=== PATIENT | male | born 1960 | race Caucasian/White ===

== ENCOUNTER 2022-04-11 15:02 | Emergency (ER) | payer SELFPAY ==
[~2022-04-11] VITALS: Ht 172.9 cm; Wt 110.9 kg
[2022-04-11 15:57] LABS: HEMATOCRIT 32 % (40-54); HEMOGLOBIN 10.6 g/dL (13.3-17.7); MEAN CORPUSCULAR HEMOGLOBIN 36 pg (25-34); MEAN CORPUSCULAR HGB CONC 34 g/dL (32-36); MEAN CORPUSCULAR VOLUME 106 fL (80-99); PLATELET COUNT 144 10^3/uL (130-400); WHITE BLOOD COUNT 13.8 10^3/uL (4.3-11.0)
[2022-04-11 15:58] LABS: BASOPHILS % (AUTO) 0 % (0-10); EOSINOPHILS # (AUTO) 0.1 10^3/uL (0.0-0.3); EOSINOPHILS % (AUTO) 1 % (0-10); LYMPHOCYTES # (AUTO) 0.6 X 10^3 (1.0-4.0); LYMPHOCYTES % (AUTO) 4 % (12-44); MEAN PLATELET VOLUME 10.1 fL (9.0-12.2); MONOCYTES # (AUTO) 1.2 X 10^3 (0.0-1.0); MONOCYTES % (AUTO) 6 % (0-12); NEUTROPHILS # (AUTO) 11.7 X 10^3 (1.8-7.8); NEUTROPHILS % (AUTO) 85 % (42-75)
[2022-04-11 16:14] LABS: BAND NEUTROPHILS 3 %; BASOPHILS % (MANUAL) 0 %; EOSINOPHILS % (MANUAL) 0 %; LYMPHOCYTES % (MANUAL) 4 %; MONOCYTES % (MANUAL) 7 %; NEUTROPHILS % (MANUAL) 86 %
[2022-04-11 16:18] LABS: BILIRUBIN,URINE NEGATIVE (NEGATIVE); CLARITY,URINE CLOUDY; COLOR,URINE BROWN; GLUCOSE, URINE (UA) NEGATIVE (NEGATIVE); KETONES,URINE NEGATIVE (NEGATIVE); LEUKOCYTE ESTERASE ,URINE 3+ (NEGATIVE); NITRITE,URINE POSITIVE (NEGATIVE); PROTEIN,URINE 2+ (NEGATIVE)
[2022-04-11 16:24] LABS: BACTERIA,URINE TRACE /HPF; RBC,URINE >100 /HPF; SQUAMOUS EPITHELIAL CELL,UR RARE /HPF; WBC,URINE 50-100 /HPF
[2022-04-11] MEDS ORDERED: cefTRIAXone 1 GM PRE-MIX 50 ML IV ONE (16:45)
[2022-04-11 16:49] LABS: CREATININE SERUM 3.58 MG/DL (0.60-1.30); POTASSIUM 5.3 MMOL/L (3.6-5.0)
[2022-04-11 16:50] LABS: ALBUMIN 3.2 GM/DL (3.2-4.5); BILIRUBIN,TOTAL 0.6 MG/DL (0.1-1.0); CALCIUM 7.8 MG/DL (8.5-10.1); TOTAL PROTEIN 6.3 GM/DL (6.4-8.2)
--- NOTE | 2022-04-11 17:29 | Diagnostic Imaging Report ---
EXAMINATION: CT abdomen and pelvis without contrast. TECHNIQUE: Multiple contiguous axial images were obtained through the abdomen and pelvis without the use of intravenous contrast. All CT scans use one or more of the following dose optimizing techniques: automated exposure control, MA and/or KvP adjustment based on patient size and exam type or iterative reconstruction. HISTORY: Flank pain, hematuria. COMPARISON: None available. FINDINGS: Lung bases: Bibasilar dependent atelectasis. Solid organs: The liver is normal. The gallbladder is normal. There is no biliary ductal dilation. Pancreas is normal. Spleen is normal. Indeterminate right adrenal nodule measuring up to 1.6 cm. There are multiple bilateral hyperdense renal cortical lesions. There is mild wall thickening and surrounding inflammatory stranding of the right renal pelvis and proximal right ureter. There is mild left hydronephrosis with wall thickening and surrounding inflammatory stranding. No visualized obstructing calculus. Bowel: The stomach and small bowel are normal without obstruction. There is scattered colonic diverticulosis. Likely focal lipoma within the descending colon. The appendix is normal. Peritoneum: There is asymmetric left perinephric stranding. No loculated fluid collection or free air. No suspicious lymphadenopathy. Vasculature: Calcification of the aorta without aneurysm. Musculoskeletal: Degenerative changes of the spine without suspicious osseous lesion or compression fracture. Pelvis: The prostate gland is normal. The urinary bladder is normal. IMPRESSION: 1. Mild left hydronephrosis with asymmetric left perinephric stranding. This finding is nonspecific and could be seen with recently passed stone or an infectious process such as pyelonephritis. Recommend correlation with urinalysis. 2. Mild wall thickening of the bilateral renal pelves and proximal ureters which could be seen with infection. 3. Bilateral small renal cortical hyperdense lesions which may represent hemorrhagic or proteinaceous cysts. These could be followed up with MRI in the nonemergent setting with IV contrast renal mass protocol. 4. Colonic diverticulosis without findings of diverticulitis. Dictated by: Dictated on workstation # [id number]
[2022-04-11] MEDS ORDERED: ACETAMINOPHEN 500 MG TAB (TYLENOL) PO ONE (17:30)
[2022-04-11] MEDS ORDERED: NITROGLYCERIN 0.4 MG SL TABS BTL 25'S SL PRN (18:30)
[2022-04-11] MEDS ORDERED: ASPIRIN 81 MG CHEW (CHILDREN'S ASA) PO ONE (18:30)
--- NOTE | 2022-04-11 19:57 | ED GU-Female ---
General Chief Complaint: - Reproductive Stated Complaint: LOWER EXTREMITY, BLOOD IN URINE Nursing Triage Note: Pt states that he has been having lower extremity edema for about 10 days, flank pain worsened last night, urinary urgency w/ bright red blood clots and mucous plugs. Pt is discheveled and states that he has been living in his van. Source: patient History of Present Illness Date Seen by Provider: Apr 11, 2022 Time Seen by Provider: 15:00 Initial Comments Patient is a 61 yo male with h/o CHF and HTN who presents with B lower peripheral edema, hematuria and low grade fever starting 2 weeks ago. Patient is currently homeless and sleeping in his van. Patient has been off all his medications including diuretic for the past few months. He denies chest pain palpitation shortness of breath. Denies abdominal pain. No history of kidney stone. Denies flank pain. Patient states he noted leg swelling after developing hematuria. He has not sought medical care for his current condition. Does not have any other acute symptoms or complaints at this time. Timing/Duration: just prior to arrival Severity/Quality: mild Location: other Radiation: other Activities at Onset: other Sexual Byers History: other Modifying Factors: Improves With Other Associated Symptoms: other Allergies and Home Medications Allergies Coded Allergies: codeine (Verified Allergy, Severe, Anaphylaxis, 04/11/22) Patient Home Medication List Home Medication List Reviewed: Yes Review of Systems Review of Systems Constitutional: see HPI EENTM: see HPI Respiratory: see HPI Cardiovascular: see HPI Gastrointestinal: see HPI Genitourinary: see HPI Musculoskeletal: see HPI Skin: see HPI Psychiatric/Neurological: See HPI Endocrine: See HPI Hematologic/Lymphatic: See HPI All Other Systemes Reviewed Negative Unless Noted: No Past Jgdelfk-Gmolbk-Rggmmf Hx Patient Social History Tobacco Use?: Yes Tobacco type used: Cigarettes Smoking Status: Heavy Tobacco Smoker Use of E-Cig and/or Vaping dev: No Substance use?: No Alcohol Use?: Yes Alcohol type: Beer Alcohol Frequency: Daily Pt feels they are or have been: No Physical Exam Vital Signs Vital Signs - First Documented 04/11/22 15:07 Temp 37.8 Pulse 100 Resp 24 B/P (MAP) 145/80 (101) Pulse Ox 97 O2 Delivery Room Air Capillary Refill : Less Than 3 Seconds Height, Weight, BMI Height: '" Weight: lbs. oz. kg; 37.00 BMI Method: General Appearance: no apparent distress HEENT: PERRL/EOMI, normal ENT inspection, pharynx normal Cardiovascular: normal peripheral pulses, regular rate, rhythm, other (Symmetric peripheral edema extending from feet to distal thigh) Gastrointestinal: non tender, soft Back: no CVA tenderness Neurologic/Psychiatric: normal mood/affect, oriented x 3 Focused Exam Sepsis Stage: Ruled Out Lactate Level 04/11/22 15:30: Lactic Acid Level 1.07 Progress/Results/Core Measures Suspected Sepsis SIRS Temperature: Pulse: 100 Respiratory Rate: 24 Laboratory Tests 04/11/22 15:30: White Blood Count 13.8H Blood Pressure 145 /80 Mean: 101 04/11/22 15:30: Lactic Acid Level 1.07 Laboratory Tests 04/11/22 15:30: Creatinine 3.58H, Platelet Count 144, Total Bilirubin 0.6 Results/Orders Lab Results Laboratory Tests Test 04/11/22 15:30 04/11/22 16:15 Range/Units White Blood Count 13.8 H 4.3-11.0 10^3/uL Red Blood Count 2.97 L 4.30-5.52 10^6/uL Hemoglobin 10.6 L 13.3-17.7 g/dL Hematocrit 32 L 40-54 % Mean Corpuscular Volume 106 H 80-99 fL Mean Corpuscular Hemoglobin 36 H 25-34 pg Mean Corpuscular Hemoglobin Concent 34 32-36 g/dL Red Cell Distribution Width 15.7 H 10.0-14.5 % Platelet Count 144 130-400 10^3/uL Mean Platelet Volume 10.1 9.0-12.2 fL Immature Granulocyte % (Auto) 1 % Neutrophils (%) (Auto) 85 H 42-75 % Lymphocytes (%) (Auto) 4 L 12-44 % Monocytes (%) (Auto) 6 0-12 % Eosinophils (%) (Auto) 1 0-10 % Basophils (%) (Auto) 0 0-10 % Neutrophils # (Auto) 11.7 H 1.8-7.8 X 10^3 Lymphocytes # (Auto) 0.6 L 1.0-4.0 X 10^3 Monocytes # (Auto) 1.2 H 0.0-1.0 X 10^3 Eosinophils # (Auto) 0.1 0.0-0.3 10^3/uL Basophils # (Auto) 0.0 0.0-0.1 10^3/uL Immature Granulocyte # (Auto) 0.2 H 0.0-0.1 10^3/uL Neutrophils % (Manual) 86 % Lymphocytes % (Manual) 4 % Monocytes % (Manual) 7 % Eosinophils % (Manual) 0 % Basophils % (Manual) 0 % Band Neutrophils 3 % Sodium Level 136 135-145 MMOL/L Potassium Level 5.3 H 3.6-5.0 MMOL/L Chloride Level 108 H 98-107 MMOL/L Carbon Dioxide Level 16 L 21-32 MMOL/L Anion Gap 12 5-14 MMOL/L Blood Urea Nitrogen 46 H 7-18 MG/DL Creatinine 3.58 H 0.60-1.30 MG/DL Estimat Glomerular Filtration Rate 18 BUN/Creatinine Ratio 13 Glucose Level 127 H 70-105 MG/DL Lactic Acid Level 1.07 0.50-2.00 MMOL/L Calcium Level 7.8 L 8.5-10.1 MG/DL Corrected Calcium 8.4 L 8.5-10.1 MG/DL Total Bilirubin 0.6 0.1-1.0 MG/DL Aspartate Amino Transf (AST/SGOT) 12 5-34 U/L Alanine Aminotransferase (ALT/SGPT) 8 0-55 U/L Alkaline Phosphatase 84 40-136 U/L Pro-B-Type Natriuretic Peptide 1328.0 H <125.0 PG/ML Total Protein 6.3 L 6.4-8.2 GM/DL Albumin 3.2 3.2-4.5 GM/DL Urine Color BROWN H Urine Clarity CLOUDY Urine pH 7.0 5-9 Urine Specific Merrill 1.015 L 1.016-1.022 Urine Protein 2+ H NEGATIVE Urine Glucose (UA) NEGATIVE NEGATIVE Urine Ketones NEGATIVE NEGATIVE Urine Nitrite POSITIVE H NEGATIVE Urine Bilirubin NEGATIVE NEGATIVE Urine Urobilinogen 0.2 < = 1.0 MG/DL Urine Leukocyte Esterase 3+ H NEGATIVE Urine RBC (Auto) 3+ H NEGATIVE Urine RBC >100 H /HPF Urine WBC 50-100 H /HPF Urine Squamous Epithelial Cells RARE /HPF Urine Crystals NONE /LPF Urine Bacteria TRACE /HPF Urine Casts NONE /LPF Urine Mucus NEGATIVE /LPF Urine Culture Indicated YES My Orders Orders - SANCHEZ NEWELL DO Cbc With Automated Diff (04/11/22 15:09) Comprehensive Metabolic Panel (04/11/22 15:09) Ua Culture If Indicated (04/11/22 15:09) Probnp Fs (04/11/22 15:09) Lactic Acid Analyzer (04/11/22 15:49) Blood Culture (04/11/22 15:49) Manual Differential (04/11/22 15:30) Blood Culture (04/11/22 15:40) Urine Culture (04/11/22 16:15) Ceftriaxone 1 Gm Pre-Mix (Rocephin 1 Gm (04/11/22 16:45) Ct Abd/Pelvis Wo(Kidney Stone) (04/11/22 16:51) Acetaminophen Tablet (Tylenol Tablet) (04/11/22 17:30) Medications Given in ED Current Medications Medications Dose Ordered Sig/Jessica Route Start Time Stop Time Status Last Admin Dose Admin Ceftriaxone Sodium/Dextrose 50 ml @ 100 mls/hr ONCE ONCE IV 04/11/22 16:45 04/11/22 17:14 DC 04/11/22 17:33 100 MLS/HR Vital Signs/I&O 04/11/22 15:07 Temp 37.8 Pulse 100 Resp 24 B/P (MAP) 145/80 (101) Pulse Ox 97 O2 Delivery Room Air Capillary Refill : Less Than 3 Seconds Blood Pressure Mean: 101 Departure Communication (Admissions) CT abdomen pelvis: Ascending urinary tract infection with hydronephrosis and perirenal hemorrhagic cysts Patient with acute kidney failure with pyelonephritis with lower urinary tract infection. IV fluids antibiotics given. Vital signs remained stable. Patient will require hospital admission to facility with nephrology. Patient declined at , [facility], [facility], [facility], and [facility]. Patient accepted to [facility] in [facility] per Dr. Tamayo. Impression Primary Impression: Urinary tract infection Additional Impression: Acute kidney failure Disposition: 62 DISC/XFER TO IRF Condition: Stable Transfer Transfer Reason: Exceeds level of care Time Spoke to Accepting Phy: 20:05 (Dr. Tamayo) Method of Transfer: EMS Departure-Patient Inst. Referrals: WILEY SIMMONS MD (PCP/Family) Primary Care Physician SANCHEZ NEWELL DO Apr 11, 2022 19:57
[2022-04-11 22:40] VITALS: BP 121/76
== END 2022-04-11 22:40 | disposition short-term general hospital (02) ==
LOC: ER FS 15:05
DX: N39.0 Urinary tract infection, site not specified (principal); N17.9 Acute kidney failure, unspecified; F17.210 Nicotine dependence, cigarettes, uncomplicated; Z28.310 Unvaccinated for COVID-19
CPT/HCPCS: 36415; 74176; 80053; 81000; 83605; 83880; 85007; 85027; 87040; 87088

== ENCOUNTER 2022-05-28 12:26 | Inpatient (IN) | payer MEDICAID, OTHER ==
[~2022-05-28] VITALS: Ht 182 cm; Wt 109.4 kg
--- NOTE | 2022-05-28 12:31 | ED GU-Male ---
General Chief Complaint: General Problems/Pain Stated Complaint: SCROTUM WOUND Source: patient History of Present Illness Date Seen by Provider: May 28, 2022 Time Seen by Provider: 12:29 Initial Comments 61-year-old male presenting with complaints of pain and swelling to his scrotum. He states that this is been going on for at least several days. He denies having fever or chills. He thinks that there may be some drainage from his scrotum. He reports being homeless and sleeping in his van. He is not taking any prescription medicines at this time. He has recently been seen at [facility] and states he was discharged about 5 to 6 weeks ago. While he was there he had an abscess on his kidney and had renal failure. He reports that he believes that they told him that his renal function was a creatinine of 3.4 which I thought was his baseline. He has not followed up with his primary care doctor in [place] since he was discharged. He also did not go to see his primary care doctor about this current issue. He thinks that part of the problem is that he does not have access to a shower or bathing facilities on a regular basis. He has had previous infection with removal of testicle previously. He states that was due to infection spreading through his groin but also was waiting more at that time. He has not taken anything for pain. He states that he drinks alcohol least half a pint to a pint of vodka every day. He also smokes a pack of cigarettes a day. Timing/Duration: getting worse (over the last few days) Severity/Quality: moderate Location: scrotal Prior Genitourinary Problems: similar symptoms (several years ago when he had infection and had testicle removed) Sexual Benjamin Perez History: not active Modifying Factors: Worsens With Movement, Worsens With Palpation Associated Symptoms: No abdominal pain, No diaphoresis, No dysuria, No fever/chills, No loss of bladder control, No lower back pain, No lumps, No mass, No nausea/vomiting, No nocturia, No polyuria; swelling (scrotum); No syncope, No urinary frequency Allergies and Home Medications Allergies Coded Allergies: codeine (Verified Allergy, Severe, Anaphylaxis, 04/11/22) Patient Home Medication List Home Medication List Reviewed: Yes Review of Systems Review of Systems Constitutional: No chills, No fever EENTM: no symptoms reported Respiratory: no symptoms reported Cardiovascular: edema (chronic peripheral edema) Gastrointestinal: no symptoms reported Genitourinary: see HPI Musculoskeletal: no symptoms reported Skin: see HPI Psychiatric/Neurological: No Symptoms Reported Past Dxivdrf-Awoqjs-Yrfytq Hx Patient Social History Tobacco Use?: Yes Tobacco type used: Cigarettes Smoking Status: Current Everyday Smoker Substance use?: No Alcohol Use?: Yes Alcohol type: Hard Liquor (Vodka) Alcohol Frequency: Daily (1/2 pint to pint daily) Past Medical History Surgery/Hospitalization HX: chronic renal failure, peripheral edema Surgeries: Yes 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 oz. kg; 37.00 BMI Method: General Appearance: obese, other (disheveled appearance with poor personal hygiene) HEENT: PERRL/EOMI Cardiovascular: normal peripheral pulses, tachycardia (110 bpm) Respiratory: chest non-tender, lungs clear, normal breath sounds Gastrointestinal: normal bowel sounds, non tender, soft, no pulsatile mass Male: erythema (redness and swelling to scrotum with tenderness to palpation. no drainage, fluctuance, or open wound noted. He has some induration to the erythematous scrotum on left side extending down to perineum) Extremities: normal range of motion, pedal edema (2+ pitting edema to BLE) Neurologic/Psychiatric: alert, oriented x 3 Skin: warm/dry Focused Exam Lactate Level 05/28/22 12:55: Lactic Acid Level 1.98 Lactic Acid Level Laboratory Tests Test 05/28/22 12:55 Lactic Acid Level 1.98 MMOL/L (0.50-2.00) Progress/Results/Core Measures Suspected Sepsis SIRS Temperature: Pulse: Respiratory Rate: Laboratory Tests 05/28/22 12:55: White Blood Count 16.9H Blood Pressure / Mean: 05/28/22 12:55: Lactic Acid Level 1.98 Laboratory Tests 05/28/22 12:55: Creatinine 3.48H, Platelet Count 169, Total Bilirubin 0.4 Results/Orders Lab Results Laboratory Tests Test 05/28/22 12:55 05/28/22 13:47 Range/Units White Blood Count 16.9 H 4.3-11.0 10^3/uL Red Blood Count 3.32 L 4.30-5.52 10^6/uL Hemoglobin 12.0 L 13.3-17.7 g/dL Hematocrit 35 L 40-54 % Mean Corpuscular Volume 105 H 80-99 fL Mean Corpuscular Hemoglobin 36 H 25-34 pg Mean Corpuscular Hemoglobin Concent 34 32-36 g/dL Red Cell Distribution Width 14.5 10.0-14.5 % Platelet Count 169 130-400 10^3/uL Mean Platelet Volume 10.6 9.0-12.2 fL Immature Granulocyte % (Auto) 1 % Neutrophils (%) (Auto) 89 H 42-75 % Lymphocytes (%) (Auto) 3 L 12-44 % Monocytes (%) (Auto) 7 0-12 % Eosinophils (%) (Auto) 0 0-10 % Basophils (%) (Auto) 0 0-10 % Neutrophils # (Auto) 15.1 H 1.8-7.8 10^3/uL Lymphocytes # (Auto) 0.5 L 1.0-4.0 10^3/uL Monocytes # (Auto) 1.1 H 0.0-1.0 10^3/uL Eosinophils # (Auto) 0.0 0.0-0.3 10^3/uL Basophils # (Auto) 0.0 0.0-0.1 10^3/uL Immature Granulocyte # (Auto) 0.1 0.0-0.1 10^3/uL Neutrophils % (Manual) 86 % Lymphocytes % (Manual) 4 % Monocytes % (Manual) 3 % Eosinophils % (Manual) 1 % Basophils % (Manual) 0 % Band Neutrophils 6 % Sodium Level 134 L 135-145 MMOL/L Potassium Level 5.5 H 3.6-5.0 MMOL/L Chloride Level 103 98-107 MMOL/L Carbon Dioxide Level 14 L 21-32 MMOL/L Anion Gap 17 H 5-14 MMOL/L Blood Urea Nitrogen 45 H 7-18 MG/DL Creatinine 3.48 H 0.60-1.30 MG/DL Estimat Glomerular Filtration Rate 19 BUN/Creatinine Ratio 13 Glucose Level 148 H 70-105 MG/DL Lactic Acid Level 1.98 0.50-2.00 MMOL/L Calcium Level 8.6 8.5-10.1 MG/DL Corrected Calcium 9.2 8.5-10.1 MG/DL Total Bilirubin 0.4 0.1-1.0 MG/DL Aspartate Amino Transf (AST/SGOT) 24 5-34 U/L Alanine Aminotransferase (ALT/SGPT) 7 0-55 U/L Alkaline Phosphatase 77 40-136 U/L C-Reactive Protein 22.98 H <0.50 MG/DL Total Protein 7.2 6.4-8.2 GM/DL Albumin 3.2 3.2-4.5 GM/DL Urine Color YELLOW Urine Clarity CLOUDY Urine pH 7.0 5-9 Urine Specific [place] 1.010 L 1.016-1.022 Urine Protein NEGATIVE NEGATIVE Urine Glucose (UA) NEGATIVE NEGATIVE Urine Ketones 1+ H NEGATIVE Urine Nitrite POSITIVE H NEGATIVE Urine Bilirubin NEGATIVE NEGATIVE Urine Urobilinogen 0.2 < = 1.0 MG/DL Urine Leukocyte Esterase 3+ H NEGATIVE Urine RBC (Auto) 1+ H NEGATIVE Urine RBC NONE /HPF Urine WBC 50-100 H /HPF Urine Squamous Epithelial Cells NONE /HPF Urine Crystals NONE /LPF Urine Bacteria LARGE H /HPF Urine Casts NONE /LPF Urine Mucus NEGATIVE /LPF Urine Culture Indicated YES My Orders Orders - SONNY DAVID MD Us Scrotum (Testicle) [id number] (05/28/22 12:43) Cbc With Automated Diff (05/28/22 12:44) Comprehensive Metabolic Panel (05/28/22 12:44) Blood Culture (05/28/22 12:44) Ua Culture If Indicated (05/28/22 12:44) Ed Iv/Invasive Line Start (05/28/22 12:44) Crp Fs (05/28/22 12:44) Lactic Acid Analyzer (05/28/22 12:44) Ceftriaxone 1 Gm Pre-Mix (Rocephin 1 Gm (05/28/22 12:44) Ns Iv 500 Ml (Sodium Chloride 0.9%) (05/28/22 12:44) Manual Differential (05/28/22 12:55) Ct Pelvis Wo (05/28/22 13:41) Urine Culture (05/28/22 13:47) Ed Admission (Communication) (05/28/22 14:59) Code/Resuscitation (05/28/22 15:13) Fentanyl Inj (Sublimaze Injection) (05/28/22 15:51) Vital Signs/I&O 05/28/22 05/28/22 13:07 15:45 Temp 36.4 35.6 Pulse 107 92 Resp 18 16 B/P (MAP) 147/81 (103) 145/81 Pulse Ox 100 99 O2 Delivery Room Air Capillary Refill : Progress Note #1: Progress Note Obtain basic labs, blood cultures, lactic acid and order an ultrasound of the scrotum. Give normal saline 500 mL IV bolus for hydration and his tachycardia. Rocephin 1 g IV for cellulitis of the scrotum after the blood cultures and lactic acid are obtained. Differential diagnosis includes cellulitis, Marie's gangrene, cystocele, vesicocele, scrotal abscess, sepsis Progress Note #2: Time: 13:17 Progress Note CBC shows elevated white blood cell count 16.9 with a left shift. Hemoglobin shows mild anemia with a count of 12. Awaiting chemistry panel with electrolytes and lactic acid as well as urinalysis and ultrasound. Progress Note #3: Time: 13:54 Progress Note Chemistry shows elevated BUN and Cr. Cr is 3.48, which is consistent with what patient reports he was told would be his baseline Cr when he was in [facility] over a month ago. Lactic acid is stable at 1.98. radiologic technology program director showed me images with a large fluid collection involving patient's left scrotum and perineum. Unable to visualize testicle on that side, but again pt reports prior infection that caused gangrene to testicle and removal of the testicle. Will add on CT scan of pelvis to try and get more details of the fluid collection/cellulitis involving his scrotum. Progress Note #4: Time: 14:[address] scan shows a large complex fluid collection in the area of the left scrotum measuring 7.4 x 1.3 x 3.9 cm. He also has a right inguinal hernia with movement of the testicle into the thigh and a large fluid-filled sac with the hernia. With a large complex fluid collection in the left scrotum will check in with surgeon on-call about treatment. His urine was showing UTI and from review of his prior visit 04/11 he had Proteus Mirabilis grow out in his urine culture. It was sensitive to cephalosporins so will continue with Ceftriaxone for now. Progress Note #5: Time: 15:14 Progress Note After discussion with Dr. Carreno and Dr. Elias they accepted pt for admit but Dr. Elias was requesting more clarification about the hx of cellulitis and testicle removal, and Dr. Carreno requested we clarify his code status. D/w patient and he said it was 4-5 years ago at [facility] for his surgery to remove the testicle and he thought they had removed both of them. He said he thought he had paperwork at for his code status but he advised that he would not want his heart to be restarted or put on ventilator and intubated so he requests to be DNR. Will place this order in the computer. Diagnostic Imaging Diagonstic Imaging: Ultrasound Plain Films/CT/US/NM/MRI: other (Scrotum) Comments [facility]. [place], [place] NAME: NICHOLE ZULETA [facility] REC#: [id number] PT STATUS: REG ER : 1960 PHYSICIAN: SONNY DAVID MD ADMIT DATE: 05/28/22/ER FS Draft Date of Exam:05/28/22 US SCROTUM (TESTICLE) [id number] PROCEDURE: US Scrotum. TECHNIQUE: Multiple real-time grayscale images were obtained over the scrotum in various projections bilaterally. INDICATION: Scrotal pain and erythema. Patient status post left orchiectomy. There is nondistended right testicle which is in the inguinal canal. The testicle has normal echogenicity and blood flow. There appears to be scrotal wall thickening. There is a complex mass within the left scrotal sac. It has internal vascularity. This may be herniation of mesenteric fat. IMPRESSION: Undescended right testicle. Suspected left scrotal hernia with herniated mesenteric fat. Further evaluation with CT recommended. Dictated on workstation # [id number] Dict: 05/28/22 1409 Trans: 05/28/22 1416 CVB [id number] Interpreted by: MILAN AC MD Electronically signed by: Diagonstic Imaging: CT Plain Films/CT/US/NM/MRI: pelvis Comments NAME: NICHOLE ZULETA [facility] REC#: [id number] PT STATUS: REG ER : 1960 PHYSICIAN: SONNY DAVID MD ADMIT DATE: 05/28/22/ER FS Draft Date of Exam:05/28/22 CT PELVIS WO PROCEDURE: CT pelvis without contrast. TECHNIQUE: Multiple contiguous axial images were obtained through the pelvis without the use of intravenous contrast. Sagittal and coronal reformations were performed. Auto Exposure Controls were utilized during the CT exam to meet ALARA standards for radiation dose reduction. INDICATION: Scrotal pain. FINDINGS: There are postsurgical changes from left orchiectomy. The right scrotal sac appears to have herniated into the upper anterior thigh. The right testicle appears to be within this hernia. The hernia sac itself is largely fluid filled and measures 14 cm in length and 3.6 cm in diameter. There is also a fatty inguinal hernia extending up from the same defect superiorly in normal fashion. There is a complex lesion in the region of the left scrotal sac measuring 7.4 x 1.3 x 3.9 cm. There appears to be induration of the overlying skin. Differential considerations include hematoma, abscess, and/or neoplasm. IMPRESSION: Large complex right inguinal hernia with extension of the hernia sac into the anterior upper subcutaneous thigh. The testicle has herniated down into the upper thigh. There is a complex fluid collection/mass in the left scrotal sac with surrounding induration of the skin suggesting cellulitis. Differential considerations would include abscess, hematoma, and/or neoplasm. Dictated on workstation # [id number] Dict: 05/28/22 1415 Trans: 05/28/22 1422 [id number] Interpreted by: MILAN AC MD Electronically signed by: Reviewed: Reviewed by Me Departure Communication (Admissions) Time/Spoke to Admitting Phy: 14:[address] Carreno about admission and treating with antibiotics and fluids. She was agreeable with the plan and with the consult to Dr. Elias for general surgery to see if the abscess was anything that he could drain. Time/Spoke to Consulting Phy: 14:[address] Elias for general surgery about the patient with his scrotal abscess and a history of prior abscess and infection requiring removal of his testicle. He was agreeable to see the patient in consult and possibly do an I&D provided the medical service was going to admit him since he has other chronic medical conditions that he is not actively seeking treatment for at this time. Impression Primary Impression: Scrotal abscess Additional Impressions: Cellulitis of scrotum Right inguinal hernia Chronic renal failure, stage 4 (severe) Disposition: 30 STILL A PATIENT Condition: Stable Admissions Decision to Admit Reason: Admit from ER (General) Decision to Admit/Date: May 28, 2022 Time/Decision to Admit Time: 14:53 Departure-Patient Inst. Referrals: WILEY SIMMONS MD (PCP) Primary Care Physician SONNY DAVID MD May 28, 2022 12:30
[2022-05-28] MEDS ORDERED: cefTRIAXone 1 GM PRE-MIX 50 ML IV STA (12:44)
[2022-05-28] MEDS ORDERED: NS IV 500 ML 500 ML IV STA (12:44)
[2022-05-28 13:09] LABS: BASOPHILS % (AUTO) 0 % (0-10); EOSINOPHILS % (AUTO) 0 % (0-10); HEMATOCRIT 35 % (40-54); LYMPHOCYTES # (AUTO) 0.5 10^3/uL (1.0-4.0); LYMPHOCYTES % (AUTO) 3 % (12-44); MEAN CORPUSCULAR HEMOGLOBIN 36 pg (25-34); MEAN CORPUSCULAR HGB CONC 34 g/dL (32-36); MEAN CORPUSCULAR VOLUME 105 fL (80-99); MEAN PLATELET VOLUME 10.6 fL (9.0-12.2); MONOCYTES # (AUTO) 1.1 10^3/uL (0.0-1.0); MONOCYTES % (AUTO) 7 % (0-12); NEUTROPHILS # (AUTO) 15.1 10^3/uL (1.8-7.8); NEUTROPHILS % (AUTO) 89 % (42-75); PLATELET COUNT 169 10^3/uL (130-400); WHITE BLOOD COUNT 16.9 10^3/uL (4.3-11.0)
[2022-05-28 13:31] LABS: POTASSIUM 5.5 MMOL/L (3.6-5.0)
[2022-05-28 13:32] LABS: ALBUMIN 3.2 GM/DL (3.2-4.5); BILIRUBIN,TOTAL 0.4 MG/DL (0.1-1.0); CALCIUM 8.6 MG/DL (8.5-10.1); CREATININE SERUM 3.48 MG/DL (0.60-1.30); TOTAL PROTEIN 7.2 GM/DL (6.4-8.2)
[2022-05-28 13:33] LABS: BAND NEUTROPHILS 6 %; NEUTROPHILS % (MANUAL) 86 %
[2022-05-28 13:34] LABS: BASOPHILS % (MANUAL) 0 %; EOSINOPHILS % (MANUAL) 1 %; LYMPHOCYTES % (MANUAL) 4 %; MONOCYTES % (MANUAL) 3 %
--- NOTE | 2022-05-28 14:17 | Diagnostic Imaging Report ---
PROCEDURE: US Scrotum. TECHNIQUE: Multiple real-time grayscale images were obtained over the scrotum in various projections bilaterally. INDICATION: Scrotal pain and erythema. Patient status post left orchiectomy. There is nondistended right testicle which is in the inguinal canal. The testicle has normal echogenicity and blood flow. There appears to be scrotal wall thickening. There is a complex mass within the left scrotal sac. It has internal vascularity. This may be herniation of mesenteric fat. IMPRESSION: Undescended right testicle. Suspected left scrotal hernia with herniated mesenteric fat. Further evaluation with CT recommended. Dictated by: Dictated on workstation # [id number]
--- NOTE | 2022-05-28 14:23 | Diagnostic Imaging Report ---
PROCEDURE: CT pelvis without contrast. TECHNIQUE: Multiple contiguous axial images were obtained through the pelvis without the use of intravenous contrast. Sagittal and coronal reformations were performed. Auto Exposure Controls were utilized during the CT exam to meet ALARA standards for radiation dose reduction. INDICATION: Scrotal pain. FINDINGS: There are postsurgical changes from left orchiectomy. The right scrotal sac appears to have herniated into the upper anterior thigh. The right testicle appears to be within this hernia. The hernia sac itself is largely fluid filled and measures 14 cm in length and 3.6 cm in diameter. There is also a fatty inguinal hernia extending up from the same defect superiorly in normal fashion. There is a complex lesion in the region of the left scrotal sac measuring 7.4 x 1.3 x 3.9 cm. There appears to be induration of the overlying skin. Differential considerations include hematoma, abscess, and/or neoplasm. IMPRESSION: Large complex right inguinal hernia with extension of the hernia sac into the anterior upper subcutaneous thigh. The testicle has herniated down into the upper thigh. There is a complex fluid collection/mass in the left scrotal sac with surrounding induration of the skin suggesting cellulitis. Differential considerations would include abscess, hematoma, and/or neoplasm. Dictated by: Dictated on workstation # [id number]
[2022-05-28 14:35] LABS: CLARITY,URINE CLOUDY; COLOR,URINE YELLOW; GLUCOSE, URINE (UA) NEGATIVE (NEGATIVE); PROTEIN,URINE NEGATIVE (NEGATIVE)
[2022-05-28 14:36] LABS: BACTERIA,URINE LARGE /HPF; BILIRUBIN,URINE NEGATIVE (NEGATIVE); KETONES,URINE 1+ (NEGATIVE); LEUKOCYTE ESTERASE ,URINE 3+ (NEGATIVE); NITRITE,URINE POSITIVE (NEGATIVE); WBC,URINE 50-100 /HPF
[2022-05-28] MEDS ORDERED: fentaNYL INJ 100 MCG/2 ML AMP IVP STA (15:51)
[2022-05-28] MEDS ORDERED: ANTACID SUSP 30 ML UDC (MYLANTA) PO PRN (17:30)
[2022-05-28] MEDS ORDERED: VANCOMYCIN INJECTION 0.1 MG in NS (IVPB) 250 ML IV SCH (17:30)
[2022-05-28] MEDS ORDERED: ONDANSETRON 4 MG/2 ML (SDV) Z0FRAN IV PRN (17:30)
[2022-05-28] MEDS ORDERED: BENZONATATE 100 MG (TESSALON) CAPSULE PO PRN (17:30)
[2022-05-28] MEDS ORDERED: PIPERACILLIN SODIUM/TAZOBACTAM 4.5 GM in NS (IVPB) 100 ML IV NR (17:45)
[2022-05-28 18:00] VITALS: BP 140/83
[2022-05-28] MEDS ORDERED: VANCOMYCIN 2000 MG/NS 500 ML IVPB IV NR ×2 (18:00)
[2022-05-28] MEDS: LACTATED RINGERS 1,000 ML IV SCH ×2 (18:37→22:59)
[2022-05-28 20:00] VITALS: BP 126/75
[2022-05-28] MEDS: PIPERACILLIN SODIUM/TAZOBACTAM 4.5 GM in NS (IVPB) 100 ML IV SCH (22:59)
[2022-05-28 23:42] VITALS: BP 136/79
[2022-05-29] VITALS (13 sets, daily range): BP systolic 91–123; BP diastolic 53–74
[2022-05-29 05:58] LABS: BASOPHILS % (AUTO) 0 % (0-10); EOSINOPHILS # (AUTO) 0.1 10^3/uL (0.0-0.3); EOSINOPHILS % (AUTO) 1 % (0-10); HEMATOCRIT 30 % (40-54); HEMOGLOBIN 10.2 g/dL (13.3-17.7); LYMPHOCYTES # (AUTO) 0.6 10^3/uL (1.0-4.0); LYMPHOCYTES % (AUTO) 4 % (12-44); MEAN CORPUSCULAR HEMOGLOBIN 36 pg (25-34); MEAN CORPUSCULAR HGB CONC 34 g/dL (32-36); MEAN CORPUSCULAR VOLUME 106 fL (80-99); MEAN PLATELET VOLUME 10.7 fL (9.0-12.2); MONOCYTES % (AUTO) 7 % (0-12); NEUTROPHILS # (AUTO) 12.2 10^3/uL (1.8-7.8); NEUTROPHILS % (AUTO) 87 % (42-75); PLATELET COUNT 148 10^3/uL (130-400); WHITE BLOOD COUNT 14.1 10^3/uL (4.3-11.0)
[2022-05-29] MEDS: LACTATED RINGERS 1,000 ML IV SCH ×2 (06:03→08:05)
[2022-05-29 06:10] LABS: ALBUMIN 2.7 GM/DL (3.2-4.5)
[2022-05-29 06:11] LABS: POTASSIUM 4.4 MMOL/L (3.6-5.0)
[2022-05-29 06:12] LABS: CALCIUM 8.1 MG/DL (8.5-10.1)
[2022-05-29 06:13] LABS: TOTAL PROTEIN 5.9 GM/DL (6.4-8.2)
[2022-05-29 06:15] LABS: BILIRUBIN,TOTAL 0.4 MG/DL (0.1-1.0)
[2022-05-29 06:17] LABS: CREATININE SERUM 3.51 MG/DL (0.60-1.30)
[2022-05-29] MEDS: PIPERACILLIN SODIUM/TAZOBACTAM 4.5 GM in NS (IVPB) 100 ML IV SCH ×2 (07:49→15:04)
--- NOTE | 2022-05-29 08:03 | Consultation - Surgery ---
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 He presented to the ED 05/28 after experiencing swelling and redness on the left side of his scrotum. Pt reports this began 4-5 days ago and has remained constant, the swelling has not enlarged. Pt reports no drainage of pus or blood from the wound. He denies any changes in urine color or dysuria. He also denies fever, chills, and night sweats. No pain at rest, 3/10 pain when the pt gets out of his van as this causes the scrotum to slide across the seat. Left scrotal area is erythematous, swollen, and hot to the touch. 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 Pt had somewhat similar symptoms 2-3 years ago when he had a left orchiectomy done after developing an "infected testicle". Pt has hx of BPH with recurrent UTI, most recent infx was a renal abscess treated at [facility] in [place] a few weeks ago according to the pt. Laser surgery to prostate 4 yrs ago, less frequent UTI since that time. Pt feels like he completely empties his bladder. Allergies and Home Medications Allergies Coded Allergies: codeine (Verified Allergy, Severe, Anaphylaxis, 04/11/22) Patient Home Medication List Home Medication List Reviewed: Yes Acetaminophen (Tylenol Extra Strength) 500 Mg Tablet, 1,000 MG PO Q8H PRN for PAIN-MILD (1-4), (Reported) Entered as Reported by: ADRIANA WILSON on 05/29/22 1008 Last Action: Reviewed Ascorbic Acid (Vitamin C) 500 Mg Tablet, 500 MG PO DAILY, (Reported) Entered as Reported by: ADRIANA WILSON on 05/29/22 1008 Last Action: Reviewed Cholecalciferol (Vitamin D3) (Vitamin D3) 50 Mcg (2000 Unit) Capsule, 50 MCG PO DAILY, (Reported) Entered as Reported by: ADRIANA WILSON on 05/29/22 100 Last Action: Reviewed Magnesium Oxide (Magnesium) 400 Mg Magnesium Tablet, 400 MG PO DAILY, (Reported) Entered as Reported by: ADRIANA WILSON on 05/29/22 100 Last Action: Reviewed Past Cklgxua-Qeyiar-Uvsmut Hx Patient Social History Smoking Status: Current Everyday Smoker (50 pack year history) Recent Hopitalizations: Yes Ebola Symptoms: Denies Symptoms Listed (renal abscess treated with abx at [facility]) Alcohol Use?: Yes Substance type: Marijuana Have you traveled recently?: No Surgeries History of Surgeries: Yes (laser surgery to prostate 4 yrs ago) Surgeries: 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) Respiratory History of Respiratory Disorde: No Cardiovascular History of Cardiac Disorders: Yes Cardiac Disorders: Chronic Edema/Swelling (pt was told in the past he has CHF) Neurological History of Neurological Disord: No Genitourinary History of Genitourinary Disor: Yes Genitourinary Disorders: Benign Prostatic Hyperpl, Kidney Infection, Renal Failure Gastrointestinal History of Gastrointestinal Di: No Musculoskeletal History of Musculoskeletal Dis: No Endocrine History of Endocrine Disorders: No HEENT Loss of Vision: Denies Hearing Impairment: Denies Cancer History of Cancer: No Integumentary History of Skin or Integumenta: Yes Skin/Integumentary Disorders: Recent Skin Changes (erythema and swelling of left scrotum) Family Medical History Significant Family History: Cancer (mother lung cancer, grandfather renal cancer), Diabetes (in father and grandmother), Other Conditions/Hx (pt denied family hx of AL or stroke) Review of Systems-General Constitutional: No chills, No diaphoresis, No fever EENTM: No hearing loss, No vision loss Respiratory: cough (intermittent); No short of breath Cardiovascular: No chest pain, No palpitations Gastrointestinal: No abdominal pain; diarrhea (pt reports frequent dark watery stools for several months); No nausea, No vomiting Genitourinary: No discharge, No dysuria, No hematuria Skin: other (erythema and warmth of left scrotum) Psychiatric/Neurological: Denies Headache, Denies Seizure Physical Exam-General Problems Physical Exam Vital Signs Vital Signs - First Documented 05/28/22 13:07 Temp 36.4 Pulse 107 Resp 18 B/P (MAP) 147/81 (103) Pulse Ox 100 O2 Delivery Room Air Capillary Refill : General Appearance: no apparent distress, other (pt lives in van, infrequent access to bathing) Eyes: Bilateral Eye PERRL, Bilateral Eye EOMI HEENT: PERRL/EOMI; No scleral icterus (R), No scleral icterus (L) Neck: non-tender, supple Respiratory: chest non-tender, lungs clear, normal breath sounds, no accessory muscle use, wheezing (very slight expiratory wheeze bl) Cardiovascular: regular rate, rhythm, no murmur Peripheral Pulses: 2+ Radial Pulses (R), 2+ Radial Pulses (L) Gastrointestinal: normal bowel sounds, non tender, soft Rectal: deferred Genital/Rectal: other (swelling, erythema, and warmth on left scrotum) Extremities: no calf tenderness, pedal edema (up to mid henao bl, pt reports this is baseline) Neurologic/Psychiatric: alert, oriented x 3; No facial droop Skin: No diaphoresis; other (left scrotal swelling, redness, and warmth) Lymphatic: no adenopathy (cervical and inguinal) Data Review Labs Laboratory Tests 05/28/22 12:55: White Blood Count 16.9H, Red Blood Count 3.32L, Hemoglobin 12.0L, Hematocrit 35L , Mean Corpuscular Volume 105H, Mean Corpuscular Hemoglobin 36H, Mean Corpuscular Hemoglobin Concent 34, Red Cell Distribution Width 14.5, Platelet Count 169, Mean Platelet Volume 10.6, Immature Granulocyte % (Auto) 1, Neutrophils (%) (Auto) 89H, Lymphocytes (%) (Auto) 3L, Monocytes (%) (Auto) 7, Eosinophils (%) (Auto) 0, Basophils (%) (Auto) 0, Neutrophils # (Auto) 15.1H, Lymphocytes # (Auto) 0.5L, Monocytes # (Auto) 1.1H, Eosinophils # (Auto) 0.0, Basophils # (Auto) 0.0, Immature Granulocyte # (Auto) 0.1, Neutrophils % (Manual) 86, Lymphocytes % (Manual) 4, Monocytes % (Manual) 3, Eosinophils % (Manual) 1, Basophils % (Manual) 0, Band Neutrophils 6, Sodium Level 134L, Potassium Level 5.5H, Chloride Level 103, Carbon Dioxide Level 14L, Anion Gap 17H, Blood Urea Nitrogen 45H, Creatinine 3.48H, Estimat Glomerular Filtration Rate 19, BUN/Creatinine Ratio 13, Glucose Level 148H, Lactic Acid Level 1.98, Calcium Level 8.6, Corrected Calcium 9.2, Total Bilirubin 0.4, Aspartate Amino Transf (AST/SGOT) 24, Alanine Aminotransferase (ALT/SGPT) 7, Alkaline Phosphatase 77, C-Reactive Protein 22.98H, Total Protein 7.2, Albumin 3.2 05/28/22 13:47: Urine Color YELLOW, Urine Clarity CLOUDY, Urine pH 7.0, Urine Specific [place] 1.010L, Urine Protein NEGATIVE, Urine Glucose (UA) NEGATIVE, Urine Ketones 1+H, Urine Nitrite POSITIVEH, Urine Bilirubin NEGATIVE, Urine Urobilinogen 0.2, Urine Leukocyte Esterase 3+H, Urine RBC (Auto) 1+H, Urine RBC NONE, Urine WBC 50-100H, Urine Squamous Epithelial Cells NONE, Urine Crystals NONE, Urine Bacteria LARGEH , Urine Casts NONE, Urine Mucus NEGATIVE, Urine Culture Indicated YES 05/29/22 05:25: White Blood Count 14.1H, Red Blood Count 2.87L, Hemoglobin 10.2L, Hematocrit 30L , Mean Corpuscular Volume 106H, Mean Corpuscular Hemoglobin 36H, Mean Corpus cular Hemoglobin Concent 34, Red Cell Distribution Width 14.2, Platelet Count 148, Mean Platelet Volume 10.7, Immature Granulocyte % (Auto) 1, Neutrophils (%) (Auto) 87H, Lymphocytes (%) (Auto) 4L, Monocytes (%) (Auto) 7, Eosinophils (%) (Auto) 1, Basophils (%) (Auto) 0, Neutrophils # (Auto) 12.2H, Lymphocytes # (Auto) 0.6L, Monocytes # (Auto) 1.0, Eosinophils # (Auto) 0.1, Basophils # (Auto) 0.0, Immature Granulocyte # (Auto) 0.2H, Sodium Level 132L, Potassium Level 4.4, Chloride Level 113#H, Carbon Dioxide Level 10L, Anion Gap 9, Blood Urea Nitrogen 44H, Creatinine 3.51H, Estimat Glomerular Filtration Rate 19, BUN/Creatinine Ratio 13, Glucose Level 103, Calcium Level 8.1L, Corrected Calcium 9.1, Total Bilirubin 0.4, Aspartate Amino Transf (AST/SGOT) 9, Alanine Aminotransferase (ALT/SGPT) 7, Alkaline Phosphatase 52, Total Protein 5.9L, Albumin 2.7L Radiology NAME: NICHOLE ZULETA [facility] REC#: [id number] PT STATUS: REG ER : 1960 PHYSICIAN: SONNY DAVID MD ADMIT DATE: 05/28/22/ER FS Signed Date of Exam:05/28/22 CT PELVIS WO PROCEDURE: CT pelvis without contrast. TECHNIQUE: Multiple contiguous axial images were obtained through the pelvis without the use of intravenous contrast. Sagittal and coronal reformations were performed. Auto Exposure Controls were utilized during the CT exam to meet ALARA standards for radiation dose reduction. INDICATION: Scrotal pain. FINDINGS: There are postsurgical changes from left orchiectomy. The right scrotal sac appears to have herniated into the upper anterior thigh. The right testicle appears to be within this hernia. The hernia sac itself is largely fluid filled and measures 14 cm in length and 3.6 cm in diameter. There is also a fatty inguinal hernia extending up from the same defect superiorly in normal fashion. There is a complex lesion in the region of the left scrotal sac measuring 7.4 x 1.3 x 3.9 cm. There appears to be induration of the overlying skin. Differential considerations include hematoma, abscess, and/or neoplasm. IMPRESSION: Large complex right inguinal hernia with extension of the hernia sac into the anterior upper subcutaneous thigh. The testicle has herniated down into the upper thigh. There is a complex fluid collection/mass in the left scrotal sac with surrounding induration of the skin suggesting cellulitis. Differential considerations would include abscess, hematoma, and/or neoplasm. Dictated by: Dictated on workstation # [id number] Dict: 05/28/22 1415 Trans: 05/28/22 1631 [id number] Interpreted by: MILAN AC MD Electronically signed by: MILAN AC MD 05/28/22 1631 NAME: NICHOLE ZULETA [facility] REC#: [id number] PT STATUS: REG ER : 1960 PHYSICIAN: SONNY DAVID MD ADMIT DATE: 05/28/22/ER FS Signed Date of Exam:05/28/22 US SCROTUM (TESTICLE) [id number] PROCEDURE: US Scrotum. TECHNIQUE: Multiple real-time grayscale images were obtained over the scrotum in various projections bilaterally. INDICATION: Scrotal pain and erythema. Patient status post left orchiectomy. There is nondistended right testicle which is in the inguinal canal. The testicle has normal echogenicity and blood flow. There appears to be scrotal wall thickening. There is a complex mass within the left scrotal sac. It has internal vascularity. This may be herniation of mesenteric fat. IMPRESSION: Undescended right testicle. Suspected left scrotal hernia with herniated mesenteric fat. Further evaluation with CT recommended. 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 Pt will need to be made NPO for I&D of left scrotal abscess, continue iv abx and fluids for cellulitis and UTI. Continue to monitor vitals and WBCs. Pt has creatinine of 3.51, pt reports this is baseline according to his ticket broker at [facility]. LEONA ANGEL DO 05/29/22 1118: History of Present Illness History of Present Illness Time Seen by Provider: 10:58 History of Present Illness Surgery asked to consult regarding Scrotal abscess. HPI per ED: 61-year-old male presenting with complaints of pain and swelling to his scrotum. He states that this is been going on for at least several days. He denies having fever or chills. He thinks that there may be some drainage from his scrotum. He reports being homeless and sleeping in his van. He is not taking any prescription medicines at this time. He has recently been seen at [facility] and states he was discharged about 5 to 6 weeks ago. While he was there he had an abscess on his kidney and had renal failure. He reports that he believes that they told him that his renal function was a creatinine of 3.4 which I thought was his baseline. He has not followed up with his primary care doctor in [place] since he was discharged. He also did not go to see his primary care doctor about this current issue. He thinks that part of the problem is that he does not have access to a shower or bathing facilities on a regular basis. He has had previous infection with removal of testicle previously. He states that was due to infection spreading through his groin but also was waiting more at that time. He has not taken anything for pain. He states that he drinks alcohol least half a pint to a pint of vodka every day. He also smokes a pack of cigarettes a day. Timing/Duration: getting worse (over the last few days) Severity/Quality: moderate Location: scrotal Prior Genitourinary Problems: similar symptoms (several years ago when he had infection and had testicle removed) Sexual [place] History: not active Modifying Factors: Worsens With Movement, Worsens With Palpation Associated Symptoms: No abdominal pain, No diaphoresis, No dysuria, No fever/chills, No loss of bladder control, No lower back pain, No lumps, No mass, No nausea/vomiting, No nocturia, No polyuria; swelling (scrotum); No syncope, No urinary frequency When I spoke to pt he admitted to Left scrotal pain, he was confused though because he was told his problem is on the right. He is a very poor historian and was unsure of exactly what happened last time. He thinks this current problem has developed over past 5 days. Pain is 3 out of 10. Allergies and Home Medications Allergies Coded Allergies: codeine (Verified Allergy, Severe, Anaphylaxis, 04/11/22) Patient Home Medication List Home Medication List Reviewed: Yes Acetaminophen (Tylenol Extra Strength) 500 Mg Tablet, 1,000 MG PO Q8H PRN for PAIN-MILD (1-4), (Reported) Entered as Reported by: ADRIANA WILSON on 05/29/221007 Last Action: Reviewed Ascorbic Acid (Vitamin C) 500 Mg Tablet, 500 MG PO DAILY, (Reported) Entered as Reported by: ADRIANA WLISON on 05/29/221007 Last Action: Reviewed Cholecalciferol (Vitamin D3) (Vitamin D3) 50 Mcg (2000 Unit) Capsule, 50 MCG PO DAILY, (Reported) Entered as Reported by: ADRIANA WILSON on 05/29/221007 Last Action: Reviewed Magnesium Oxide (Magnesium) 400 Mg Magnesium Tablet, 400 MG PO DAILY, (Reported) Entered as Reported by: ADRIANA WILSON on 05/29/221007 Last Action: Reviewed Past Dnexubs-Wlmcdo-Zrhnwc Hx Patient Social History Smoking Status: Current Everyday Smoker (50 pack year history) Recent Hopitalizations: Yes Alcohol Use?: Yes Surgeries History of Surgeries: Yes (laser surgery to prostate 4 yrs ago) Respiratory History of Respiratory Disorde: No Cardiovascular History of Cardiac Disorders: Yes Cardiac Disorders: Chronic Edema/Swelling (pt was told in the past he has CHF) Neurological History of Neurological Disord: No Genitourinary History of Genitourinary Disor: Yes Genitourinary Disorders: Benign Prostatic Hyperpl, Kidney Infection, Renal Failure Gastrointestinal History of Gastrointestinal Di: No Musculoskeletal History of Musculoskeletal Dis: No HEENT History of HEENT Disorders: No Loss of Vision: Denies Hearing Impairment: Denies Cancer History of Cancer: No Integumentary History of Skin or Integumenta: Yes Skin/Integumentary Disorders: Recent Skin Changes (erythema and swelling of left scrotum) Family Medical History Significant Family History: Cancer (mother lung cancer, grandfather renal cancer), Diabetes (in father and grandmother), Other Conditions/Hx (pt denied family hx of AL or stroke) Review of Systems-General Constitutional: No chills, No diaphoresis, No fever EENTM: No hearing loss, No vision loss Respiratory: cough (intermittent); No short of breath Cardiovascular: No chest pain, No palpitations Gastrointestinal: No abdominal pain; diarrhea (pt reports frequent dark watery stools for several months); No nausea, No vomiting Genitourinary: No discharge, No dysuria, No hematuria Skin: see HPI, other (erythema and warmth of left scrotum) Psychiatric/Neurological: Denies Headache, Denies Seizure Physical Exam-General Problems Physical Exam General Appearance: mild distress, obese, other (pt lives in van, infrequent access to bathing) Eyes: Bilateral Eye PERRL, Bilateral Eye EOMI HEENT: pharynx normal; No scleral icterus (R), No scleral icterus (L); other (poor dentition) Neck: non-tender, supple Respiratory: chest non-tender, lungs clear, no respiratory distress, no accessory muscle use, wheezing (very slight expiratory wheeze bl) Cardiovascular: regular rate, rhythm Gastrointestinal: non tender, soft, no organomegaly Rectal: deferred Genital/Rectal: other (swelling, erythema, and warmth on left scrotum with tenderness) Extremities: no calf tenderness, pedal edema (up to mid henao bl, pt reports this is baseline) Neurologic/Psychiatric: alert, oriented x 3; No facial droop Skin: normal color, warm/dry; No diaphoresis; other (left scrotal swelling, redness, and warmth) Lymphatic: no adenopathy (cervical and inguinal) Assessment/Plan Assessment/Plan Assessment/Plan Left scrotal cellulitis with abscess CT revealed fluid collection in left scrotal sac with skin induration concerning for cellulitis, Right Anterior thigh mass This is pt's right testicle, 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 UTI Leukocytosis- 14.1 CHF Renal Failure- creatinine at baseline Alcohol abuse- pt reports a half pint of vodka or a few beers per day S/P left orchiectomy Plan We were consulted involving the scrotal cellulitis and abscess. Pt will need to be made NPO for I&D of left scrotal abscess, continue iv abx and fluids for cellulitis and UTI. Continue to monitor vitals and WBCs. Pt has creatinine of 3.51, pt reports this is baseline according to his ticket broker at [facility]. Discussed with pt; Incision and drainage with possible packing, possible debridement of left scrotum. This has a very low chance of improving without drainage. We went over risks and complications, not limited to pain, bleeding, infection, scar and need for further procedure. All questions answered to his satisfaction. Supervisory-Addendum Brief Verification & Attestation Participated in pt care: history, MDM, physical Personally performed: exam, history, MDM, supervision of care Care discussed with: Medical Student Procedures: n/a Verification and Attestation of Medical Student E/M Service A medical student performed and documented this service. I then reviewed and verified all information documented by the medical student and made modifications to such information, when appropriate. I personally performed a physical exam, medical decision making and then discussed any differences between the notes and made revisions as necessary to create one note. Leona Angel , 05/29/22 , 11:23 JESUS BENNETT May 29, 2022 08:03 LEONA ANGEL DO May 29, 2022 11:18
--- NOTE | 2022-05-29 08:14 | History & Physical-Hospitalist ---
History of Present Illness HPI/Chief Complaint Patient is a 61-year-old male with past medical history of CKD, apparent Marie's gangrene, and recent pyelonephritis who presented to the emergency department due to scrotal pain and swelling. When asked about his history he states "I really have to go through this again?" He does answer some questions but refers me to the history from the emergency room for most things. He presented to the emergency department with pain and swelling in the scrotum. He reported that it has been going on for several days. He states it is different than when he had his previous infection with orchiectomy years ago. He was in the emergency room roughly 6 weeks ago and was transferred to [facility] due to pyelonephritis with possible hemorrhagic cyst. He was told at that visit that he has chronic kidney disease and that his baseline creatinine is around 3.5. He was discharged from there after a couple of days but is homeless and does not have access to shower. He was found to meet sepsis criteria in the emergency department and have possible scrotal abscess so was admitted for further management. Source: patient Date Seen 05/29/22 Time Seen by a Provider: 08:07 Attending Physician Renetta Osborne MD PCP Admitting Physician: Gomez Carreno MD Attending Physician: Gomez Carreno MD Referring Physician Date of Admission May 28, 2022 at 17:05 Home Medications & Allergies Home Medications Reviewed patient Home Medication Reconciliation performed by pharmacy medication reconciliations lay out technician and/or nursing. Patients Allergies have been reviewed. Allergies Allergies Coded Allergies codeine (Verified Allergy, Severe, Anaphylaxis, 04/11/22) Past Yccvxmr-Zjbakn-Xxgmzc Hx Patient Social History Living Status: homeless Employed/Student: unemployed Tobacco Use?: Yes Tobacco type used: Cigarettes Smoking Status: Current Everyday Smoker Smokeless Tobacco Frequency: Former User Use of E-Cig and/or Vaping dev: No Substance use?: No Substance type: Marijuana Additional substance use comme: THC GUMMIES "ENTERTAINING" Substance frequency: Once in a while Alcohol Use?: Yes Alcohol type: Hard Liquor Additional alcohol type: pint of vodka daily Alcohol Frequency: Daily Additional Alcohol Comments: VODKA 0.5 - 1 PINT DAILY Pt feels they are or have been: No Immunizations Up To Date Tetanus Booster (TDap): Unknown Current Status Advance Directives: No Communicates: Signs Primary Language: Hungarian Preferred Spoken Language: Hungarian Is interpretation needed?: No Implanted or Applied Medical D: None Past Medical History Surgeries: 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) Renal Failure Family Medical History Reviewed Nursing Family Hx No Pertinent Family Hx Review of Systems Constitutional: chills; No fever Respiratory: cough (chronic) Cardiovascular: no symptoms reported Gastrointestinal: no symptoms reported Genitourinary: see HPI Musculoskeletal: no symptoms reported Skin: no symptoms reported Psychiatric/Neurological: No Symptoms Reported Physical Exam Physical Exam Vital Signs Vital Signs - First Documented 05/28/22 13:07 Temp 36.4 Pulse 107 Resp 18 B/P (MAP) 147/81 (103) Pulse Ox 100 O2 Delivery Room Air Capillary Refill : Height, Weight, BMI Height: '" Weight: lbs. oz. kg; 34.23 BMI Method: General Appearance: No Apparent Distress, Obese HEENT: PERRL/EOMI, Moist Mucous Membranes; No Scleral Icterus (L), No Scleral Icterus (R) Neck: Normal Inspection, Supple Respiratory: Lungs Clear, No Accessory Muscle Use, No Respiratory Distress Cardiovascular: Regular Rate, Rhythm, No JVD, No Murmur Gastrointestinal: Normal Bowel Sounds, Non Tender, Soft Genital/Rectal: Other (erythema and edema of scrotum noted with erythema spreadong to left groin, no skin breakdown noted) Extremity: Normal Capillary Refill, No Calf Tenderness, No Pedal Edema Neurologic/Psychiatric: Alert, Oriented x3 Skin: Normal Color, Warm/Dry Results Results/Procedures Labs Laboratory Tests 05/28/22 12:55 05/29/22 05:25 Patient resulted labs reviewed. Imaging: Reviewed Imaging Report Imaging [facility] [place], [place] NAME: NICHOLE ZULETA HIEU REC#: [id number] PT STATUS: REG ER : 1960 PHYSICIAN: SONNY DAVID MD ADMIT DATE: 05/28/22/ER FS Signed Date of Exam:05/28/22 US SCROTUM (TESTICLE) [id number] PROCEDURE: US Scrotum. TECHNIQUE: Multiple real-time grayscale images were obtained over the scrotum in various projections bilaterally. INDICATION: Scrotal pain and erythema. Patient status post left orchiectomy. There is nondistended right testicle which is in the inguinal canal. The testicle has normal echogenicity and blood flow. There appears to be scrotal wall thickening. There is a complex mass within the left scrotal sac. It has internal vascularity. This may be herniation of mesenteric fat. IMPRESSION: Undescended right testicle. Suspected left scrotal hernia with herniated mesenteric fat. Further evaluation with CT recommended. Dictated by: Dictated on workstation # [id number] Dict: 05/28/22 1409 Trans: 05/28/221631 CVB [id number] Interpreted by: MILAN AC MD Electronically signed by: MILAN AC MD 05/28/221631 [facility] [place], [place] NAME: NICHOLE ZULETA REC#: [id number] PT STATUS: REG ER : 1960 PHYSICIAN: SONNY DAVID MD ADMIT DATE: 05/28/22/ER FS Signed Date of Exam:05/28/22 CT PELVIS WO PROCEDURE: CT pelvis without contrast. TECHNIQUE: Multiple contiguous axial images were obtained through the pelvis without the use of intravenous contrast. Sagittal and coronal reformations were performed. Auto Exposure Controls were utilized during the CT exam to meet ALARA standards for radiation dose reduction. INDICATION: Scrotal pain. FINDINGS: There are postsurgical changes from left orchiectomy. The right scrotal sac appears to have herniated into the upper anterior thigh. The right testicle appears to be within this hernia. The hernia sac itself is largely fluid filled and measures 14 cm in length and 3.6 cm in diameter. There is also a fatty inguinal hernia extending up from the same defect superiorly in normal fashion. There is a complex lesion in the region of the left scrotal sac measuring 7.4 x 1.3 x 3.9 cm. There appears to be induration of the overlying skin. Differential considerations include hematoma, abscess, and/or neoplasm. IMPRESSION: Large complex right inguinal hernia with extension of the hernia sac into the anterior upper subcutaneous thigh. The testicle has herniated down into the upper thigh. There is a complex fluid collection/mass in the left scrotal sac with surrounding induration of the skin suggesting cellulitis. Differential considerations would include abscess, hematoma, and/or neoplasm. Dictated by: Dictated on workstation # [id number] Dict: 05/28/22 1415 Trans: 05/28/22 1631 [id number] Interpreted by: MILAN AC MD Electronically signed by: MILAN AC MD 05/28/22 1631 Assessment/Plan Admission Diagnosis Sepsis Admission Status: Inpatient Order (span 2 midnights) Reason for Inpatient Admission: see below Assessment and Plan Sepsis- POA Scrotal cellulitis and abscess UTI Tachy with leukocytosis on arrival History of likely nec fasc per patient reports Continue on Vanc and Zosyn Surgery consulted, appreciate recs Await cultures Grew proteus on UA and blood culture in March- on appropriate abx per that c/s CKD Hyperkalemia Creatinine at baseline K back to normal Anemia Hgb 10.2 this AM Macrocytosis noted, consistent with alcohol use Alcohol abuse Tobacco abuse Drinks 1/2 pints-4 beers per day Denies history of withdrawal, denies symptoms at the moment Reports not interested in smoking cessation, has been smoking since 12yo Homeless [employer]er consulted, appreciate help DVT ppx: SCDs until seen by surgery Diagnosis/Problems Diagnosis/Problems (1) Obesity Qualifiers: Obesity type: unspecified obesity type Obesity classification: adult class 1 (BMI 30 - 34.9) Serious obesity comorbidity presence: without serious comorbidity Body mass index: BMI 34.0-34.9 Qualified Codes: E66.9 - Obesity, unspecified; Z68.34 - Body mass index [BMI] 34.0-34.9, adult (2) Tobacco abuse (3) Alcohol abuse (4) Homeless (5) Hyperkalemia (6) Scrotal abscess Status: Acute (7) Chronic renal failure, stage 4 (severe) Status: Acute (8) Sepsis Qualifiers: Sepsis type: sepsis due to unspecified organism Sepsis acute organ dysfunction status: without acute organ dysfunction Qualified Codes: A41.9 - Sepsis, unspecified organism (9) Urinary tract infection Status: Acute Qualifiers: Urinary tract infection type: acute cystitis Hematuria presence: without hematuria Qualified Codes: N30.00 - Acute cystitis without hematuria GOMEZ CARRENO MD May 29, 2022 08:14
[2022-05-29] MEDS ORDERED: HYDROcodone/APAP 5 MG/325 MG (LORTAB) TAB PO PRN (08:15)
[2022-05-29] MEDS ORDERED: LACTATED RINGERS 1,000 ML IV PRN ×2 (10:00→11:30)
[2022-05-29] MEDS ORDERED: CHOL200074 PO (10:08)
[2022-05-29] MEDS ORDERED: MAGN400T39 PO (10:08)
[2022-05-29] MEDS ORDERED: ASCO500T17 PO (10:08)
[2022-05-29] MEDS ORDERED: ACET-2267 PO (10:08)
[2022-05-29] MEDS ORDERED: LIDOCAINE PF 2% 5 ML (XYLOCAINE) VIAL ONE (10:37)
[2022-05-29] MEDS ORDERED: proPOfol 200 MG/20 ML (DIPRIVAN) VIAL IV ONE (10:37)
[2022-05-29] MEDS ORDERED: ONDANSETRON 4 MG/2 ML (SDV) Z0FRAN ONE (10:37)
[2022-05-29] MEDS ORDERED: fentaNYL INJ 100 MCG/2 ML AMP ONE (10:38)
[2022-05-29] MEDS ORDERED: MIDAZOLAM 2 MG/2 ML (VERSED) VIAL ONE (10:38)
[2022-05-29] MEDS ORDERED: BUP/EPI 0.5% 1:200,000 (MARCAINE) 10ML VIAL IJ ONE (11:10)
[2022-05-29] MEDS ORDERED: PHENYLEPHRINE 100 MCG/ML 10 ML (ANESTHESIA) SYR ONE (11:49)
[2022-05-29] MEDS ORDERED: HYDROmorphone 2 MG/ML VIAL (DILAUDID) ONE (11:52)
[2022-05-29] MEDS ORDERED: SEVOFLURANE (ULTANE) 15 ML INHAL SOLN ONE (11:56)
--- NOTE | 2022-05-29 11:58 | Progress Note-Post Operative ---
Post-Operative Progess Note Surgeon (s)/Rn Trauma (s) Surgeon LEONA ANGEL DO Rn Trauma: LAURA Schreiber Pre-Operative Diagnosis Left scrotal abscess Post-Operative Diagnosis same plus necrotic tissue Procedure & Operative Findings Date of Procedure 05/29/22 Procedure Performed/Findings I&D Left scrotal abscess with debridement and packing Anesthesia Type LMA Estimated Blood Loss Estimated blood loss (mL): less than 20ml Specimens/Packing Specimens Removed necrotic tissue abscess culture LEONA ANGEL DO May 29, 2022 11:58
[2022-05-29] MEDS ORDERED: ONDANSETRON 4 MG/2 ML (SDV) Z0FRAN IVP PRN (12:15)
[2022-05-29] MEDS ORDERED: HYDROmorphone 2 MG/ML VIAL (DILAUDID) IV ONE (12:15)
[2022-05-29] MEDS ORDERED: morphine INJ 10 MG/ML 1ML (SYR OR VIAL) IVP ONE (12:15)
--- NOTE | 2022-05-29 15:10 | Anesthesia-General Post-Op ---
General Patient Condition Mental Status/LOC: Same as Preop Cardiovascular: Satisfactory Nausea/Vomiting: Absent Respiratory: Satisfactory Pain: Controlled Complications: Absent Post Op Complications Complications None Follow Up Care/Instructions Patient Instructions None needed. Anesthesia/Patient Condition Patient Condition Patient was seen in PACU awake and doing well, no complaints, stable vital signs, no apparent adverse anesthesia problems. No complications reported per nursing. INÉS LEDESMA DO May 29, 2022 15:10
[2022-05-29] MEDS ORDERED: VANCOMYCIN 1 GM/NS 250 ML IVPB IV SCH ×2 (18:00)
--- NOTE | 2022-05-29 21:00 | OPERATIVE REPORT ---
DATE OF SERVICE: 05/29/2022 PREOPERATIVE DIAGNOSIS: Left scrotal abscess. POSTOPERATIVE DIAGNOSES: Left scrotal abscess, necrotic tissue. PROCEDURES: 1. Incision and drainage with packing. 2. Debridement of necrotic tissue. SURGEON: Wan Angel DO FISH CULTURIST: KAMRYN Urrutia. ANESTHESIA: LMA. BLOOD LOSS: Less than 20 mL. FLUIDS: Per anesthesia. POSTOPERATIVE CONDITION: Stable. SPECIMEN: 1. Necrotic tissue. 2. Abscess culture. INDICATION FOR PROCEDURE: The patient is a 61-year-old male who presents with scrotal inflammation, cellulitis. 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 FINDINGS: The patient had large amount at least 200 mL of purulent fluid and he had some necrotic tissue. PROCEDURE NOTE: After informed consent was obtained, the patient was brought to the operating room, placed on the table in supine position. Both sides frog legged. He was then sterilely prepped and draped in normal fashion. I made an incision along the left scrotal area. Site had been marked previously, immediately got out purulent fluid, foul smelling. Cultures obtained, opened this further and then copiously flushed with saline. There was some debrided necrotic tissue, measured about 1.5 x 2 cm long with Bovie electrocautery, passed this off the table. There was some minimal amount of necrotic tissue, cauterized this, irrigated more, obtained hemostasis using Bovie electrocautery and elected to pack with 1-inch iodoform packing, packed the entire bottle into this area. It went up towards the superiorly a little bit and then across also but did not go all the way up to the thigh, packed this and then area was cleaned and dried and a pressure dressing placed. The patient tolerated the procedure. Sponge, instrument and needle count correct at the end of the case. Job ID: [id number] DocumentID: [id number] Dictated Date: 05/29/2022 12:09:01 Educator Senior Clinical Date: 05/29/2022 20:59:57 Dictated By: WAN ANGEL DO [facility]
[2022-05-30] MEDS: PIPERACILLIN SODIUM/TAZOBACTAM 4.5 GM in NS (IVPB) 100 ML IV SCH ×3 (00:18→23:45)
[2022-05-30 03:20] VITALS: BP 126/78
[2022-05-30] MEDS: LACTATED RINGERS 1,000 ML IV SCH ×2 (03:26→14:29)
[2022-05-30 06:21] LABS: BASOPHILS # (AUTO) 0.1 10^3/uL (0.0-0.1); BASOPHILS % (AUTO) 1 % (0-10); EOSINOPHILS # (AUTO) 0.1 10^3/uL (0.0-0.3); EOSINOPHILS % (AUTO) 1 % (0-10); HEMATOCRIT 32 % (40-54); HEMOGLOBIN 10.7 g/dL (13.3-17.7); LYMPHOCYTES # (AUTO) 0.9 10^3/uL (1.0-4.0); LYMPHOCYTES % (AUTO) 9 % (12-44); MEAN CORPUSCULAR HEMOGLOBIN 36 pg (25-34); MEAN CORPUSCULAR HGB CONC 33 g/dL (32-36); MEAN CORPUSCULAR VOLUME 109 fL (80-99); MEAN PLATELET VOLUME 10.6 fL (9.0-12.2); MONOCYTES # (AUTO) 0.8 10^3/uL (0.0-1.0); MONOCYTES % (AUTO) 7 % (0-12); NEUTROPHILS # (AUTO) 8.8 10^3/uL (1.8-7.8); NEUTROPHILS % (AUTO) 81 % (42-75); PLATELET COUNT 165 10^3/uL (130-400); WHITE BLOOD COUNT 10.9 10^3/uL (4.3-11.0)
[2022-05-30 06:42] LABS: ALBUMIN 2.7 GM/DL (3.2-4.5); BILIRUBIN,TOTAL 0.3 MG/DL (0.1-1.0); CALCIUM 8.1 MG/DL (8.5-10.1); CREATININE SERUM 4.02 MG/DL (0.60-1.30); POTASSIUM 4.5 MMOL/L (3.6-5.0)
--- NOTE | 2022-05-30 06:55 | Progress Note - Surgery ---
JESUS BENNETT 05/30/22 0655: Subjective Date Seen by a Provider: May 30, 2022 Time Seen by a Provider: 06:31 Subjective/Events-last exam Pt is lying in bed comfortably watching tv. He reports 4/10 soreness in his scrotum. Requesting pain medication. Pt has noticed blood on his wound packing and bandages, but denies any more drainage of pus since last night. Pt is able to ambulate to bathroom and reports tenderness when sliding over to the side of the bed. Pt reports tolerating normal diet well, denies N/V. Had a loose BM around 5 AM. Pt denies any dysuria or hematuria. Wound is open with packing in place. Packing is red from blood but is not covered in purulent fluid. Some of the packing has fallen out of the wound. Nurse reports changing padded bandage and denies any purulent drainage. Pt denies any fever or chills overnight. Review of Systems General: No Chills, No Night Sweats HEENT: No Head Aches, No Visual Changes Pulmonary: No Dyspnea, No Cough Cardiovascular: No: Chest Pain, Lt Headedness Gastrointestinal: No: Nausea, Vomiting Genitourinary: No Dysuria, No Hematuria Neurological: No: Change in speech, Confusion Focused Exam Lactate Level 05/28/22 12:55: Lactic Acid Level 1.98 Objective Exam Vital Signs Date Time Temp Pulse Resp B/P (MAP) Pulse Ox O2 Delivery O2 Flow Rate FiO2 05/30/22 03:20 37.0 91 18 126/78 (94) 98 Room Air 05/29/22 23:06 36.6 94 18 91/53 (66) 95 Room Air 05/29/22 20:00 37.1 96 20 102/60 (74) 100 Room Air 05/29/22 19:46 Room Air 05/29/22 17:30 36.6 90 20 123/60 (81) 98 Room Air 3.00 05/29/22 15:48 36.6 90 20 123/60 (81) 98 Room Air 05/29/22 13:33 36.4 93 18 107/70 (82) 97 Room Air 05/29/22 12:50 36.8 20 117/73 (88) 100 Room Air 05/29/22 12:50 Room Air 05/29/22 12:45 Room Air 05/29/22 12:40 20 115/74 (88) 100 Room Air 05/29/22 12:30 20 118/74 (89) 99 Room Air 05/29/22 12:30 Room Air 05/29/22 12:20 20 118/74 (89) 99 Room Air 05/29/22 12:15 Room Air 05/29/22 12:10 20 104/57 (73) 100 OxyMask 3.00 05/29/22 12:06 36.8 20 92/69 (77) 100 OxyMask 4.00 05/29/22 12:06 OxyMask 4.00 05/29/22 08:31 36.8 109 18 123/62 (82) 99 Room Air 05/29/22 07:57 96 Room Air I & O 05/30/22 07:00 Intake Total 742 ml Output Total 1975 ml Balance -1233 ml Capillary Refill : Less Than 3 Seconds General Appearance: No Apparent Distress, Obese HEENT: PERRL/EOMI, Moist Mucous Membranes; No Scleral Icterus (L), No Scleral Icterus (R) Neck: Normal Inspection, Supple Respiratory: Chest Non Tender, Lungs Clear, No Accessory Muscle Use, No Respiratory Distress Cardiovascular: Regular Rate, Rhythm, No Murmur Peripheral Pulses: 2+ Radial Pulses (R), 2+ Radial Pulses (L) Gastrointestinal: non tender, soft Extremity: No Calf Tenderness, No Pedal Edema Neurologic/Psychiatric: Alert, Oriented x3; No Facial Droop Skin: Normal Color, Warm/Dry, Other (scrotal incision is packed and reveals some bright red blood on dressing and underwear. Pt reports decreased pain on palpation from yesterday) Lymphatic: No Adenopathy (cervical or inguinal) Results Lab Laboratory Tests 05/30/22 05:15: White Blood Count 10.9, Red Blood Count 2.95L, Hemoglobin 10.7L, Hematocrit 32L, Mean Corpuscular Volume 109H, Mean Corpuscular Hemoglobin 36H, Mean Corpuscular Hemoglobin Concent 33, Red Cell Distribution Width 14.4, Platelet Count 165, Mean Platelet Volume 10.6, Immature Granulocyte % (Auto) 2, Neutrophils (%) (Auto) 81H, Lymphocytes (%) (Auto) 9L, Monocytes (%) (Auto) 7, Eosinophils (%) (Auto) 1, Basophils (%) (Auto) 1, Neutrophils # (Auto) 8.8H, Lymphocytes # (Auto) 0.9L, Monocytes # (Auto) 0.8, Eosinophils # (Auto) 0.1, Basophils # (Auto) 0.1, Immature Granulocyte # (Auto) 0.2H, Sodium Level 140, Potassium Level 4.5, Anion Gap 10, Blood Urea Nitrogen 46H, Estimat Glomerular Filtration Rate 16, BUN/Creatinine Ratio 11, Glucose Level 95, Calcium Level 8.1L, Corrected Calcium 9.1, Total Bilirubin 0.3, Aspartate Amino Transf (AST/SGOT) 17, Alanine Aminotransferase (ALT/SGPT) 14, Alkaline Phosphatase 67, Total Protein 6.0L, Albumin 2.7L Microbiology 05/29/22 Gram Stain, Resulted Pending 05/29/22 Anaerobic Culture, Resulted Pending 05/29/22 Surgical Culture - Preliminary, Resulted 05/28/22 Blood Culture - Preliminary, Resulted No growth Assessment/Plan Assessment/Plan Assessment/Plan Left scrotal cellulitis with abscess CT revealed fluid collection in left scrotal sac with skin induration concerning for cellulitis, POD1 from I&D Right 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 UTI Leukocytosis- down to 10.9 today from 14.1 CHF Renal Failure- creatinine at baseline Alcohol abuse- pt reports a half pint of vodka or a few beers per day S/P left orchiectomy Plan We were consulted involving the scrotal cellulitis and abscess. POD1 from I&D, wound is open with packing and bandage revealing drainage of blood with no purulence. Pt reports improving pain but requests pain medication. Continue iv abx and fluids for cellulitis and UTI, awaiting cultures from abscess fluid. Continue to monitor vitals and WBCs. Pt should continue to ambulate as tolerated. Pt has creatinine of 3.51, pt reports this is baseline according to his principal electrical engineer at [facility]. WAN ELIAS DO 05/30/22 1341: Subjective Time Seen by a Provider: 12:28 Subjective/Events-last exam Pt seen and examined, no new complaints; scrotal pain is tolerable. Review of Systems General: No Chills, No Night Sweats Pulmonary: No Dyspnea, No Cough Cardiovascular: No: Chest Pain Gastrointestinal: No: Nausea, Vomiting Genitourinary: No Dysuria Objective Exam General Appearance: No Apparent Distress, Obese HEENT: Moist Mucous Membranes; No Scleral Icterus (L), No Scleral Icterus (R) Respiratory: Chest Non Tender, Lungs Clear, Normal Breath Sounds, No Accessory Muscle Use, No Respiratory Distress Cardiovascular: Regular Rate, Rhythm, No Murmur Gastrointestinal: non tender, soft Extremity: No Calf Tenderness, No Pedal Edema Neurologic/Psychiatric: Alert, Oriented x3 Skin: Other (scrotal incision is packed and reveals some bright red blood on dressing and underwear. Pt reports decreased pain on palpation from yesterday) Assessment/Plan Assessment/Plan Assessment/Plan S/P I&D for Left scrotal abscess - POD1 Right 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 UTI Leukocytosis- down to 10.9 today from 14.1 CHF Renal Failure- creatinine at baseline Alcohol abuse- pt reports a half pint of vodka or a few beers per day S/P left orchiectomy Plan POD1 from I&D, wound is open with packing; plan to change packing tomorrow. Pt reports improving pain but requests pain medication. Continue iv abx and fluids for cellulitis and UTI, awaiting cultures from abscess fluid. Continue to monitor vitals and WBCs. Pt should continue to ambulate as tolerated. Pt has creatinine of 3.51, pt reports this is baseline according to his principal electrical engineer at [facility]. Supervisory-Addendum Brief Verification & Attestation Participated in pt care: history, MDM, physical Personally performed: exam, history, MDM, supervision of care Care discussed with: Medical Student Procedures: n/a Verification and Attestation of Medical Student E/M Service A medical student performed and documented this service. I then reviewed and verified all information documented by the medical student and made modifications to such information, when appropriate. I personally performed a physical exam, medical decision making and then discussed any differences between the notes and made revisions as necessary to create one note. Wan Elias , 05/30/22 , 13:41 JESUS BENNETT May 30, 2022 06:55 WAN ELIAS DO May 30, 2022 13:41
--- NOTE | 2022-05-30 07:50 | Anesthesia-General Post-Op ---
General Patient Condition Mental Status/LOC: Same as Preop Cardiovascular: Satisfactory Nausea/Vomiting: Absent Respiratory: Satisfactory Pain: Controlled Complications: Absent Post Op Complications Complications None Follow Up Care/Instructions Patient Instructions None needed. Anesthesia/Patient Condition Patient Condition Patient is doing well, no complaints, stable vital signs, no apparent adverse anesthesia problems. No complications reported per nursing. KATTY CHOW CRNA May 30, 2022 07:50
[2022-05-30 07:53] VITALS: BP 112/63
--- NOTE | 2022-05-30 09:33 | Progress Note - Hospitalist ---
Subjective HPI/CC On Admission Date Seen by Provider: May 30, 2022 Patient is a 61-year-old male with past medical history of CKD, apparent Keya's gangrene, and recent pyelonephritis who presented to the emergency department due to scrotal pain and swelling. When asked about his history he states "I really have to go through this again?" He does answer some questions but refers me to the history from the emergency room for most things. He presented to the emergency department with pain and swelling in the scrotum. He reported that it has been going on for several days. He states it is different than when he had his previous infection with orchiectomy years ago. He was in the emergency room roughly 6 weeks ago and was transferred to [facility] due to pyelonephritis with possible hemorrhagic cyst. He was told at that visit that he has chronic kidney disease and that his baseline creatinine is around 3.5. He was discharged from there after a couple of days but is homeless and does not have access to shower. He was found to meet sepsis criteria in the emergency department and have possible scrotal abscess so was admitted for further management. Subjective/Events-last exam Pt reports doing well. No complaints. Creatinine up today. Does not follow with nephrology. Focused Exam Lactate Level 05/28/22 12:55: Lactic Acid Level 1.98 Objective Exam Vital Signs Vital Signs Date Time Temp Pulse Resp B/P (MAP) Pulse Ox O2 Delivery O2 Flow Rate FiO2 05/30/22 08:00 96 Room Air 05/30/22 07:53 36.6 86 18 112/63 (79) 05/29/22 17:30 3.00 Capillary Refill : Less Than 3 Seconds General Appearance: No Apparent Distress, Chronically ill, Obese Respiratory: Lungs Clear, No Respiratory Distress Cardiovascular: Regular Rate, Rhythm, No Murmur Gastrointestinal: Normal Bowel Sounds, Soft Neurologic/Psychiatric: Alert, Oriented x3 Results/Procedures Lab Laboratory Tests 05/30/22 05:15 Patient resulted labs reviewed. Imaging: Reviewed Imaging Report Assessment/Plan Assessment and Plan Assess & Plan/Chief Complaint Sepsis- POA Scrotal cellulitis and abscess UTI Leukocytosis improving Continue MELVIN Cespedes Vanc Surgery consulted, appreciate recs s/p I&D and debridement yesterday Await cultures from urine and wound CKD Hyperkalemia Creatinine up slightly today Will discuss with Nephrology K normal Anemia Hgb stable Macrocytosis noted, consistent with alcohol use Alcohol abuse Tobacco abuse Drinks 1/2 pints-4 beers per day Denies history of withdrawal, denies symptoms at the moment Reports not interested in smoking cessation, has been smoking since 12yo Homeless Electrical Tryout Person consulted, appreciate help DVT ppx: heparin Diagnosis/Problems Diagnosis/Problems (1) Obesity Qualifiers: Obesity type: unspecified obesity type Obesity classification: adult class 1 (BMI 30 - 34.9) Serious obesity comorbidity presence: without serious comorbidity Body mass index: BMI 34.0-34.9 Qualified Codes: E66.9 - Obesity, unspecified; Z68.34 - Body mass index [BMI] 34.0-34.9, adult (2) Tobacco abuse (3) Alcohol abuse (4) Homeless (5) Hyperkalemia (6) Scrotal abscess Status: Acute (7) Chronic renal failure, stage 4 (severe) Status: Acute (8) Sepsis Qualifiers: Sepsis type: sepsis due to unspecified organism Sepsis acute organ dysfunction status: without acute organ dysfunction Qualified Codes: A41.9 - Sepsis, unspecified organism (9) Urinary tract infection Status: Acute Qualifiers: Urinary tract infection type: acute cystitis Hematuria presence: without hematuria Qualified Codes: N30.00 - Acute cystitis without hematuria GOMEZ LEYVA MD May 30, 2022 09:32
[2022-05-30 11:30] VITALS: BP 118/73
[2022-05-30 15:14] VITALS: BP 115/68
[2022-05-30] MEDS ORDERED: TROUGH ORDER-PHARMACY XX NR (17:00)
[2022-05-30 17:12] VITALS: BP 115/68
[2022-05-30 19:07] VITALS: BP 144/77
[2022-05-31] VITALS (7 sets, daily range): BP systolic 136–164; BP diastolic 71–96
[2022-05-31] MEDS: MELATONIN 3 MG TABLET PO PRN ×2 (01:20→22:17)
[2022-05-31 05:53] LABS: BASOPHILS # (AUTO) 0.1 10^3/uL (0.0-0.1); BASOPHILS % (AUTO) 1 % (0-10); EOSINOPHILS # (AUTO) 0.2 10^3/uL (0.0-0.3); EOSINOPHILS % (AUTO) 2 % (0-10); HEMATOCRIT 33 % (40-54); HEMOGLOBIN 10.7 g/dL (13.3-17.7); LYMPHOCYTES % (AUTO) 12 % (12-44); MEAN CORPUSCULAR HEMOGLOBIN 35 pg (25-34); MEAN CORPUSCULAR HGB CONC 33 g/dL (32-36); MEAN CORPUSCULAR VOLUME 108 fL (80-99); MEAN PLATELET VOLUME 10.5 fL (9.0-12.2); MONOCYTES # (AUTO) 0.9 10^3/uL (0.0-1.0); MONOCYTES % (AUTO) 10 % (0-12); NEUTROPHILS # (AUTO) 5.9 10^3/uL (1.8-7.8); NEUTROPHILS % (AUTO) 70 % (42-75); PLATELET COUNT 189 10^3/uL (130-400); WHITE BLOOD COUNT 8.4 10^3/uL (4.3-11.0)
[2022-05-31 06:14] LABS: ALBUMIN 2.7 GM/DL (3.2-4.5); BILIRUBIN,TOTAL 0.2 MG/DL (0.1-1.0); CALCIUM 8.2 MG/DL (8.5-10.1); CREATININE SERUM 3.85 MG/DL (0.60-1.30); TOTAL PROTEIN 6.5 GM/DL (6.4-8.2)
--- NOTE | 2022-05-31 07:35 | Progress Note - Surgery ---
DONALDJESUS 05/31/22 0735: Subjective Date Seen by a Provider: May 31, 2022 Subjective/Events-last exam POD2 from I&D of scrotal abscess. Pt is lying in bed comfortably. He reports 2/10 soreness in scrotum improved from yesterday. Pt notes blood on packing and bandages but no purulent discharge. Pt tolerating normal diet and reports no N/V. Able to ambulate without issue. Voiding and BM are normal. Incision is open, some packing has fallen out due to pt ambulation. Packing has a brown and red color. No blood or purulent fluid present on exam. Review of Systems General: No Chills, No Night Sweats HEENT: No Head Aches, No Visual Changes Pulmonary: No Dyspnea, No Cough Cardiovascular: No: Chest Pain, Lt Headedness Gastrointestinal: No: Nausea, Vomiting Genitourinary: No Dysuria, No Hematuria; Other (2/10 scrotal soreness, improved from yesterday) Neurological: No: Change in speech, Confusion Focused Exam Lactate Level 05/28/22 12:55: Lactic Acid Level 1.98 Objective Exam Vital Signs Date Time Temp Pulse Resp B/P (MAP) Pulse Ox O2 Delivery O2 Flow Rate FiO2 05/31/22 04:06 37.2 87 20 136/81 (99) 95 Room Air 05/31/22 00:06 36.9 91 20 152/87 (108) 100 Room Air 05/30/22 20:30 95 Room Air 05/30/22 19:07 36.5 81 20 144/77 (99) 100 Room Air 05/30/22 17:12 36.8 87 20 115/68 (84) 97 Room Air 05/30/22 15:14 36.8 87 20 115/68 (84) 97 Room Air 05/30/22 11:30 36.6 108 18 118/73 (88) 96 Room Air 05/30/22 08:00 96 Room Air 05/30/22 07:53 36.6 86 18 112/63 (79) 96 Room Air I & O 05/31/22 07:00 Intake Total 2090 ml Output Total 1600 ml Balance 490 ml Capillary Refill : Less Than 3 Seconds General Appearance: No Apparent Distress, Obese HEENT: PERRL/EOMI, Moist Mucous Membranes; No Scleral Icterus (L), No Scleral Icterus (R) Neck: Normal Inspection, Supple Respiratory: Chest Non Tender, Lungs Clear, Normal Breath Sounds, No Accessory Muscle Use, No Respiratory Distress Cardiovascular: Regular Rate, Rhythm, No Murmur Peripheral Pulses: 2+ Radial Pulses (R), 2+ Radial Pulses (L) Gastrointestinal: non tender, soft Extremity: No Calf Tenderness, No Pedal Edema Neurologic/Psychiatric: Alert, Oriented x3 Skin: Other (scrotal incision is packed and reveals some dried blood on dressing and underwear.) Lymphatic: No Adenopathy (cervical or inguinal) Results Lab Laboratory Tests 05/31/22 05:13: White Blood Count 8.4, Red Blood Count 3.03L, Hemoglobin 10.7L, Hematocrit 33L, Mean Corpuscular Volume 108H, Mean Corpuscular Hemoglobin 35H, Mean Corpuscular Hemoglobin Concent 33, Red Cell Distribution Width 14.3, Platelet Count 189, Mean Platelet Volume 10.5, Immature Granulocyte % (Auto) 5, Neutrophils (%) (Auto) 70, Lymphocytes (%) (Auto) 12, Monocytes (%) (Auto) 10, Eosinophils (%) (Auto) 2, Basophils (%) (Auto) 1, Neutrophils # (Auto) 5.9, Lymphocytes # (Auto) 1.0, Monocytes # (Auto) 0.9, Eosinophils # (Auto) 0.2, Basophils # (Auto) 0.1, Immature Granulocyte # (Auto) 0.4H, Sodium Level 142, Potassium Level 5.0, Chloride Level 119H, Carbon Dioxide Level 13L, Anion Gap 10, Blood Urea Nitrogen 41H, Creatinine 3.85H, Estimat Glomerular Filtration Rate 17, BUN/Creatinine Ratio 11, Glucose Level 87, Calcium Level 8.2L, Corrected Calcium 9.2, Total Bilirubin 0.2, Aspartate Amino Transf (AST/SGOT) 17, Alanine Aminotransferase (ALT/SGPT) 17, Alkaline Phosphatase 58, Total Protein 6.5, Albumin 2.7L Microbiology 05/29/22 MRSA Screen - Final, Complete MRSA not isolated 05/29/22 Gram Stain - Final, Resulted 05/29/22 Anaerobic Culture, Resulted Pending 05/29/22 Surgical Culture - Preliminary, Resulted No growth 05/28/22 Urine Culture - Preliminary, Resulted Gram Negative Eron 05/28/22 Blood Culture - Preliminary, Resulted No growth Assessment/Plan Assessment/Plan Assessment/Plan S/P I&D for Left scrotal abscess - POD2 Right 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 UTI- gram negative eron on clean catch Leukocytosis- down to 8.4 today from 14.1 on 05/29 CHF Renal Failure- creatinine at baseline Alcohol abuse- pt reports a half pint of vodka or a few beers per day S/P left orchiectomy Plan POD2 from I&D, wound is open with packing; plan to change packing today, consider wound care consultation for management of packing and bandages. Continue iv abx and fluids for cellulitis and UTI. Surgical culture preliminary revealed no growth, awaiting anaerobic culture. Blood cultures revealed no growth. Continue to monitor vitals and WBCs. Pt should continue to ambulate as tolerated. Pt has creatinine of 3.85, pt reports this is baseline. LEONA ELIAS DO 05/31/22 1241: Subjective Time Seen by a Provider: 08:39 Subjective/Events-last exam Pt seen and examined, no complaints today. 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 UTI- gram negative eron on clean catch Leukocytosis- down to 8.4 today from 14.1 on 05/29 CHF Renal Failure- creatinine at baseline Alcohol abuse- pt reports a half pint of vodka or a few beers per day S/P left orchiectomy Plan POD2 from I&D, wound is open with packing; plan to change packing today, consider wound care consultation for management of packing and bandages. Continue iv abx and fluids for cellulitis and UTI. Surgical culture preliminary revealed no growth, awaiting anaerobic culture. Blood cultures revealed no growth. Continue to monitor vitals and WBCs. Pt should continue to ambulate as tolerated. Pt has creatinine of 3.85, pt reports this is baseline. Supervisory-Addendum Brief Verification & Attestation Participated in pt care: history, MDM, physical Personally performed: exam, history, MDM, supervision of care Care discussed with: Medical Student Procedures: n/a Verification and Attestation of Medical Student E/M Service A medical student performed and documented this service. I then reviewed and verified all information documented by the medical student and made modifications to such information, when appropriate. I personally performed a physical exam, medical decision making and then discussed any differences between the notes and made revisions as necessary to create one note. Leona Elias , 05/31/22 , 12:41 JESUS BENNETT May 31, 2022 07:35 LEONA ELIAS DO May 31, 2022 12:41
[2022-05-31] MEDS: PIPERACILLIN SODIUM/TAZOBACTAM 4.5 GM in NS (IVPB) 100 ML IV SCH ×2 (10:53→22:17)
[2022-05-31] MEDS ORDERED: HYPOCHLOROUS ACID/NaCl (VASHE) 250 ML IR PRN (11:15)
--- NOTE | 2022-05-31 13:36 | Progress Note - Hospitalist ---
Subjective HPI/CC On Admission Date Seen by Provider: May 31, 2022 Patient is a 61-year-old male with past medical history of CKD, apparent Keya's gangrene, and recent pyelonephritis who presented to the emergency department due to scrotal pain and swelling. When asked about his history he states "I really have to go through this again?" He does answer some questions but refers me to the history from the emergency room for most things. He presented to the emergency department with pain and swelling in the scrotum. He reported that it has been going on for several days. He states it is different than when he had his previous infection with orchiectomy years ago. He was in the emergency room roughly 6 weeks ago and was transferred to [facility] due to pyelonephritis with possible hemorrhagic cyst. He was told at that visit that he has chronic kidney disease and that his baseline creatinine is around 3.5. He was discharged from there after a couple of days but is homeless and does not have access to shower. He was found to meet sepsis criteria in the emergency department and have possible scrotal abscess so was admitted for further management. Subjective/Events-last exam Pt reports doing well. No complaints. Objective Exam Vital Signs Vital Signs Date Time Temp Pulse Resp B/P (MAP) Pulse Ox O2 Delivery O2 Flow Rate FiO2 05/31/22 11:35 36.9 85 18 154/83 (106) 100 Room Air 05/31/22 08:24 0.00 Capillary Refill : Less Than 3 Seconds General Appearance: No Apparent Distress, Obese Respiratory: Lungs Clear, No Respiratory Distress Cardiovascular: Regular Rate, Rhythm Neurologic/Psychiatric: Alert, Oriented x3 Results/Procedures Lab Laboratory Tests 05/31/22 05:13 Patient resulted labs reviewed. Imaging: Reviewed Imaging Report Assessment/Plan Assessment and Plan Assess & Plan/Chief Complaint Sepsis- POA Scrotal cellulitis and abscess UTI Continue Zosyn, awaiting cultures Surgery consulted, appreciate recs s/p I&D and debridement yesterday Will discuss plans for wound care with social work as patient states coming back to [facility] would not be feasible CKD Hyperkalemia Creatinine around baseline Nephrology was not in house yesterday, will recommended outpatient follow up as creatinine improved Anemia Hgb stable Macrocytosis noted, consistent with alcohol use Alcohol abuse Tobacco abuse Drinks 1/2 pints-4 beers per day Denies history of withdrawal, denies symptoms at the moment Reports not interested in smoking cessation, has been smoking since 12yo Homeless Agency Sales Representative consulted, appreciate help DVT ppx: heparin Diagnosis/Problems Diagnosis/Problems (1) Obesity Qualifiers: Obesity type: unspecified obesity type Obesity classification: adult class 1 (BMI 30 - 34.9) Serious obesity comorbidity presence: without serious comorbidity Body mass index: BMI 34.0-34.9 Qualified Codes: E66.9 - Obesity, unspecified; Z68.34 - Body mass index [BMI] 34.0-34.9, adult (2) Tobacco abuse (3) Alcohol abuse (4) Homeless (5) Hyperkalemia (6) Scrotal abscess Status: Acute (7) Chronic renal failure, stage 4 (severe) Status: Acute (8) Sepsis Qualifiers: Sepsis type: sepsis due to unspecified organism Sepsis acute organ dysfunction status: without acute organ dysfunction Qualified Codes: A41.9 - Sepsis, unspecified organism (9) Urinary tract infection Status: Acute Qualifiers: Urinary tract infection type: acute cystitis Hematuria presence: without hematuria Qualified Codes: N30.00 - Acute cystitis without hematuria GOMEZ LEYVA MD May 31, 2022 13:36
[2022-05-31] MEDS: LACTATED RINGERS 1,000 ML IV SCH (16:27)
[2022-06-01 04:48] VITALS: BP 145/87
[2022-06-01 05:42] LABS: BASOPHILS # (AUTO) 0.1 10^3/uL (0.0-0.1); BASOPHILS % (AUTO) 1 % (0-10); EOSINOPHILS # (AUTO) 0.3 10^3/uL (0.0-0.3); EOSINOPHILS % (AUTO) 3 % (0-10); HEMATOCRIT 30 % (40-54); HEMOGLOBIN 9.8 g/dL (13.3-17.7); LYMPHOCYTES # (AUTO) 1.3 10^3/uL (1.0-4.0); LYMPHOCYTES % (AUTO) 14 % (12-44); MEAN CORPUSCULAR HEMOGLOBIN 35 pg (25-34); MEAN CORPUSCULAR HGB CONC 33 g/dL (32-36); MEAN CORPUSCULAR VOLUME 108 fL (80-99); MEAN PLATELET VOLUME 10.2 fL (9.0-12.2); MONOCYTES # (AUTO) 0.9 10^3/uL (0.0-1.0); MONOCYTES % (AUTO) 10 % (0-12); NEUTROPHILS # (AUTO) 6.1 10^3/uL (1.8-7.8); NEUTROPHILS % (AUTO) 65 % (42-75); PLATELET COUNT 212 10^3/uL (130-400); WHITE BLOOD COUNT 9.4 10^3/uL (4.3-11.0)
[2022-06-01 05:58] LABS: ALBUMIN 2.7 GM/DL (3.2-4.5)
[2022-06-01 05:59] LABS: POTASSIUM 4.9 MMOL/L (3.6-5.0)
[2022-06-01 06:00] LABS: CALCIUM 7.9 MG/DL (8.5-10.1)
[2022-06-01 06:01] LABS: TOTAL PROTEIN 6.1 GM/DL (6.4-8.2)
[2022-06-01 06:03] LABS: BILIRUBIN,TOTAL 0.2 MG/DL (0.1-1.0)
[2022-06-01 06:05] LABS: CREATININE SERUM 3.57 MG/DL (0.60-1.30)
[2022-06-01 07:40] VITALS: BP 133/82
--- NOTE | 2022-06-01 07:59 | Progress Note - Surgery ---
JESUS BENNETT 06/01/22 0759: Subjective Date Seen by a Provider: Jun 01, 2022 Subjective/Events-last exam Pt is lying in bed comfortably on exam. Pt reports no concerns today. 0/10 pain in scrotum. Denies any fever or chills overnight. Pt is able to ambulate and is tolerating diet. Pt denies dysuria and hematuria. Wound care packed incision and covered with bandage 05/31 in the afternoon. Bandage is in place and clean. WBC 9.4 today, no fever. Review of Systems General: No Chills, No Night Sweats HEENT: Head Aches (pt reports headache last night now resolved) Pulmonary: No Dyspnea, No Cough Cardiovascular: No: Chest Pain, Lt Headedness Gastrointestinal: No: Nausea, Vomiting Genitourinary: No Dysuria, No Hematuria Neurological: No: Change in speech, Confusion Objective Exam Vital Signs Date Time Temp Pulse Resp B/P (MAP) Pulse Ox O2 Delivery O2 Flow Rate FiO2 06/01/22 07:40 36.6 85 18 133/82 (99) 96 Room Air 06/01/22 04:48 36.6 92 20 145/87 (106) 97 Room Air 05/31/22 23:31 36.3 88 18 140/96 (111) 98 Room Air 05/31/22 20:20 98 Room Air 05/31/22 19:50 36.7 77 21 164/87 (112) 100 Room Air 05/31/22 15:30 36.5 69 21 152/71 (98) 100 Room Air 05/31/22 11:35 36.9 85 18 154/83 (106) 100 Room Air 05/31/22 08:24 Room Air 0.00 05/31/22 08:00 100 Room Air I & O 06/01/22 07:00 Intake Total 1520 ml Output Total 950 ml Balance 570 ml Capillary Refill : Less Than 3 Seconds General Appearance: No Apparent Distress, Obese HEENT: PERRL/EOMI, Moist Mucous Membranes; No Scleral Icterus (L), No Scleral Icterus (R) Neck: Normal Inspection, Supple Respiratory: Lungs Clear, No Respiratory Distress Cardiovascular: Regular Rate, Rhythm, Normal Peripheral Pulses Peripheral Pulses: 2+ Radial Pulses (R), 2+ Radial Pulses (L) Gastrointestinal: non tender, soft Extremity: No Calf Tenderness, No Pedal Edema Neurologic/Psychiatric: Alert, Oriented x3 Skin: Other (scrotal incision good granulation, no necrotic tissue seen, packed and covered 05/31 from bandage by wound care) Lymphatic: No Adenopathy (cervical or inguinal) Results Lab Laboratory Tests 06/01/22 05:36: White Blood Count 9.4, Red Blood Count 2.78L, Hemoglobin 9.8L, Hematocrit 30L, Mean Corpuscular Volume 108H, Mean Corpuscular Hemoglobin 35H, Mean Corpuscular Hemoglobin Concent 33, Red Cell Distribution Width 13.9, Platelet Count 212, Mean Platelet Volume 10.2, Immature Granulocyte % (Auto) 8, Neutrophils (%) (Auto) 65, Lymphocytes (%) (Auto) 14, Monocytes (%) (Auto) 10, Eosinophils (%) (Auto) 3, Basophils (%) (Auto) 1, Neutrophils # (Auto) 6.1, Lymphocytes # (Auto) 1.3, Monocytes # (Auto) 0.9, Eosinophils # (Auto) 0.3, Basophils # (Auto) 0.1, Immature Granulocyte # (Auto) 0.7H, Sodium Level 142, Potassium Level 4.9, Chloride Level 121H, Carbon Dioxide Level 13L, Anion Gap 8, Blood Urea Nitrogen 35H, Creatinine 3.57H, Estimat Glomerular Filtration Rate 18, BUN/Creatinine Ratio 10, Glucose Level 96, Calcium Level 7.9L, Corrected Calcium 8.9, Total Bilirubin 0.2, Aspartate Amino Transf (AST/SGOT) 19, Alanine Aminotransferase (ALT/SGPT) 16, Alkaline Phosphatase 50, Total Protein 6.1L, Albumin 2.7L Microbiology 05/29/22 MRSA Screen - Final, Complete MRSA not isolated 05/29/22 Gram Stain - Final, Resulted 05/29/22 Anaerobic Culture - Preliminary, Resulted Slight Growth Present 05/29/22 Surgical Culture - Preliminary, Resulted No growth 05/28/22 Urine Culture - Final, Complete 3 or more isolates Gram Negative Eron 05/28/22 Blood Culture - Preliminary, Resulted No growth Assessment/Plan Assessment/Plan Assessment/Plan S/P I&D for Left scrotal abscess - POD3 Right 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 UTI- gram negative eron on clean catch Leukocytosis- down to 9.4 today from 14.1 on 05/29 CHF Renal Failure- creatinine at baseline Alcohol abuse- pt reports a half pint of vodka or a few beers per day S/P left orchiectomy Plan POD3 from I&D, wound care packed and bandaged incision site afternoon of 05/31. Bandage is in place and clean. Continue iv abx and fluids for cellulitis and UTI, switch to oral abx for discharge. Surgical culture preliminary revealed no growth, anaerobic culture revealed few gram positive cocci and gram negative diplococci. Blood cultures revealed no growth. Continue to monitor vitals and WBCs. Pt should continue to ambulate as tolerated. Pt has creatinine of 3.57, pt reports this is baseline. Pt mentioned medicine talked about discharge today if social plan is appropriate. LEONA ELIAS DO 06/01/22 0942: Subjective Time Seen by a Provider: 09:32 Subjective/Events-last exam Pt seen and examined, sitting up in bed appears very comfortable. He denies pain and tolerated wound care yesterday. Review of Systems General: No Chills, No Night Sweats Pulmonary: No Dyspnea, No Cough Cardiovascular: No: Chest Pain Gastrointestinal: No: Nausea, Vomiting Objective Exam General Appearance: No Apparent Distress, Obese HEENT: PERRL/EOMI, Moist Mucous Membranes Respiratory: Lungs Clear, No Respiratory Distress Cardiovascular: Regular Rate, Rhythm, No Murmur Gastrointestinal: non tender, soft Neurologic/Psychiatric: Alert, Oriented x3 Skin: Other (scrotal incision good granulation, no necrotic tissue seen, packed and covered 05/31 from bandage by wound care) Assessment/Plan Assessment/Plan Assessment/Plan S/P I&D for Left scrotal abscess - POD3 Right 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 UTI- gram negative erno on clean catch Leukocytosis- down to 9.4 today from 14.1 on 05/29 CHF Renal Failure- creatinine at baseline Alcohol abuse- pt reports a half pint of vodka or a few beers per day S/P left orchiectomy Plan POD3 from I&D, wound care packed and bandaged incision site afternoon of 05/31. Bandage is in place and clean. Continue iv abx and fluids for cellulitis and UTI, switch to oral abx for discharge. Surgical culture preliminary revealed no growth, anaerobic culture revealed few gram positive cocci and gram negative diplococci. Blood cultures revealed no growth. Continue to monitor vitals and WBCs. Pt should continue to ambulate as tolerated. Pt has creatinine of 3.57, pt reports this is baseline. Pt mentioned medicine talked about discharge today if social plan is appropriate. Supervisory-Addendum Brief Verification & Attestation Participated in pt care: history, MDM, physical Personally performed: exam, history, MDM, supervision of care Care discussed with: Medical Student Procedures: n/a Verification and Attestation of Medical Student E/M Service A medical student performed and documented this service. I then reviewed and verified all information documented by the medical student and made modifications to such information, when appropriate. I personally performed a physical exam, medical decision making and then discussed any differences between the notes and made revisions as necessary to create one note. Leona Elias , 06/01/22 , 09:42 JESUS BENNETT Jun 01, 2022 07:59 LEONA ELIAS DO Jun 01, 2022 09:42
[2022-06-01] MEDS ORDERED: AMOX1TAB12 PO (09:57)
--- NOTE | 2022-06-01 10:18 | Discharge Summary ---
Diagnosis/Chief Complaint Date of Admission May 28, 2022 at 17:05 Date of Discharge Admission Diagnosis Sepsis Primary Care Discharge Diagnosis (1) Obesity (2) Tobacco abuse (3) Alcohol abuse (4) Homeless (5) Hyperkalemia (6) Scrotal abscess Status: Acute (7) Chronic renal failure, stage 4 (severe) Status: Acute (8) Sepsis (9) Urinary tract infection Status: Acute Discharge Summary Discharge Physical Exam Allergies: Coded Allergies: codeine (Verified Allergy, Severe, Anaphylaxis, 04/11/22) Vitals & I&Os Vital Signs Date Time Temp Pulse Resp B/P (MAP) Pulse Ox O2 Delivery O2 Flow Rate FiO2 06/01/22 07:40 36.6 85 18 133/82 (99) 96 Room Air 05/31/22 08:24 0.00 General Appearance: No Apparent Distress, WD/WN, Obese Respiratory: Lungs Clear Cardiovascular: Regular Rate, Rhythm Neurologic/Psychiatric: Alert, Oriented x3 Hospital Course Patient was admitted to the hospital secondary to sepsis from a scrotal abscess and cellulitis. Surgery was consulted and he underwent incision and drainage with debridement. He was treated with IV antibiotics and did very well. Blood cultures were negative. Surgical culture did have slight growth in the anaerobic culture so he was discharged home on Augmentin. Outpatient wound care was arranged through [facility]. He is to follow-up with Dr. Elias in 2 weeks. Labs (last 24 hrs) Laboratory Tests 06/01/22 05:36: White Blood Count 9.4, Red Blood Count 2.78L, Hemoglobin 9.8L, Hematocrit 30L, Mean Corpuscular Volume 108H, Mean Corpuscular Hemoglobin 35H, Mean Corpuscular Hemoglobin Concent 33, Red Cell Distribution Width 13.9, Platelet Count 212, Mean Platelet Volume 10.2, Immature Granulocyte % (Auto) 8, Neutrophils (%) (Auto) 65, Lymphocytes (%) (Auto) 14, Monocytes (%) (Auto) 10, Eosinophils (%) (Auto) 3, Basophils (%) (Auto) 1, Neutrophils # (Auto) 6.1, Lymphocytes # (Auto) 1.3, Monocytes # (Auto) 0.9, Eosinophils # (Auto) 0.3, Basophils # (Auto) 0.1, Immature Granulocyte # (Auto) 0.7H, Sodium Level 142, Potassium Level 4.9, Chloride Level 121H, Carbon Dioxide Level 13L, Anion Gap 8, Blood Urea Nitrogen 35H, Creatinine 3.57H, Estimat Glomerular Filtration Rate 18, BUN/Creatinine Ratio 10, Glucose Level 96, Calcium Level 7.9L, Corrected Calcium 8.9, Total Bilirubin 0.2, Aspartate Amino Transf (AST/SGOT) 19, Alanine Aminotransferase (ALT/SGPT) 16, Alkaline Phosphatase 50, Total Protein 6.1L, Albumin 2.7L Microbiology 05/29/22 MRSA Screen - Final, Complete MRSA not isolated 05/29/22 Gram Stain - Final, Resulted 05/29/22 Anaerobic Culture - Preliminary, Resulted Slight Growth Present 05/29/22 Surgical Culture - Preliminary, Resulted No growth 05/28/22 Urine Culture - Final, Complete 3 or more isolates Gram Negative Eron 05/28/22 Blood Culture - Preliminary, Resulted No growth Patient resulted labs reviewed. Pending Labs Laboratory Tests 06/01/22 05:36: White Blood Count 9.4, Red Blood Count 2.78, Hemoglobin 9.8, Hematocrit 30, Mean Corpuscular Volume 108, Mean Corpuscular Hemoglobin 35, Mean Corpuscular Hemoglobin Concent 33, Red Cell Distribution Width 13.9, Platelet Count 212, Mean Platelet Volume 10.2, Immature Granulocyte % (Auto) 8, Neutrophils (%) (Auto) 65, Lymphocytes (%) (Auto) 14, Monocytes (%) (Auto) 10, Eosinophils (%) (Auto) 3, Basophils (%) (Auto) 1, Neutrophils # (Auto) 6.1, Lymphocytes # (Auto) 1.3, Monocytes # (Auto) 0.9, Eosinophils # (Auto) 0.3, Basophils # (Auto) 0.1, Immature Granulocyte # (Auto) 0.7, Sodium Level 142, Potassium Level 4.9, Chloride Level 121, Carbon Dioxide Level 13, Anion Gap 8, Blood Urea Nitrogen 35, Creatinine 3.57, Estimat Glomerular Filtration Rate 18, BUN/Creatinine Ratio 10, Glucose Level 96, Calcium Level 7.9, Corrected Calcium 8.9, Total Bilirubin 0.2, Aspartate Amino Transf (AST/SGOT) 19, Alanine Aminotransferase (ALT/SGPT) 16, Alkaline Phosphatase 50, Total Protein 6.1, Albumin 2.7 Imaging: Reviewed Imaging Report Discussion & Recommendations Discharge Planning: >30 minutes discharge planning Discharge Home Medications: Active Scripts Active Amox Tr-K Clv 875-125 mg Tab (Amoxicillin/Potassium Clav) 875 Mg-125 Mg Tablet 1 Each PO BID Reported Magnesium (Magnesium Oxide) 400 Mg Magnesium Tablet 400 Mg PO DAILY Vitamin C (Ascorbic Acid) 500 Mg Tablet 500 Mg PO DAILY Vitamin D3 (Cholecalciferol (Vitamin D3)) 50 Mcg (2000 Unit) Capsule 50 Mcg PO DAILY Tylenol Extra Strength (Acetaminophen) 500 Mg Tablet 1,000 Mg PO Q8H PRN Instructions to patient/family Please see electronic discharge instructions given to patient. Problem Qualifiers (1) Obesity: Obesity type: unspecified obesity type Obesity classification: adult class 1 (BMI 30 - 34.9) Serious obesity comorbidity presence: without serious comorbidity Body mass index: BMI 34.0-34.9 Qualified Codes: E66.9 - Obesity, unspecified; Z68.34 - Body mass index [BMI] 34.0-34.9, adult (2) Sepsis: Sepsis type: sepsis due to unspecified organism Sepsis acute organ dysfunction status: without acute organ dysfunction Qualified Codes: A41.9 - Sepsis, unspecified organism (3) Urinary tract infection: Urinary tract infection type: acute cystitis Hematuria presence: without hematuria Qualified Codes: N30.00 - Acute cystitis without hematuria GOMEZ LEYVA MD Jun 01, 2022 10:18
[2022-06-01 11:35] VITALS: BP 174/96
[2022-06-01] MEDS: PIPERACILLIN SODIUM/TAZOBACTAM 4.5 GM in NS (IVPB) 100 ML IV SCH (11:39)
--- NOTE | 2022-06-01 14:27 | Discharge Inst-Simple/Standard ---
Discharge Inst-Standard Patient Instructions/Follow Up Plan of Care/Instructions/FU: Please continue to take your medications as written. Please follow up with your primary care doctor to follow up this hospital stay. Activity as Tolerated: Yes Discharge Diet: No Restrictions Return to The Hospital For: Chest pain, shortness of breath, fever, weakness, if you feel you are getting worse. GOMEZ LEYVA MD Jun 01, 2022 14:27
== END 2022-06-01 15:18 | disposition home or self-care (01) | DRG 854 ==
LOC: EDUNIT# 12:26 → ER FS 12:27 → 4TH 17:05
PROVIDERS: ADMIT Family Medicine; ATTEND Family Medicine
PROC: 0VB50ZZ Excision of Scrotum, Open Approach (ICD-10-PCS; principal; 2022-05-29 11:27)
DX: A41.9 Sepsis, unspecified organism (principal); N18.4 Chronic kidney disease, stage 4 (severe); N39.0 Urinary tract infection, site not specified; N49.2 Inflammatory disorders of scrotum; K40.90 Unilateral inguinal hernia, without obstruction or gangrene, not specified as recurrent; F17.210 Nicotine dependence, cigarettes, uncomplicated; Z59.02 Unsheltered homelessness; E87.5 Hyperkalemia; D64.9 Anemia, unspecified; F10.10 Alcohol abuse, uncomplicated; Z59.00 Homelessness unspecified; E66.9 Obesity, unspecified; Z68.34 Body mass index [BMI] 34.0-34.9, adult; Z66 Do not resuscitate; I50.9 Heart failure, unspecified; N40.0 Benign prostatic hyperplasia without lower urinary tract symptoms; D72.829 Elevated white blood cell count, unspecified; N49.3 Fournier gangrene; B96.89 Other specified bacterial agents as the cause of diseases classified elsewhere
CPT/HCPCS: 36415; 72192; 76870; 80053; 81000; 83605; 85007; 85025; 85027; 86141; 87040; 87070; 87075; 87076; 87077; 87081; 87088; 87185; 87205

== ENCOUNTER 2022-06-02 09:31 | Emergency (ER) | payer MEDICAID, OTHER ==
[~2022-06-02 09:31] MED LIST: ACET-2267 PO; AMOX1TAB12 PO; ASCO500T17 PO; CHOL200074 PO; MAGN400T39 PO
== END 2022-06-02 10:00 | disposition left against medical advice (07) ==
LOC: EDUNIT# 09:31 → ER FS 09:33
DX: Z48.01 Encounter for change or removal of surgical wound dressing (principal)

== ENCOUNTER 2022-06-29 06:44 | Observation (INO) | payer MEDICAID ==
[~2022-06-29] VITALS: Ht 182.9 cm; Wt 110.6 kg
--- NOTE | 2022-06-29 07:36 | ED General ---
General Chief Complaint: General Problems/Pain Stated Complaint: LEFT LEG PAIN/SWELLING Nursing Triage Note: Patient presents to the ED with c/o intermittent diarrhea, left leg swelling and redness, scrotum burning and discharge. Reports diarrhea started 3 weeks ago. Scrotal burning and drainage and left leg redness and swelling starting 2 days ago. Denies fever. States that he currently lives in his van. Source of Information: Patient, Old Records Exam Limitations: No Limitations History of Present Illness Date Seen by Provider: Jun 29, 2022 Time Seen by Provider: 07:05 Initial Comments This is 61-year-old gentleman presents to the emergency room with complaints of bilateral lower extremity edema, left greater than right, with associated aided tenderness of the left calf. He denies any fever. The left leg is warmer than the right and pedal pulses stronger on the right than the left. 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 He had a complication from this with infection and abscess requiring hospitalization and surgical debridement of necrotic tissue and drainage of abscess in May in [place]. He additionally has a prior history of dilated cardiomyopathy and chronic kidney disease. Based on review of chart, it appears his baseline creatinine is somewhere around 3.5. His primary care provider is Dr. Simmons and his surgeon is Dr. Elias. He is notably hypertensive at this time. He notes some decrease in urine production and his urine being cloudy. Patient presently lives in his vehicle and has limited resources. He followed up with [facility] for wound care after his last admission but has not received any other health care in the interim. Allergies and Home Medications Allergies Coded Allergies: codeine (Verified Allergy, Severe, Anaphylaxis, 04/11/22) Patient Home Medication List Home Medication List Reviewed: Yes Acetaminophen (Tylenol Extra Strength) 500 Mg Tablet, 1,000 MG PO Q8H PRN for PAIN-MILD (1-4), (Reported) Entered as Reported by: ADRIANA WILSON on 05/29/22 1008 Amoxicillin/Potassium Clav (Amox Tr-K Clv 875-125 mg Tab) 875 Mg-125 Mg Tablet, 1 EACH PO BID Prescribed by: GOMEZ CARRENO on 06/01/22 0957 Ascorbic Acid (Vitamin C) 500 Mg Tablet, 500 MG PO DAILY, (Reported) Entered as Reported by: ADRIANA WILSON on 05/29/22 1008 Cholecalciferol (Vitamin D3) (Vitamin D3) 50 Mcg (2000 Unit) Capsule, 50 MCG PO DAILY, (Reported) Entered as Reported by: ADRIANA WILSON on 05/29/221007 Magnesium Oxide (Magnesium) 400 Mg Magnesium Tablet, 400 MG PO DAILY, (Reported) Entered as Reported by: ADRIANA WILSON on 05/29/22 100 Review of Systems Review of Systems Constitutional: no symptoms reported EENTM: no symptoms reported Respiratory: dyspnea on exertion Cardiovascular: see HPI, edema Gastrointestinal: no symptoms reported Genitourinary: see HPI Musculoskeletal: no symptoms reported Skin: see HPI Psychiatric/Neurological: No Symptoms Reported Hematologic/Lymphatic: See HPI Immunological/Allergic: no symptoms reported Past Yfzfmhb-Elaggu-Zrmwhn Hx Patient Social History Tobacco Use?: Yes Tobacco type used: Cigarettes Smoking Status: Current Everyday Smoker Substance use?: Yes Substance type: Other Additional substance use comme: Marijuana edibles Substance frequency: Couple times a week Alcohol Use?: Yes Alcohol Frequency: Couple times a week ("Every other day") Pt feels they are or have been: No Immunizations Up To Date First/Initial COVID19 Vaccinat: Denies Second COVID19 Vaccination Hector: Denies Third COVID19 Vaccination Date: Denies Past Medical History Surgery/Hospitalization HX: chronic renal failure, peripheral edema; CHF Surgeries: Yes (Prostate laser surgery, groin I&D and debridement) 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) Respiratory: No Currently Using CPAP: No Currently Using BIPAP: No Cardiac: Yes Cardiomyopathy, Chronic Edema/Swelling Neurological: No Genitourinary: Yes (History of Keya's gangrene requiring debridement and a left orchiectomy) Benign Prostatic Hyperpl, Kidney Infection, Renal Failure Gastrointestinal: No Musculoskeletal: No Endocrine: No HEENT: No Loss of Vision: Denies Hearing Impairment: Denies Cancer: No Integumentary: Yes Recent Skin Changes Family Medical History Cancer, Diabetes, Other Conditions/Hx Physical Exam Vital Signs Vital Signs - First Documented Capillary Refill : Less Than 3 Seconds Height, Weight, BMI Height: '" Weight: lbs. oz. kg; 32.00 BMI Method: General Appearance: No Apparent Distress, WD/WN HEENT: PERRL/EOMI, Normal ENT Inspection Neck: Normal Inspection; No JVD Respiratory: Lungs Clear, Normal Breath Sounds, No Accessory Muscle Use, No Respiratory Distress Cardiovascular: Regular Rate, Rhythm, No Murmur, Other (Bilateral lower extremi ty edema. Right pedal pulse stronger than left.) Gastrointestinal: Non Tender, Soft Genital/Rectal: Other (Erythema and foul-smelling moisture in the left groin. Healing open wound from I&D.) Extremity: Other (Bilateral pitting lower extremity edema, left greater than right. Warmth and tenderness to the left calf) Neurologic/Psychiatric: Alert, Oriented x3, No Motor/Sensory Deficits, Normal Mood/Affect Skin: Normal Color, Warm/Dry, Other (Warm and dry without rashes except as otherwise noted above.) Focused Exam Lactate Level 06/29/22 09:00: Lactic Acid Level 0.59 Lactic Acid Level Laboratory Tests Test 06/29/22 09:00 Lactic Acid Level 0.59 MMOL/L (0.50-2.00) Progress/Results/Core Measures Suspected Sepsis SIRS Temperature: Pulse: 105 Respiratory Rate: 18 Laboratory Tests 06/29/22 07:27: White Blood Count 9.7 Blood Pressure 183 /94 Mean: 123 06/29/22 09:00: Lactic Acid Level 0.59 Laboratory Tests 06/29/22 07:27: Creatinine 3.85H, INR Comment 0.9, Platelet Count 141, Total Bilirubin 0.3 Results/Orders Lab Results Laboratory Tests Test 06/29/22 07:27 06/29/22 07:55 06/29/22 09:00 Range/Units White Blood Count 9.7 4.3-11.0 10^3/uL Red Blood Count 3.55 L 4.30-5.52 10^6/uL Hemoglobin 12.9 L 13.3-17.7 g/dL Hematocrit 38 L 40-54 % Mean Corpuscular Volume 108 H 80-99 fL Mean Corpuscular Hemoglobin 36 H 25-34 pg Mean Corpuscular Hemoglobin Concent 34 32-36 g/dL Red Cell Distribution Width 15.1 H 10.0-14.5 % Platelet Count 141 130-400 10^3/uL Mean Platelet Volume 10.6 9.0-12.2 fL Immature Granulocyte % (Auto) 2 % Neutrophils (%) (Auto) 70 42-75 % Lymphocytes (%) (Auto) 13 12-44 % Monocytes (%) (Auto) 8 0-12 % Eosinophils (%) (Auto) 5 0-10 % Basophils (%) (Auto) 1 0-10 % Neutrophils # (Auto) 6.8 1.8-7.8 X 10^3 Lymphocytes # (Auto) 1.3 1.0-4.0 X 10^3 Monocytes # (Auto) 0.8 0.0-1.0 X 10^3 Eosinophils # (Auto) 0.5 H 0.0-0.3 10^3/uL Basophils # (Auto) 0.1 0.0-0.1 10^3/uL Immature Granulocyte # (Auto) 0.2 H 0.0-0.1 10^3/uL Prothrombin Time 12.5 12.2-14.7 SEC INR Comment 0.9 0.8-1.4 Activated Partial Thromboplast Time 27 24-35 SEC D-Dimer 3.89 H 0.00-0.49 UG/ML Sodium Level 140 135-145 MMOL/L Potassium Level 5.6 H 3.6-5.0 MMOL/L Chloride Level 111 H 98-107 MMOL/L Carbon Dioxide Level 16 L 21-32 MMOL/L Anion Gap 13 5-14 MMOL/L Blood Urea Nitrogen 45 H 7-18 MG/DL Creatinine 3.85 H 0.60-1.30 MG/DL Estimat Glomerular Filtration Rate 17 BUN/Creatinine Ratio 12 Glucose Level 96 70-105 MG/DL Calcium Level 8.4 L 8.5-10.1 MG/DL Corrected Calcium 8.5 8.5-10.1 MG/DL Magnesium Level 1.9 1.6-2.4 MG/DL Total Bilirubin 0.3 0.1-1.0 MG/DL Aspartate Amino Transf (AST/SGOT) 11 5-34 U/L Alanine Aminotransferase (ALT/SGPT) 7 0-55 U/L Alkaline Phosphatase 87 40-136 U/L C-Reactive Protein 2.14 H <0.50 MG/DL Pro-B-Type Natriuretic Peptide 1184.0 H <125.0 PG/ML Total Protein 7.5 6.4-8.2 GM/DL Albumin 3.9 3.2-4.5 GM/DL Serum Alcohol < 10 <10 MG/DL Urine Color YELLOW Urine Clarity CLOUDY Urine pH 7.0 5-9 Urine Specific [place] 1.020 1.016-1.022 Urine Protein 2+ H NEGATIVE Urine Glucose (UA) NEGATIVE NEGATIVE Urine Ketones NEGATIVE NEGATIVE Urine Nitrite POSITIVE H NEGATIVE Urine Bilirubin NEGATIVE NEGATIVE Urine Urobilinogen 0.2 < = 1.0 MG/DL Urine Leukocyte Esterase 3+ H NEGATIVE Urine RBC (Auto) 2+ H NEGATIVE Urine RBC 50-100 H /HPF Urine WBC 50-100 H /HPF Urine Squamous Epithelial Cells 0-2 /HPF Urine Renal Epithelial Cells RARE /HPF Urine Crystals NONE /LPF Urine Bacteria MODERATE H /HPF Urine Casts NONE /LPF Urine Mucus NEGATIVE /LPF Urine Culture Indicated YES Lactic Acid Level 0.59 0.50-2.00 MMOL/L My Orders Orders - YESSI NINO MD Cbc With Automated Diff (06/29/22 07:04) Fibrin Degradation Products (06/29/22 07:04) Crp Fs (06/29/22 07:04) Ed Iv/Invasive Line Start (06/29/22 07:04) Comprehensive Metabolic Panel (06/29/22 07:21) Magnesium (06/29/22 07:21) Probnp Fs (06/29/22 07:24) Ua Culture If Indicated (06/29/22 07:36) Us Venous Lower Ext Lt (06/29/22 08:19) Urine Culture (06/29/22 07:55) Blood Culture (06/29/22 08:54) Protime With Inr (06/29/22 08:54) Partial Thromboplastin Time (06/29/22 08:54) Chest 1 View Ap/Pa Only (06/29/22 08:54) Vital Signs Adult Sepsis Patie Q15M (06/29/22 08:54) Remove Rings In Anticipation O (06/29/22 08:54) Lactic Acid Analyzer (06/29/22 08:54) Enoxaparin Injection (Lovenox Injection) (06/29/22 09:00) Piperacillin Sodium/Tazobactam (Zosyn Vi (06/29/22 09:00) Furosemide Injection (Lasix Injection) (06/29/22 09:15) Ed Admission (Communication) (06/29/22 09:08) Code/Resuscitation (06/29/22 09:08) Alcohol (11/18/22 09:12) Medications Given in ED Current Medications Medications Dose Ordered Sig/Jessica Route Start Time Stop Time Status Last Admin Dose Admin Enoxaparin Sodium 100 mg ONCE ONCE SC 06/29/22 09:00 06/29/22 09:01 DC 06/29/22 09:28 100 MG Furosemide 20 mg ONCE ONCE IVP 06/29/22 09:15 06/29/22 09:16 DC 06/29/22 09:28 20 MG Piperacillin Sod/ Tazobactam Sod 4.5 gm/Sodium Chloride 100 ml @ 200 mls/hr ONCE ONCE IV 06/29/22 09:00 06/29/22 09:29 DC 06/29/22 09:30 200 MLS/HR Vital Signs/I&O 06/29/22 06/29/22 06/29/22 06:54 06:54 09:55 Temp 36.1 36.1 36.1 Pulse 105 105 78 Resp 18 18 18 B/P (MAP) 183/94 (123) 183/94 (123) 127/76 Pulse Ox 100 100 100 O2 Delivery Room Air Room Air Room Air Capillary Refill : Less Than 3 Seconds Blood Pressure Mean: 123 Progress Note : Time: :22 Progress Note Mr. Zuleta had multiple medical problems identified during this ER visit. Hyperkalemia was noted in the context of his edema and renal failure. Lasix 20 mg IV was ordered for initial treatment of the edema and hyperkalemia. Urinary tract infection was identified. Cultures from prior admission were reviewed. He had unusual polymicrobial infection identified with urinalysis and wound culture. Initial therapy will be started with Zosyn after drawing blood cultures and lactic acid. Although he did not technically meet septic criteria, he is at high risk for developing sepsis so blood cultures were obtained. He was initially quite hypertensive but that normalized during the course of his ER stay without treatment. The moist foul-smelling skin around the groin wound may be developing cellulitis and/or fungal infection. Dr. Carreno is consulting Dr. Elias for evaluation of the wound. Consideration of antifungal therapy was communicated. I discussed CODE STATUS with the patient. He requests a modified code. Short-term intubation is acceptable to him. Chemical cardiac coding is also acceptable. He requests no CPR or defibrillation. Because of his frequent alcohol use, and alcohol level was also added to his orders. DVT was noted on the left lower extremity ultrasound, and therapy was started with Lovenox. Diagnostic Imaging Diagonstic Imaging: Ultrasound Plain Films/CT/US/NM/MRI: leg Comments Ultrasound discussed with quick service technician and report reviewed. See report below: NAME: NICHOLE ZULETA [facility] REC#: [id number] PT STATUS: REG ER : 1960 PHYSICIAN: YESSI NINO MD ADMIT DATE: 06/29/22/ER FS Signed Date of Exam:06/29/22 US VENOUS LOWER EXT LT PROCEDURE: US left lower extremity venous. TECHNIQUE: Multiple real-time grayscale images were obtained over the left lower extremity in various projections. Additional duplex Doppler and color Doppler images were also obtained. INDICATION: Left leg pain and swelling There is thrombosis of the left superficial femoral vein and popliteal vein segments of the left leg. The common femoral vein was patent with good color filling and compressibility. IMPRESSION: There is occlusive deep vein thrombosis in the left superficial femoral and popliteal veins. Dictated by: Dictated on workstation # [id number] Dict: 06/29/22899 Trans: 06/29/22901 [facility] [id number] Interpreted by: MLIAN AC MD Electronically signed by: MILAN AC MD 06/29/22901 Diagonstic Imaging: Xray Plain Films/CT/US/NM/MRI: chest Comments Chest x-ray viewed by me and report reviewed. See report below: NAME: NICHOLE ZULETA [facility] REC#: [id number] PT STATUS: REG ER : 1960 PHYSICIAN: YESSI NINO MD ADMIT DATE: 06/29/22/ER FS Draft Date of Exam:06/29/22 CHEST 1 VIEW AP/PA ONLY INDICATION: Edema Frontal chest obtained at 0904 a.m. Heart is mildly enlarged. There is central vascular congestion. There is no focal infiltrate or pneumothorax or pleural fluid. There is no sign of interstitial edema. IMPRESSION: Mild cardiomegaly with central vascular prominence, without edema or infiltrate. Dictated on workstation # [id number] Dict: 06/29/22916 Trans: 06/29/2222 [facility] [id number] Interpreted by: NICHOLE POND MD Departure Communication (Admissions) Time/Spoke to Admitting Phy: 08:50 Dr. Carreno Impression Primary Impression: Left leg DVT Qualified Codes: I82.402 - Acute embolism and thrombosis of unspecified deep veins of left lower extremity Additional Impressions: Wound of left groin Qualified Codes: S31.109A - Unspecified open wound of abdominal wall, unspecified quadrant without penetration into peritoneal cavity, initial encounter Hyperkalemia Lower extremity edema Chronic kidney disease Qualified Codes: N18.9 - Chronic kidney disease, unspecified Urinary tract infection Qualified Codes: N39.0 - Urinary tract infection, site not specified; R31.9 - Hematuria, unspecified Disposition: 30 STILL A PATIENT Condition: Improved Admissions Decision to Admit Reason: Admit from ER (General) Decision to Admit/Date: Jun 29, 2022 Time/Decision to Admit Time: 08:50 Transfer Transfer Time: 09:56 Transfer Facility: [facility] Departure-Patient Inst. Referrals: WILEY SIMMONS MD (PCP/Family) Primary Care Physician YESSI NINO MD Jun 29, 2022 07:36
[2022-06-29 07:45] LABS: HEMATOCRIT 38 % (40-54); HEMOGLOBIN 12.9 g/dL (13.3-17.7); MEAN CORPUSCULAR HEMOGLOBIN 36 pg (25-34); MEAN CORPUSCULAR VOLUME 108 fL (80-99); WHITE BLOOD COUNT 9.7 10^3/uL (4.3-11.0)
[2022-06-29 07:46] LABS: BASOPHILS # (AUTO) 0.1 10^3/uL (0.0-0.1); BASOPHILS % (AUTO) 1 % (0-10); EOSINOPHILS # (AUTO) 0.5 10^3/uL (0.0-0.3); EOSINOPHILS % (AUTO) 5 % (0-10); LYMPHOCYTES # (AUTO) 1.3 X 10^3 (1.0-4.0); LYMPHOCYTES % (AUTO) 13 % (12-44); MEAN CORPUSCULAR HGB CONC 34 g/dL (32-36); MEAN PLATELET VOLUME 10.6 fL (9.0-12.2); MONOCYTES # (AUTO) 0.8 X 10^3 (0.0-1.0); MONOCYTES % (AUTO) 8 % (0-12); NEUTROPHILS # (AUTO) 6.8 X 10^3 (1.8-7.8); NEUTROPHILS % (AUTO) 70 % (42-75); PLATELET COUNT 141 10^3/uL (130-400)
[2022-06-29 08:11] LABS: BILIRUBIN,URINE NEGATIVE (NEGATIVE); CLARITY,URINE CLOUDY; COLOR,URINE YELLOW; GLUCOSE, URINE (UA) NEGATIVE (NEGATIVE); KETONES,URINE NEGATIVE (NEGATIVE); LEUKOCYTE ESTERASE ,URINE 3+ (NEGATIVE); NITRITE,URINE POSITIVE (NEGATIVE); PROTEIN,URINE 2+ (NEGATIVE)
[2022-06-29 08:13] LABS: CREATININE SERUM 3.85 MG/DL (0.60-1.30); POTASSIUM 5.6 MMOL/L (3.6-5.0)
[2022-06-29 08:14] LABS: ALBUMIN 3.9 GM/DL (3.2-4.5); BILIRUBIN,TOTAL 0.3 MG/DL (0.1-1.0); CALCIUM 8.4 MG/DL (8.5-10.1); MAGNESIUM 1.9 MG/DL (1.6-2.4); TOTAL PROTEIN 7.5 GM/DL (6.4-8.2)
[2022-06-29 08:22] LABS: BACTERIA,URINE MODERATE /HPF; RBC,URINE 50-100 /HPF; RENAL EPITHELIAL CELLS,URINE RARE /HPF; SQUAMOUS EPITHELIAL CELL,UR 0-2 /HPF; WBC,URINE 50-100 /HPF
[2022-06-29] MEDS ORDERED: ENOXAPARIN 100 MG/1 ML (LOVENOX) SYR SC ONE (09:00)
[2022-06-29] MEDS ORDERED: PIPERACILLIN SODIUM/TAZOBACTAM 4.5 GM in NS (IVPB) 100 ML IV ONE (09:00)
--- NOTE | 2022-06-29 09:04 | Diagnostic Imaging Report ---
PROCEDURE: US left lower extremity venous. TECHNIQUE: Multiple real-time grayscale images were obtained over the left lower extremity in various projections. Additional duplex Doppler and color Doppler images were also obtained. INDICATION: Left leg pain and swelling There is thrombosis of the left superficial femoral vein and popliteal vein segments of the left leg. The common femoral vein was patent with good color filling and compressibility. IMPRESSION: There is occlusive deep vein thrombosis in the left superficial femoral and popliteal veins. Dictated by: Dictated on workstation # [id number]
[2022-06-29 09:14] LABS: INR 0.9 (0.8-1.4); PROTHROMBIN TIME PATIENT 12.5 SEC (12.2-14.7)
[2022-06-29] MEDS ORDERED: FUROSEMIDE 40 MG/4 ML INJ (LASIX) IVP ONE (09:15)
--- NOTE | 2022-06-29 09:23 | Diagnostic Imaging Report ---
INDICATION: Edema Frontal chest obtained at 0904 a.m. Heart is mildly enlarged. There is central vascular congestion. There is no focal infiltrate or pneumothorax or pleural fluid. There is no sign of interstitial edema. IMPRESSION: Mild cardiomegaly with central vascular prominence, without edema or infiltrate. Dictated by: Dictated on workstation # [id number]
[2022-06-29] MEDS ORDERED: ONDANSETRON 4 MG/2 ML (SDV) Z0FRAN IV PRN (11:00)
[2022-06-29] MEDS ORDERED: ANTACID SUSP 30 ML UDC (MYLANTA) PO PRN (11:00)
[2022-06-29] MEDS ORDERED: ACETAMINOPHEN 325 MG TABLET PO PRN (11:00)
[2022-06-29] MEDS ORDERED: MELATONIN 3 MG TABLET PO PRN (11:00)
[2022-06-29 11:14] VITALS: BP 149/89
--- NOTE | 2022-06-29 11:30 | Occupational Therapy Eval ---
OT Evaluation-General/PLF Medical Diagnosis Admission Date Jun 29, 2022 at 10:50 Medical Diagnosis: Hyperkalemia, DVT Onset Date: Jun 29, 2022 Therapy Diagnosis Therapy Diagnosis: N/A Precautions Precautions/Isolations: Standard Precautions Referral Physician: Ev Referral Reason: Evaluation/Treatment Medical History Current History Pt came into ER with c/o of diarrhea, left leg swelling and redness, and scrotum burning and discharge. Pt lives alone in his van. He was independent with all ADLs/IADLs prior to admission. He did not use any device prior. He stated that he has an outside solar shower that he uses in the summer and fall, but during the winter he usually will rent a motel for a night or two to shower. Reviewed History: Yes Social History Home: van Current Living Status: Alone ADL-Prior Level of Function SCALE: Activities may be completed with or without assistive devices. 6-Cqongokngl-tfxfhuc completes the activity by him/herself with no assistance from a helper. 5-Set-up or Clean-up Assistance-helper sets up or cleans up; patient completes activity. [place] assists only prior to or following the activity. 4-Supervision or Touching Assistance-helper provides verbal cues and/or touching/steadying and/or contact guard assistance as patient completes activity. Assistance may be provided throughout the activity or intermittently. 3-Partial/Moderate Assistance-helper does LESS THAN HALF the effort. [place] lifts, holds or supports trunk or limbs, but provides less than half the effort. 2-Substantial/Maximal Assistance-helper does MORE THAN HALF the effort. [place] lifts or holds trunk or limbs and provides more than half the effort. 1-Jgufmxcgx-jouymn does ALL the effort. Patient does none of the effort to complete the activity. Or, the assistance of 2 or more helpers is required for the patient to complete the activity. If activity was not attempted, code reason: 7-Patient Refused. 9-Not Applicable-not attempted and the patient did not perform the activity before the current illness, exacerbation or injury. 10-Not Attempted due to Environmental Limitations-(lack of equipment, weather restraints, etc.). 88-Not Attempted due to Medical Conditions or Safety Concerns. Self Care: Independent Functional Cognition: Independent Drive Self: Yes OT Current Status Subjective Pt sitting up in bed upon arrival. He agrees to therapy eval. Appearance Pt left sitting up in bed with all needs within reach. Mental Status/Objective Patient Orientation: Person, Place, Time, Situation Current Glasses/Contacts: Yes (reading) Hearing Aids: No Dentures/Partials: No Hand Dominance: Right Upper Extremity ROM WNL Upper Extremity Strength 5/5 in all planes ADL-Treatment Upper Body Dressing (QC): 6 Lower Body Dressing (QC): 6 On/Off Footwear (QC): 6 Toileting Hygiene (QC): 6 Sit<>stand: independent. Pt showed no LOB or any concerns with dynamic standing balance. According to nursing, he is able to toilet independently. Pt was independent with doffing/donning socks. Pt would benefit from wearing Choco Hose compression socks to help assist in his DVT management. Pt shows no concerns with any self-care tasks and reports no concerns or questions as well. Pt will be d/c from skilled OT services at this time due to independence with ADLs. Education OT Patient Education: Progress toward Goal/Update tx plan, Reviewed precautions, Rehab process Teaching Recipient: Patient Teaching Methods: Discussion Response to Teaching: Verbalize Understanding, Return Demonstration OT Hosiery Pairer Goals Hosiery Pairer Goals 1=Demonstrate adherence to instructed precautions during ADL tasks. 2=Patient will verbalize/demonstrate understanding of assistive devices/modifications for ADL. 3=Patient will improve strength/tolerance for activity to enable patient to perform ADL's. OT Education/Plan Problem List/Assessment Assessment: No Skilled OT Needs ID'd Discharge Recommendations Plan/Recommendations: Discontinue OT Therapy Discharge Recommendati: Home & Family (home alone) Treatment Plan/Plan of Care Treatment,Training & Education: Yes Patient would benefit from OT for education, treatment and training to promote independence in ADL's, mobility, safety and/or upper extremity function for ADL's. Plan of Care: ADL Retraining, Functional Mobility Treatment Duration: Jun 29, 2022 Frequency: 1 time per week Estimated Hrs Per Day: .25 hour per day Agreement: Yes Time Start Time: 11:10 Stop Time: 11:18 DATE: Jun 29, 2022 Total Time Billed (hr/min): 8 Billed Treatment Time 1 visit Roxy Flores OT Jun 29, 2022 11:30
[2022-06-29] MEDS: inSUlin ASPART (NovoLOG) 1 UNIT/0.01 ML (CHARGE PER UNIT) SC SCH ×3 (11:39→20:00)
--- NOTE | 2022-06-29 11:41 | Physical Therapy Evaluation ---
PT Evaluation-General Medical Diagnosis Admission Date Jun 29, 2022 at 10:50 Medical Diagnosis: Hyperkalemia, DVT Onset Date: Jun 29, 2022 Therapy Diagnosis Therapy Diagnosis: impaired mobility Precautions Precautions/Isolations: Standard Precautions Weight Bear Status Right Lower Extremity: Right Weight Bearing/Tolerated Left Lower Extremity: Left Weight Bearing/Tolerated Referral Physician: Ev Reason for Referral: Evaluation/Treatment Medical History Pertinent Medical History: HTN Additional Medical History Surgery/Hospitalization HX: chronic renal failure, peripheral edema; CHF Surgeries: Yes (Prostate laser surgery, groin I&D and debridement) 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) Respiratory: No Currently Using CPAP: No Currently Using BIPAP: No Cardiac: Yes Cardiomyopathy, Chronic Edema/Swelling Neurological: No Genitourinary: Yes (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 6-Wsmvkvlpho-rashyxn completes the activity by him/herself with no assistance from a helper. 5-Set-up or Clean-up Assistance-helper sets up or cleans up; patient completes activity. [place] assists only prior to or following the activity. 4-Supervision or Touching Assistance-helper provides verbal cues and/or touching/steadying and/or contact guard assistance as patient completes activity. Assistance may be provided throughout the activity or intermittently. 3-Partial/Moderate Assistance-helper does LESS THAN HALF the effort. [place] lifts, holds or supports trunk or limbs, but provides less than half the effort. 2-Substantial/Maximal Assistance-helper does MORE THAN HALF the effort. [place] lifts or holds trunk or limbs and provides more than half the effort. 2-Htsjlsgmd-clygfm does ALL the effort. Patient does none of the effort to complete the activity. Or, the assistance of 2 or more helpers is required for the patient to complete the activity. If activity was not attempted, code reason: 7-Patient Refused. 9-Not Applicable-not attempted and the patient did not perform the activity before the current illness, exacerbation or injury. 10-Not Attempted due to Environmental Limitations-(lack of equipment, weather restraints, etc.). 88-Not Attempted due to Medical Conditions or Safety Concerns. Bed Mobility: 6 Transfers (B,C,W/C): 6 Gait: 6 Stairs: 6 Indoor Mobility (Ambulation): Independent Stairs: Independent Prior Devices Use: None PT Evaluation-Current Subjective Patient in bed pre-tx, reports pain only when standing on his L leg but did not score it, agrees to PT. Objective Patient Orientation: Person, Place, Situation ROM/Strength ROM Lower Extremities BLE grossly WNL Strength Lower Extremities BLE grossly 5/5 Neuromuscular (Tone, Coordination, Reflexes) coordination intact Sensory Vision: Functional Hearing: Functional Hand Dominance: Right Sensation Right Lower Extremit: Intact Sensation Left Lower Extremity: Intact Transfers Roll Left to Right (QC): 6 Sit to Lying (QC): 6 Lying to Sitting/Side of Bed(Q: 6 Sit to Stand (QC): 6 Chair/Lmt-py-Inart Xfer(QC): 6 Gait Does the Patient Walk?: Yes Mode of Locomotion: Walk Anticipated Mode of Locomotion: Walk Walk 10 feet (QC): 6 Walk 50 ft with 2 Turns(QC): 6 Walk 150 ft (QC): 6 Distance: 300' Gait Assistive Device: None Comments/Gait Description Patient ambulates with steady balance and good gait, independent. Balance Sitting Static: Normal Sitting Dynamic: Normal Standing Static: Normal Standing Dynamic: Normal Treatment Ambulation, LE Strengthening (Hip Flexion x20, LAQ x20) Assessment/Needs Patient is strong and independent with transfers, bed mobility, and ambulation, requires no assistive device. Patient in recliner post-tx with nurse call, phone, tray, all needs met. Patient to be DC from PT. Rehab Potential: Good PT Plan Treatment/Plan Treatment Plan: Discontinue PT Treatment Duration: Jun 29, 2022 Frequency: 1 time per week Estimated Hrs Per Day: .25 hour per day Patient and/or Family Agrees t: Yes Discharge Recommendations Plan Patient independent and to be DC from PT at this time. Time Time In: 1120 Time Out: 1130 DATE: Jun 29, 2022 Total Billed Treatment Time: 10 Total Billed Treatment 1 visit EVL 10min THUAN CHEATHAM PT Jun 29, 2022 11:41
[2022-06-29] MEDS: NS IV 1000 ML 1,000 ML IV SCH ×2 (11:48→19:49)
--- NOTE | 2022-06-29 12:05 | Consultation - Surgery ---
BETSY RUFFIN 06/29/22 1205: History of Present Illness History of Present Illness Patient Consulted On(bishnu/time) 06/29/22 11:55 Date Seen by Provider: Jun 29, 2022 Time Seen by Provider: 11:20 History of Present Illness 61 year old male known to Dr. Angel for previous Marie wound debridement, consulted for erythema and foul discharge from debridement site noted in the ER. 61 year old male transferred from [facility] to [facility] for left sided DVT found on imaging. Patient has limited resources and lives in his van. He states that over the past few days, his legs have began to swell, and his left calf became erythematous and painful. Patient notes he has also had diarrhea for the past 6 weeks. Having two to three stools per day. These two things in combination are what made him decide to go to the hospital. Patient had surgical debridement of his scrotum with Dr. Angel in May. He states that he has not had much issue with this since then. He cannot see the site, but does try to wash it by feel. He states he has noted a little discharge, but no pain. He denies fever, chills, or excessive warmth around his scrotum. Patient has a past medical history of severe Marie's requiring orchiectomy. Patient also has known CKD. Patient states he does not take ambulatory medications regularly. Allergies and Home Medications Allergies Coded Allergies: codeine (Verified Allergy, Severe, Anaphylaxis, 04/11/22) Patient Home Medication List Home Medication List Reviewed: Yes Acetaminophen (Tylenol Extra Strength) 500 Mg Tablet, 1,000 MG PO Q8H PRN for PAIN-MILD (1-4), (Reported) Entered as Reported by: ADRIANA WILSON on 05/29/22 1008 Amoxicillin/Potassium Clav (Amox Tr-K Clv 875-125 mg Tab) 875 Mg-125 Mg Tablet, 1 EACH PO BID Prescribed by: GOMEZ LEYVA on 06/01/22 0957 Ascorbic Acid (Vitamin C) 500 Mg Tablet, 500 MG PO DAILY, (Reported) Entered as Reported by: ADRIANA WILSON on 05/29/22 1008 Cholecalciferol (Vitamin D3) (Vitamin D3) 50 Mcg (2000 Unit) Capsule, 50 MCG PO DAILY, (Reported) Entered as Reported by: ADRIANA WILSON on 05/29/22 1008 Magnesium Oxide (Magnesium) 400 Mg Magnesium Tablet, 400 MG PO DAILY, (Reported) Entered as Reported by: ADRIANA WILSON on 05/29/22 1008 Past Hejelrp-Rwsmqq-Cxyycp Hx Patient Social History Smoking Status: Current Everyday Smoker (PPD 49 years) Recent Hopitalizations: Yes Alcohol Use?: Yes (1/2 pint of vodka per day ) Substance type: Other Have you traveled recently?: No Surgeries History of Surgeries: Yes (TERP , groin I&D and debridement) Surgeries: Testicular (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) Respiratory History of Respiratory Disorde: No Cardiovascular History of Cardiac Disorders: Yes Cardiac Disorders: Cardiomyopathy, Chronic Edema/Swelling, Hypertension Neurological History of Neurological Disord: No Genitourinary History of Genitourinary Disor: Yes (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) Genitourinary Disorders: Benign Prostatic Hyperpl, Kidney Infection, Renal Failure Gastrointestinal History of Gastrointestinal Di: No Musculoskeletal History of Musculoskeletal Dis: No Endocrine History of Endocrine Disorders: No HEENT History of HEENT Disorders: No Loss of Vision: Denies Hearing Impairment: Denies Cancer History of Cancer: No Integumentary History of Skin or Integumenta: Yes Skin/Integumentary Disorders: Recent Skin Changes Family Medical History Significant Family History: Cancer, Diabetes Review of Systems-General Constitutional: No chills, No fever EENTM: No hearing loss, No vision loss Respiratory: No cough, No dyspnea on exertion Cardiovascular: No chest pain, No palpitations Gastrointestinal: No abdominal pain, No constipation; diarrhea; No nausea, No vomiting Genitourinary: No dysuria, No hematuria Skin: other (LE skin changes due to edema, erythema of left calf) Psychiatric/Neurological: Denies Headache, Denies Weakness Physical Exam-General Problems Physical Exam Vital Signs Vital Signs - First Documented Capillary Refill : Less Than 3 Seconds General Appearance: no apparent distress, obese HEENT: PERRL/EOMI Neck: non-tender, supple Respiratory: chest non-tender, no respiratory distress, no accessory muscle use Cardiovascular: regular rate, rhythm, no gallop Gastrointestinal: non tender, soft Rectal: deferred Genital/Rectal: other (debridement site left anterior scrotum starting slightly below base of penis. Erythematous, with some grannulation tissue and discharge. No streaking, not hot to touch. Probing with a swab, unable to find deep pocket of purrulent material or any tunneling. ) Extremities: calf tenderness (L), pedal edema, swelling (4+ pitting, patient states he used to have skinny ankles) Neurologic/Psychiatric: alert, oriented x 3 Skin: normal color, warm/dry Data Review Labs Laboratory Tests 06/29/22 07:27: White Blood Count 9.7, Red Blood Count 3.55L, Hemoglobin 12.9L, Hematocrit 38L, Mean Corpuscular Volume 108H, Mean Corpuscular Hemoglobin 36H, Mean Corpuscular Hemoglobin Concent 34, Red Cell Distribution Width 15.1H, Platelet Count 141, Mean Platelet Volume 10.6, Immature Granulocyte % (Auto) 2, Neutrophils (%) (Auto) 70, Lymphocytes (%) (Auto) 13, Monocytes (%) (Auto) 8, Eosinophils (%) (Auto) 5, Basophils (%) (Auto) 1, Neutrophils # (Auto) 6.8, Lymphocytes # (Auto) 1.3, Monocytes # (Auto) 0.8, Eosinophils # (Auto) 0.5H, Basophils # (Auto) 0.1, Immature Granulocyte # (Auto) 0.2H, Prothrombin Time 12.5, INR Comment 0.9, Activated Partial Thromboplast Time 27, D-Dimer 3.89H, Sodium Level 140, Potassium Level 5.6H, Chloride Level 111H, Carbon Dioxide Level 16L, Anion Gap 13, Blood Urea Nitrogen 45H, Creatinine 3.85H, Estimat Glomerular Filtration Rate 17, BUN/Creatinine Ratio 12, Glucose Level 96, Calcium Level 8.4L, Corrected Calcium 8.5, Magnesium Level 1.9, Total Bilirubin 0.3, Aspartate Amino Transf (AST/SGOT) 11, Alanine Aminotransferase (ALT/SGPT) 7, Alkaline Phosphatase 87, C-Reactive Protein 2.14H, Pro-B-Type Natriuretic Peptide 1184.0H , Total Protein 7.5, Albumin 3.9, Serum Alcohol < 10 06/29/22 07:55: Urine Color YELLOW, Urine Clarity CLOUDY, Urine pH 7.0, Urine Specific [place] 1.020, Urine Protein 2+H, Urine Glucose (UA) NEGATIVE, Urine Ketones NEGATIVE, Urine Nitrite POSITIVEH, Urine Bilirubin NEGATIVE, Urine Urobilinogen 0.2, Urine Leukocyte Esterase 3+H, Urine RBC (Auto) 2+H, Urine RBC 50-100H, Urine WBC 50- 100H, Urine Squamous Epithelial Cells 0-2, Urine Renal Epithelial Cells RARE, Urine Crystals NONE, Urine Bacteria MODERATEH, Urine Casts NONE, Urine Mucus NEGATIVE, Urine Culture Indicated YES 06/29/22 09:00: Lactic Acid Level 0.59 06/29/22 11:34: Glucometer 88 Radiology [facility], [place] NAME: [facility] REC#: [id number] PT STATUS: REG ER : 1960 PHYSICIAN: YESSI NINO MD ADMIT DATE: 06/29/22/ER FS Signed Date of Exam:06/29/22 CHEST 1 VIEW AP/PA ONLY INDICATION: Edema Frontal chest obtained at 0904 a.m. Heart is mildly enlarged. There is central vascular congestion. There is no focal infiltrate or pneumothorax or pleural fluid. There is no sign of interstitial edema. IMPRESSION: Mild cardiomegaly with central vascular prominence, without edema or infiltrate. Dictated by: Dictated on workstation # [id number] Dict: 06/29/22916 Trans: 06/29/22 1036 [place] [id number] Interpreted by: NICHOLE POND MD Electronically signed by: NICHOLE POND MD 06/29/22 1036 [facility], [place] NAME: [facility] REC#: [id number] PT STATUS: REG ER : 1960 PHYSICIAN: YESSI NINO MD ADMIT DATE: 06/29/22/ER FS Signed Date of Exam:06/29/22 US VENOUS LOWER EXT LT PROCEDURE: US left lower extremity venous. TECHNIQUE: Multiple real-time grayscale images were obtained over the left lower extremity in various projections. Additional duplex Doppler and color Doppler images were also obtained. INDICATION: Left leg pain and swelling There is thrombosis of the left superficial femoral vein and popliteal vein segments of the left leg. The common femoral vein was patent with good color filling and compressibility. IMPRESSION: There is occlusive deep vein thrombosis in the left superficial femoral and popliteal veins. Dictated by: Dictated on workstation # [id number] Dict: 06/29/22899 Trans: 06/29/22901 TCB [id number] Interpreted by: MILAN AC MD Electronically signed by: MILAN AC MD 06/29/22901 Assessment/Plan Assessment/Plan Assessment/Plan Left DVT - Popliteal and superficial femoral CHF CKD HTN Hyperkalemia Scrotal wound - previous site of debridement UTI Alcohol abuse disorder Tobaccism Plan Wound does have slight purulent drainage, but no signs of tunneling or abscess. Wound care consulted. Will stay conservative and treat with medical management. Patient was started on zosyn in the ED, this should provide good coverage for any potential bacterial infx. Will add some diflucan as wound is pretty moist. Will continue to monitor for any signs of worsening. LEONA ANGEL DO 06/29/22 1259: History of Present Illness History of Present Illness Time Seen by Provider: 12:14 History of Present Illness Surgery asked to see pt regarding scrotal abscess. Pt seen and examined, sitting up in chair eating. He does not appear to be in any distress; was admitted for DVT. He states no pain and is trying to keep it clean. Allergies and Home Medications Allergies Coded Allergies: codeine (Verified Allergy, Severe, Anaphylaxis, 04/11/22) Patient Home Medication List Home Medication List Reviewed: Yes Acetaminophen (Tylenol Extra Strength) 500 Mg Tablet, 1,000 MG PO Q8H PRN for PAIN-MILD (1-4), (Reported) Entered as Reported by: ADRIANA WILSON on 05/29/22 1008 Amoxicillin/Potassium Clav (Amox Tr-K Clv 875-125 mg Tab) 875 Mg-125 Mg Tablet, 1 EACH PO BID Prescribed by: GOMEZ LEYVA on 06/01/22 0957 Ascorbic Acid (Vitamin C) 500 Mg Tablet, 500 MG PO DAILY, (Reported) Entered as Reported by: ADRIANA WILSON on 05/29/22 1008 Cholecalciferol (Vitamin D3) (Vitamin D3) 50 Mcg (2000 Unit) Capsule, 50 MCG PO DAILY, (Reported) Entered as Reported by: ADRIANA WILSON on 05/29/22 1008 Magnesium Oxide (Magnesium) 400 Mg Magnesium Tablet, 400 MG PO DAILY, (Reported) Entered as Reported by: ADRIANA WILSON on 05/29/22 1008 Past Entaqps-Zbspsb-Griiwv Hx Patient Social History Smoking Status: Current Everyday Smoker (PPD 49 years) Alcohol Use?: Yes (1/2 pint of vodka per day ) Surgeries History of Surgeries: Yes (TERP , groin I&D and debridement) Respiratory History of Respiratory Disorde: No Cardiovascular History of Cardiac Disorders: Yes Cardiac Disorders: Cardiomyopathy, Chronic Edema/Swelling, Hypertension Neurological History of Neurological Disord: No Genitourinary History of Genitourinary Disor: Yes (marie's gangrene) Gastrointestinal History of Gastrointestinal Di: No Musculoskeletal History of Musculoskeletal Dis: No Endocrine History of Endocrine Disorders: No HEENT History of HEENT Disorders: No Loss of Vision: Denies Hearing Impairment: Denies Psychosocial History of Psychiatric Problem: No Family Medical History Significant Family History: Cancer, Diabetes Review of Systems-General Constitutional: No chills, No fever EENTM: No hearing loss, No vision loss Respiratory: No cough, No dyspnea on exertion Cardiovascular: No chest pain, No palpitations Gastrointestinal: No abdominal pain, No constipation; diarrhea; No nausea, No vomiting Genitourinary: No dysuria, No hematuria Musculoskeletal: joint pain, muscle stiffness Skin: No change in color, No change in hair/nails; other (LE skin changes due to edema, erythema of left calf) Psychiatric/Neurological: Denies Headache, Denies Weakness Physical Exam-General Problems Physical Exam General Appearance: no apparent distress, obese Eyes: Bilateral Eye PERRL, Bilateral Eye EOMI HEENT: pharynx normal; No scleral icterus (R), No scleral icterus (L) Neck: non-tender, supple Respiratory: chest non-tender, normal breath sounds, no respiratory distress, no accessory muscle use Cardiovascular: regular rate, rhythm, no gallop Gastrointestinal: non tender, soft Rectal: deferred Genital/Rectal: other (debridement site left anterior scrotum starting slightly below base of penis. Erythematous, with some grannulation tissue and discharge. No streaking, not hot to touch. Probing with a swab, unable to find deep pocket of purrulent material or any tunneling. 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 Wound care consulted. Will stay conservative and treat with medical management. Patient was started on zosyn in the ED, this should provide good coverage for any potential bacterial infx. Will add some diflucan as wound is pretty moist. Will continue to monitor for any signs of worsening. Supervisory-Addendum Brief Verification & Attestation Participated in pt care: history, MDM, physical Personally performed: exam, history, MDM, supervision of care Care discussed with: Medical Student Procedures: n/a Verification and Attestation of Medical Student E/M Service A medical student performed and documented this service. I then reviewed and verified all information documented by the medical student and made modifications to such information, when appropriate. I personally performed a physical exam, medical decision making and then discussed any differences between the notes and made revisions as necessary to create one note. Leona Angel , 06/29/22 , 13:05 BETSY RUFFIN Jun 29, 2022 12:05 LEONA ANGEL DO Jun 29, 2022 12:59
[2022-06-29] MEDS ORDERED: FLU QUADRIvalent (6 months+) 60 mcg/0.5 ml 2022-23 (Fluzone) IM ONE (12:30)
--- NOTE | 2022-06-29 12:32 | History & Physical-Hospitalist ---
History of Present Illness HPI/Chief Complaint Patient is a 61-year-old male known to me from recent admission due to lower extremity edema. He reports this is been going on for a few days. He was recently admitted with abscess and cellulitis of groin with surgical debridement. He was follow-up with [facility] for wound care but has missed multiple appointments per his report due to difficulties with transportation. He also has not seen Dr. Osborne since that discharge. In the ER his creatinine was found to be slightly elevated at 3.8 from his baseline around 3.2. He was also found to have a lower extremity DVT. He was admitted here for further management. Source: patient Date Seen 06/29/22 Time Seen by a Provider: 12:32 Attending Physician Renetta Osborne MD PCP Admitting Physician: Gomez Carreno MD Attending Physician: Gomez Carreno MD Referring Physician Date of Admission Jun 29, 2022 at 10:50 Home Medications & Allergies Home Medications Reviewed patient Home Medication Reconciliation performed by pharmacy medication reconciliations electrostatic powder coating technician and/or nursing. Patients Allergies have been reviewed. Allergies Allergies Coded Allergies codeine (Verified Allergy, Severe, Anaphylaxis, 04/11/22) Past Zpvssqw-[id number]-Akgvyp Hx Patient Social History Tobacco Use?: Yes Tobacco type used: Cigarettes Smoking Status: Current Everyday Smoker (PPD 49 years) Smokeless type used: Snuff Smokeless Tobacco Frequency: Former User Use of E-Cig and/or Vaping dev: No Substance use?: No Substance type: Other Additional substance use comme: Marijuana edibles Substance frequency: Couple times a week Alcohol Use?: Yes (1/2 pint of vodka per day ) Alcohol Frequency: Daily Pt feels they are or have been: No Immunizations Up To Date First/Initial COVID19 Vaccinat: Denies Second COVID19 Vaccination Hector: Denies Tetanus Booster (TDap): Unknown Hepatitis B: No Current Status Advance Directives: Yes Advance Directive Location: Unable to obtain copy Communicates: Verbally Primary Language: Slovak Preferred Spoken Language: Slovak Is interpretation needed?: No Implanted or Applied Medical D: None Past Medical History Surgeries: 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) Currently Using CPAP: No Currently Using BIPAP: No Cardiomyopathy, Chronic Edema/Swelling, Hypertension Benign Prostatic Hyperpl, Kidney Infection, Renal Failure Loss of Vision: Denies Hearing Impairment: Denies Recent Skin Changes Family Medical History Cancer, Diabetes Review of Systems Constitutional: No chills, No fever Respiratory: no symptoms reported Cardiovascular: see HPI Gastrointestinal: no symptoms reported Genitourinary: no symptoms reported Musculoskeletal: no symptoms reported Skin: see HPI Psychiatric/Neurological: No Symptoms Reported Physical Exam Physical Exam Vital Signs Vital Signs - First Documented Capillary Refill : Less Than 3 Seconds Height, Weight, BMI Height: '" Weight: lbs. oz. kg; 33.06 BMI Method: General Appearance: No Apparent Distress, Chronically ill, Obese HEENT: PERRL/EOMI, Moist Mucous Membranes; No Scleral Icterus (L), No Scleral Icterus (R) Neck: Normal Inspection, Supple Respiratory: Lungs Clear, No Accessory Muscle Use, No Respiratory Distress Cardiovascular: Regular Rate, Rhythm, No JVD, No Murmur Gastrointestinal: Normal Bowel Sounds, Non Tender, Soft Extremity: Normal Capillary Refill, Pedal Edema, Swelling Neurologic/Psychiatric: Alert, Oriented x3, Normal Mood/Affect Results Results/Procedures Labs Laboratory Tests 06/29/22 07:27 Patient resulted labs reviewed. Imaging: Reviewed Imaging Report Imaging [facility], [place] NAME: NICHOLE ZULETA [facility] REC#: [id number] PT STATUS: REG ER : 1960 PHYSICIAN: YESSI NINO MD ADMIT DATE: 06/29/22/ER FS Signed Date of Exam:06/29/22 US VENOUS LOWER EXT LT PROCEDURE: US left lower extremity venous. TECHNIQUE: Multiple real-time grayscale images were obtained over the left lower extremity in various projections. Additional duplex Doppler and color Doppler images were also obtained. INDICATION: Left leg pain and swelling There is thrombosis of the left superficial femoral vein and popliteal vein segments of the left leg. The common femoral vein was patent with good color filling and compressibility. IMPRESSION: There is occlusive deep vein thrombosis in the left superficial femoral and popliteal veins. Dictated by: Dictated on workstation # [id number] Dict: 06/29/22 0900 Trans: 06/29/22 09 TC [id number] Interpreted by: MILAN AC MD Electronically signed by: MILAN AC MD 06/29/22 09 [facility] [place], [place] NAME: NICHOLE ZULETA [facility] REC#: [id number] PT STATUS: REG ER : 1960 PHYSICIAN: YESSI NINO MD ADMIT DATE: 06/29/22/ER FS Signed Date of Exam:06/29/22 CHEST 1 VIEW AP/PA ONLY INDICATION: Edema Frontal chest obtained at 0904 a.m. Heart is mildly enlarged. There is central vascular congestion. There is no focal infiltrate or pneumothorax or pleural fluid. There is no sign of interstitial edema. IMPRESSION: Mild cardiomegaly with central vascular prominence, without edema or infiltrate. Dictated by: Dictated on workstation # [id number] Dict: 06/29/22916 Trans: 06/29/22 1036 [place] [id number] Interpreted by: NICHOLE POND MD Electronically signed by: NICHOLE POND MD 06/29/22 1036 Assessment/Plan Admission Diagnosis INNA Admission Status: Observation Assessment and Plan INNA on CKD 4 baseline creatinine 3.5 up to 3.85 today IVF Check in AM DVT No history of DVT lovenox given in ER Start Xarelto tonight Scrotal wound UTI Dr Elias consulted, appreciate recs Wound care consulted veterans services specialist consulted for homelessness and to assistance with followup with [facility] for wound care Continue Zosyn Alcohol abuse Tobacco abuse MOnitor for withdrawals but was here for several days last month with no issues Folic Acid and MTV DVT ppx: Already on Xarelto as above GOMEZ CARRENO MD Jun 29, 2022 12:32
[2022-06-29 15:22] VITALS: BP 131/82
[2022-06-29] MEDS: PIPERACILLIN SODIUM/TAZOBACTAM 4.5 GM in NS (IVPB) 100 ML IV SCH (15:30)
[2022-06-29] MEDS: fluCOnazole (DIFLUCAN) 100 MG TAB PO SCH (15:30)
[2022-06-29] MEDS: RIVAROXABAN 15 MG TABLET (XARELTO) PO SCH (18:27)
[2022-06-29 19:52] VITALS: BP 134/78
[2022-06-29] MEDS: MICONAZOLE 2% POWDER (DESENEX AF) 90 GM TOP SCH ×2 (21:15→22:20)
[2022-06-30] VITALS: BP 136/80
[2022-06-30] MEDS: PIPERACILLIN SODIUM/TAZOBACTAM 4.5 GM in NS (IVPB) 100 ML IV SCH ×3 (00:10→15:55)
[2022-06-30 04:00] VITALS: BP 122/69
[2022-06-30] MEDS: inSUlin ASPART (NovoLOG) 1 UNIT/0.01 ML (CHARGE PER UNIT) SC SCH (05:19)
[2022-06-30] MEDS: NS IV 1000 ML 1,000 ML IV SCH ×2 (05:22→06:35)
[2022-06-30 05:30] LABS: MEAN PLATELET VOLUME 10.6 fL (9.0-12.2)
[2022-06-30 05:32] LABS: HEMOGLOBIN 10.7 g/dL (13.3-17.7); WHITE BLOOD COUNT 9.2 10^3/uL (4.3-11.0)
[2022-06-30 05:50] LABS: POTASSIUM 5.3 MMOL/L (3.6-5.0)
[2022-06-30 05:52] LABS: CALCIUM 7.9 MG/DL (8.5-10.1)
[2022-06-30 05:56] LABS: CREATININE SERUM 4.06 MG/DL (0.60-1.30)
[2022-06-30] MEDS: RIVAROXABAN 15 MG TABLET (XARELTO) PO SCH ×2 (06:34→19:31)
[2022-06-30 07:14] VITALS: BP 139/79
--- NOTE | 2022-06-30 08:12 | Progress Note - Surgery ---
KAYDEN LAUREANO 06/30/22 0812: Subjective Date Seen by a Provider: Jun 30, 2022 Time Seen by a Provider: 08:06 Subjective/Events-last exam Patient is sitting up in bed comfortably Pain still in his left leg, says swelling is improved but still present Denies any scrotal pain, N/V, chills or fever No other complaints at this time Is eating well Bowel and bladder are moving appropriately, but states bowel movements have been loose and dark, but denies melana Labs reviewed Focused Exam Lactate Level 06/29/22 09:00: Lactic Acid Level 0.59 Objective Exam Vital Signs Date Time Temp Pulse Resp B/P (MAP) Pulse Ox O2 Delivery O2 Flow Rate FiO2 06/30/22 07:14 36.7 82 18 139/79 (99) 96 Room Air 06/30/22 07:00 80 06/30/22 04:00 37.1 89 16 122/69 (86) 98 Room Air 06/30/22 01:00 96 06/30/22 00:00 37.4 91 16 136/80 (98) 95 Room Air 06/29/22 21:00 Room Air 06/29/22 19:52 37.0 79 18 134/78 (96) 97 Room Air 06/29/22 19:00 80 06/29/22 15:22 36.5 68 18 131/82 (98) Room Air 06/29/22 12:47 79 06/29/22 11:57 Room Air 06/29/22 11:14 36.6 65 17 149/89 (109) 92 Room Air 06/29/22 09:55 36.1 78 18 127/76 100 Room Air I & O 06/30/22 07:00 Intake Total 2086 ml Output Total 2040 ml Balance 46 ml Capillary Refill : Less Than 3 Seconds General Appearance: No Apparent Distress, WD/WN HEENT: PERRL/EOMI, Normal ENT Inspection Neck: Normal Inspection, Supple Respiratory: Lungs Clear, Normal Breath Sounds, No Accessory Muscle Use, No Respiratory Distress Cardiovascular: Regular Rate, Rhythm, No Murmur, Other (Bilateral lower extremity edema. Right pedal pulse stronger than left.) Peripheral Pulses: 2+ Radial Pulses (R), 2+ Radial Pulses (L) Gastrointestinal: non tender, soft Extremity: Normal Range of Motion, Calf Tenderness (Bilaterally), Other (Bilateral pitting lower extremity edema, left greater than right. Warmth and tenderness to the left calf with mild tenderness to palpation) Neurologic/Psychiatric: Alert, Oriented x3, No Motor/Sensory Deficits, Normal Mood/Affect Skin: Normal Color, Warm/Dry, Other (Scrotom has 2 cm wound from prior debridement with very minimal serosnginuous discharge noted ) Lymphatic: No Adenopathy Results Lab Laboratory Tests 06/29/22 09:00: Lactic Acid Level 0.59 06/29/22 11:34: Glucometer 88 06/29/22 15:27: Glucometer 84 06/29/22 19:51: Glucometer 98 06/30/22 05:10: White Blood Count 9.2, Red Blood Count 3.03L, Hemoglobin 10.7L, Hematocrit 33L, Mean Corpuscular Volume 108H, Mean Corpuscular Hemoglobin 35H, Mean Corpuscular Hemoglobin Concent 33, Red Cell Distribution Width 14.8H, Platelet Count 112L, Mean Platelet Volume 10.6, Percent Immature Platelet Fraction 3.1, Sodium Level 141, Potassium Level 5.3H, Chloride Level 118H, Carbon Dioxide Level 13L, Anion Gap 10, Blood Urea Nitrogen 48H, Creatinine 4.06H, Estimat Glomerular Filtration Rate 16, BUN/Creatinine Ratio 12, Glucose Level 80, Calcium Level 7.9L 06/30/22 05:13: Glucometer 74 Assessment/Plan Assessment/Plan Assessment/Plan LLE DVT - Popliteal and superficial femoral Acute on chronic CKD4 Scrotal wound - previous site of debridement CHF HTN Hyperkalemia UTI Alcohol abuse disorder Tobacco abuse Plan Monitor wound- Wound care consulted Continue Abx and Fluconazole Continue supportive care Medical Management ODILON DE SOUZA DO 06/30/22 1455: Subjective Subjective/Events-last exam Patient doing okay. Swelling improving he states. Scrotal wound no complaints, he states it has continued to improve. Denies any n/v fever sweats chills shortness of breath or chest pain. Objective Exam General Appearance: No Apparent Distress, WD/WN HEENT: PERRL/EOMI, Normal ENT Inspection Neck: Normal Inspection, Supple Respiratory: Chest Non Tender, No Accessory Muscle Use, No Respiratory Distress Cardiovascular: No JVD, Other (Bilateral lower extremity edema. Right pedal pulse stronger than left.) Gastrointestinal: non tender, soft Extremity: Calf Tenderness (Bilaterally), Other (Bilateral pitting lower extremity edema, left greater than right. Warmth and tenderness to the left calf with mild tenderness to palpation) Neurologic/Psychiatric: Alert, Oriented x3, Normal Mood/Affect Skin: Normal Color, Warm/Dry, Other (Scrotom has 2 cm wound from prior debridement with very minimal serosnginuous discharge ) Lymphatic: No Adenopathy Assessment/Plan Assessment/Plan Assessment/Plan LLE DVT - Popliteal and superficial femoral Acute on chronic CKD4 Scrotal wound - previous site of debridement CHF HTN Hyperkalemia UTI Alcohol abuse disorder Tobacco abuse Monitor wound-daily dressing changes Continue Abx and Fluconazole Continue supportive care Medical Management Supervisory-Addendum Brief Verification & Attestation Participated in pt care: history, MDM, physical Personally performed: exam, history, MDM, supervision of care Care discussed with: Medical Student Procedures: n/a Results interpretation: Verified all documentation Verification and Attestation of Medical Student E/M Service A medical student performed and documented this service in my presence. I reviewed and verified all information documented by the medical student and made modifications to such information, when appropriate. I personally performed the physical exam and medical decision making. Odilon De Souza, Jun 30, 2022,14:55 KAYDEN LAUREANO Jun 30, 2022 08:12 ODILON DE SOUZA DO Jun 30, 2022 14:55
[2022-06-30] MEDS: MICONAZOLE 2% POWDER (DESENEX AF) 90 GM TOP SCH ×2 (08:45→21:12)
[2022-06-30] MEDS: FOLIC ACID 1 MG TAB PO SCH (08:45)
[2022-06-30] MEDS: fluCOnazole (DIFLUCAN) 100 MG TAB PO SCH (08:45)
[2022-06-30] MEDS ORDERED: ENOXAPARIN 100 MG/1 ML (LOVENOX) SYR SC SCH (09:00)
[2022-06-30] MEDS ORDERED: ACETAMINOPHEN 500 MG TAB (TYLENOL) PO PRN (09:30)
--- NOTE | 2022-06-30 09:55 | Progress Note - Hospitalist ---
Subjective HPI/CC On Admission Date Seen by Provider: Jun 30, 2022 Patient is a 61-year-old male known to me from recent admission due to lower extremity edema. He reports this is been going on for a few days. He was recently admitted with abscess and cellulitis of groin with surgical debridement. He was follow-up with [facility] for wound care but has missed multiple appointments per his report due to difficulties with trans portation. He also has not seen Dr. Osborne since that discharge. In the ER his creatinine was found to be slightly elevated at 3.8 from his baseline around 3.2. He was also found to have a lower extremity DVT. He was admitted here for further management. Subjective/Events-last exam Pt reports doing well. No complaints. Discussed lab results and need for another night in the hospital. Focused Exam Lactate Level 06/29/22 09:00: Lactic Acid Level 0.59 Objective Exam Vital Signs Vital Signs Date Time Temp Pulse Resp B/P (MAP) Pulse Ox O2 Delivery O2 Flow Rate FiO2 06/30/22 09:00 96 Room Air 06/30/22 07:14 36.7 82 18 139/79 (99) Capillary Refill : Less Than 3 Seconds General Appearance: No Apparent Distress, Chronically ill, Obese Respiratory: Lungs Clear, No Respiratory Distress Cardiovascular: Regular Rate, Rhythm, No Murmur Neurologic/Psychiatric: Alert, Oriented x3 Results/Procedures Lab Laboratory Tests 06/30/22 05:10 Patient resulted labs reviewed. Imaging: Reviewed Imaging Report Assessment/Plan Assessment and Plan Assess & Plan/Chief Complaint INNA on CKD 4 baseline creatinine 3.5 up to 4.06 today IVF Trend UOP adequate Add sodium bicarb tabs DVT No history of DVT Continue Xarelto tonight Scrotal wound UTI Dr Elias consulted, appreciate recs Wound care consulted new client banking services clerk consulted for homelessness and to assistance with followup with [facility] for wound care Continue Zosyn Alcohol abuse Tobacco abuse Monitor for withdrawals but was here for several days last month with no issues Folic Acid and MTV DVT ppx: Already on Xarelto as above GOMEZ LEYVA MD Jun 30, 2022 9:55 am
[2022-06-30] MEDS ORDERED: MULTIVIT W/MINERALS TAB (THERAGRAN M) PO NR (10:00)
[2022-06-30] MEDS: 1/2 NS IV SOLUTION 1,000 ML IV SCH ×2 (10:21→20:05)
[2022-06-30 11:37] VITALS: BP 136/83
[2022-06-30] MEDS: SODIUM BICARBONATE 650 MG TABLET PO SCH ×2 (13:29→21:11)
[2022-06-30 15:13] VITALS: BP 152/84
[2022-06-30 19:15] VITALS: BP 153/91
[2022-06-30] MEDS: HYPOCHLOROUS ACID/NaCl (VASHE) 250 ML IR PRN (21:11)
[2022-07-01] VITALS (7 sets, daily range): BP systolic 127–146; BP diastolic 71–76
[2022-07-01] MEDS: PIPERACILLIN SODIUM/TAZOBACTAM 4.5 GM in NS (IVPB) 100 ML IV SCH ×4 (00:36→23:28)
[2022-07-01] MEDS: 1/2 NS IV SOLUTION 1,000 ML IV SCH ×2 (01:34→08:39)
[2022-07-01 05:48] LABS: HEMOGLOBIN 10.7 g/dL (13.3-17.7); MEAN PLATELET VOLUME 10.4 fL (9.0-12.2); WHITE BLOOD COUNT 8.8 10^3/uL (4.3-11.0)
[2022-07-01 06:11] LABS: CREATININE SERUM 3.73 MG/DL (0.60-1.30); POTASSIUM 4.9 MMOL/L (3.6-5.0)
[2022-07-01] MEDS: RIVAROXABAN 15 MG TABLET (XARELTO) PO SCH ×2 (06:19→18:23)
[2022-07-01] MEDS: MULTIVIT W/MINERALS TAB (THERAGRAN M) PO SCH (06:20)
--- NOTE | 2022-07-01 08:12 | Progress Note - Surgery ---
KAYDEN LAUREANO 07/01/22 0812: Subjective Date Seen by a Provider: Jul 01, 2022 Time Seen by a Provider: 08:07 Subjective/Events-last exam Patient is laying in bed comfortably Pain in left leg is improved, swelling in leg still present but improved from yesterday Denies any scrotal pain, N/V, chills or fever No other complaints at this time Is eating well Bowel and bladder are moving appropriately, states bowel movements are still dark and loose Labs reviewed Review of Systems General: No Chills, No Night Sweats HEENT: No Visual Changes, No Eye Pain Pulmonary: No Dyspnea, No Cough Cardiovascular: No: Chest Pain, Palpitations Gastrointestinal: No: Nausea, Vomiting, Abdominal Pain Genitourinary: No Dysuria, No Frequency Musculoskeletal: No: neck pain, shoulder pain Neurological: No: Weakness, Numbness Focused Exam Lactate Level 06/29/22 09:00: Lactic Acid Level 0.59 Objective Exam Vital Signs Date Time Temp Pulse Resp B/P (MAP) Pulse Ox O2 Delivery O2 Flow Rate FiO2 07/01/22 07:12 37.2 85 20 137/75 (95) 98 Room Air 07/01/22 07:00 86 07/01/22 03:40 36.9 86 16 135/75 (95) 97 Room Air 07/01/22 01:00 84 07/01/22 00:00 36.4 82 16 146/73 (97) 98 Room Air 06/30/22 21:00 Room Air 06/30/22 19:15 37.0 78 20 153/91 (111) 99 Room Air 06/30/22 19:00 84 06/30/22 15:13 36.4 66 20 152/84 (106) 99 Room Air 06/30/22 12:48 83 06/30/22 11:37 36.5 74 20 136/83 (100) 97 Room Air 06/30/22 09:00 96 Room Air I & O 07/01/22 07:00 Intake Total 4670 ml Output Total 2575 ml Balance 2095 ml Capillary Refill : Less Than 3 Seconds General Appearance: No Apparent Distress, WD/WN HEENT: PERRL/EOMI, Normal ENT Inspection Neck: Normal Inspection, Supple Respiratory: Chest Non Tender, Lungs Clear, No Accessory Muscle Use, No Respiratory Distress Cardiovascular: Regular Rate, Rhythm, No JVD, No Murmur, Other Peripheral Pulses: 2+ Radial Pulses (R), 2+ Radial Pulses (L) Gastrointestinal: non tender, soft Extremity: Normal Range of Motion, Calf Tenderness (Left calf tender to palpation), Other (Bilateral pitting lower extremity edema, left greater than right. Tenderness to the left calf with mild tenderness to palpation. ) Neurologic/Psychiatric: Alert, Oriented x3, Normal Mood/Affect Skin: Normal Color, Warm/Dry, Other (Scrotom has 2 cm wound from prior debridement with very minimal serosnginuous discharge at this time) Lymphatic: No Adenopathy Results Lab Laboratory Tests 07/01/22 05:15: White Blood Count 8.8, Red Blood Count 2.99L, Hemoglobin 10.7L, Hematocrit 32L, Mean Corpuscular Volume 107H, Mean Corpuscular Hemoglobin 36H, Mean Corpuscular Hemoglobin Concent 33, Red Cell Distribution Width 14.9H, Platelet Count 121L, Mean Platelet Volume 10.4, Percent Immature Platelet Fraction 2.6, Sodium Level 138, Potassium Level 4.9, Chloride Level 116H, Carbon Dioxide Level 13L, Anion Gap 9, Blood Urea Nitrogen 43H, Creatinine 3.73H, Estimat Glomerular Filtration Rate 17, BUN/Creatinine Ratio 12, Glucose Level 86, Calcium Level 8.0L Microbiology 06/29/22 Blood Culture - Preliminary, Resulted No growth 06/29/22 Urine Culture - Preliminary, Resulted Gram Negative Bacillus 1 Proteus species Assessment/Plan Assessment/Plan Assessment/Plan LLE DVT - Popliteal and superficial femoral Acute on chronic CKD4 Scrotal wound - previous site of debridement CHF HTN Hyperkalemia UTI Alcohol abuse disorder Tobacco abuse Monitor wound-daily dressing changes Continue Abx and Miconazole Continue supportive care Medical Management DOILON DE SOUZA DO 07/01/22 1200: Subjective Subjective/Events-last exam Patient doing well. Swelling left leg improving. On Xarelto. Scrotal wound he reports no issue. Denies n/v fever sweats chills shortness of breath or chest pain. Objective Exam General Appearance: No Apparent Distress, WD/WN HEENT: PERRL/EOMI, Normal ENT Inspection Neck: Normal Inspection, Supple Respiratory: Chest Non Tender, No Accessory Muscle Use, No Respiratory Distress Cardiovascular: Regular Rate, Rhythm, No JVD Gastrointestinal: non tender, soft Extremity: Normal Range of Motion, Calf Tenderness (Left calf tender to palpation-minimal), Other (Bilateral pitting lower extremity edema, left greater than right. Tenderness to the left calf with mild tenderness to palpation. ) Neurologic/Psychiatric: Alert, Oriented x3 Skin: Normal Color, Warm/Dry, Other (Scrotom has 2 cm wound from prior debridement with very minimal serosnginuous discharge at this time) Lymphatic: No Adenopathy Assessment/Plan Assessment/Plan Assessment/Plan LLE DVT - Popliteal and superficial femoral Acute on chronic CKD4 Scrotal wound - previous site of debridement CHF HTN Hyperkalemia UTI Alcohol abuse disorder Tobacco abuse Monitor wound-daily dressing changes Continue Abx and Miconazole Continue supportive care Medical Management Supervisory-Addendum Brief Verification & Attestation Participated in pt care: history, MDM, physical Personally performed: exam, history, MDM, supervision of care Care discussed with: Medical Student Procedures: n/a Results interpretation: Verified all documentation Verification and Attestation of Medical Student E/M Service A medical student performed and documented this service in my presence. I reviewed and verified all information documented by the medical student and made modifications to such information, when appropriate. I personally performed the physical exam and medical decision making. Odilon De Souza, Jul 01, 2022,11:59 KAYDEN LAUREANO Jul 01, 2022 08:12 ODILON DE SOUZA DO Jul 01, 2022 12:00
[2022-07-01] MEDS: SODIUM BICARBONATE 650 MG TABLET PO SCH ×3 (08:25→20:12)
[2022-07-01] MEDS: FOLIC ACID 1 MG TAB PO SCH (08:25)
[2022-07-01] MEDS: fluCOnazole (DIFLUCAN) 100 MG TAB PO SCH (08:25)
[2022-07-01] MEDS: MICONAZOLE 2% POWDER (DESENEX AF) 90 GM TOP SCH ×2 (08:25→20:12)
[2022-07-01] MEDS: HYPOCHLOROUS ACID/NaCl (VASHE) 250 ML IR PRN (08:27)
--- NOTE | 2022-07-01 10:10 | Progress Note - Hospitalist ---
Subjective HPI/CC On Admission Date Seen by Provider: Jul 01, 2022 Patient is a 61-year-old male known to me from recent admission due to lower extremity edema. He reports this is been going on for a few days. He was recently admitted with abscess and cellulitis of groin with surgical debridement. He was follow-up with [facility] for wound care but has missed multiple appointments per his report due to difficulties with trans portation. He also has not seen Dr. Osborne since that discharge. In the ER his creatinine was found to be slightly elevated at 3.8 from his baseline around 3.2. He was also found to have a lower extremity DVT. He was admitted here for further management. Subjective/Events-last exam Pt reports Focused Exam Lactate Level 06/29/22 09:00: Lactic Acid Level 0.59 Objective Exam Vital Signs Vital Signs Date Time Temp Pulse Resp B/P (MAP) Pulse Ox O2 Delivery O2 Flow Rate FiO2 07/01/22 09:00 98 Room Air 07/01/22 07:12 37.2 85 20 137/75 (95) Capillary Refill : Less Than 3 Seconds Results/Procedures Lab Laboratory Tests 07/01/22 05:15 Patient resulted labs reviewed. Imaging: Reviewed Imaging Report Assessment/Plan Assessment and Plan Assess & Plan/Chief Complaint INNA on CKD 4 baseline creatinine 3.5 up to 4.06 today IVF Trend UOP adequate Add sodium bicarb tabs DVT No history of DVT Continue Xarelto tonight Scrotal wound UTI Dr Elias consulted, appreciate recs Wound care consulted manager social services consulted for homelessness and to assistance with followup with [facility] for wound care Continue Zosyn Alcohol abuse Tobacco abuse Monitor for withdrawals but was here for several days last month with no issues Folic Acid and MTV DVT ppx: Already on Xarelto as above GOMEZ LEYVA MD Jul 01, 2022 10:10
--- NOTE | 2022-07-01 10:24 | Progress Note - Hospitalist ---
Subjective HPI/CC On Admission Date Seen by Provider: Jul 01, 2022 Patient is a 61-year-old male known to me from recent admission due to lower extremity edema. He reports this is been going on for a few days. He was recently admitted with abscess and cellulitis of groin with surgical debridement. He was follow-up with [facility] for wound care but has missed multiple appointments per his report due to difficulties with trans portation. He also has not seen Dr. Osborne since that discharge. In the ER his creatinine was found to be slightly elevated at 3.8 from his baseline around 3.2. He was also found to have a lower extremity DVT. He was admitted here for further management. Subjective/Events-last exam Patient reports doing well. We discussed his plan for discharge and he does not have transportation at this time. He states his only available family member with a car lives in [place]. He also states he does not have money to pickle maker his prescriptions. Discussed plan for discharge tomorrow and to have social work discuss plans for transportation and prescription assistance. He request prescriptions to be sent to [facility] so that he can get them for free but he has never actually been seen there outside of as a walk-in so I am unsure if they can fill his prescriptions for him. We discussed very frankly the importance of following up with the physicians and resources with the marriage and family social worker has set up for him as he did not keep his appointments after his last discharge. Focused Exam Lactate Level 06/29/22 09:00: Lactic Acid Level 0.59 Objective Exam Vital Signs Vital Signs Date Time Temp Pulse Resp B/P (MAP) Pulse Ox O2 Delivery O2 Flow Rate FiO2 07/01/22 09:00 98 Room Air 07/01/22 07:12 37.2 85 20 137/75 (95) Capillary Refill : Less Than 3 Seconds General Appearance: No Apparent Distress, WD/WN Cardiovascular: Regular Rate, Rhythm, No Murmur Gastrointestinal: Normal Bowel Sounds, Non Tender, Soft Neurologic/Psychiatric: Alert, Oriented x3 Results/Procedures Lab Laboratory Tests 07/01/22 05:15 Patient resulted labs reviewed. Imaging: Reviewed Imaging Report Assessment/Plan Assessment and Plan Assess & Plan/Chief Complaint INNA on CKD 4 Load Tester back to baseline DC IVF Continue sodium bicarb tabs DVT No history of DVT Continue Xarelto Scrotal wound UTI Dr Elias consulted, appreciate recs Wound care consulted automotive services manager consulted for homelessness and to assistance with followup with [facility] for wound care Continue Zosyn and Diflucan Alcohol abuse Tobacco abuse Monitor for withdrawals but was here for several days last month with no issues Folic Acid and MTV DVT ppx: Already on Xarelto as above GOMEZ LEYVA MD Jul 01, 2022 10:24
[2022-07-02 03:29] VITALS: BP 133/84
[2022-07-02 05:25] LABS: HEMOGLOBIN 11.8 g/dL (13.3-17.7)
[2022-07-02 05:26] LABS: MEAN PLATELET VOLUME 9.9 fL (9.0-12.2); WHITE BLOOD COUNT 9.5 10^3/uL (4.3-11.0)
[2022-07-02 05:43] LABS: POTASSIUM 5.2 MMOL/L (3.6-5.0)
[2022-07-02 05:44] LABS: CALCIUM 8.4 MG/DL (8.5-10.1)
[2022-07-02 05:48] LABS: CREATININE SERUM 3.86 MG/DL (0.60-1.30)
[2022-07-02] MEDS: MULTIVIT W/MINERALS TAB (THERAGRAN M) PO SCH (06:14)
[2022-07-02] MEDS: RIVAROXABAN 15 MG TABLET (XARELTO) PO SCH (06:14)
--- NOTE | 2022-07-02 07:58 | Progress Note - Surgery ---
BETSY RUFFIN 07/02/22 0758: Subjective Date Seen by a Provider: Jul 02, 2022 Time Seen by a Provider: 07:25 Subjective/Events-last exam Patient resting comfortably in bed. States he is not having any scrotal pain/drainage. States that he was told yesterday that it is looking better. Patient has no other concerns today. Review of Systems General: No Chills, No Night Sweats HEENT: No Head Aches, No Visual Changes Pulmonary: No Dyspnea, No Cough Cardiovascular: No: Chest Pain, Palpitations Gastrointestinal: No: Nausea, Vomiting, Abdominal Pain Genitourinary: No Dysuria, No Frequency Neurological: No: Weakness, Numbness Focused Exam Lactate Level 06/29/22 09:00: Lactic Acid Level 0.59 Objective Exam Vital Signs Date Time Temp Pulse Resp B/P (MAP) Pulse Ox O2 Delivery O2 Flow Rate FiO2 07/02/22 03:29 36.8 84 16 133/84 (100) 97 Room Air 07/02/22 01:00 91 07/01/22 23:50 36.8 84 16 127/75 (92) 98 Room Air 07/01/22 20:23 Room Air 07/01/22 20:06 37.0 80 18 142/71 (94) 100 Room Air 07/01/22 19:00 79 07/01/22 15:50 36.9 77 20 139/76 (97) 100 Room Air 07/01/22 12:56 72 07/01/22 11:41 36.6 64 18 140/76 (97) 100 Room Air 07/01/22 09:00 98 Room Air I & O 07/02/22 07:00 Intake Total 3240 ml Output Total 1800 ml Balance 1440 ml Capillary Refill : Less Than 3 Seconds General Appearance: No Apparent Distress, WD/WN HEENT: PERRL/EOMI Neck: Normal Inspection, Supple Respiratory: Chest Non Tender, Lungs Clear (anterior posts only), No Accessory Muscle Use, No Respiratory Distress Cardiovascular: Regular Rate, Rhythm, No Murmur Peripheral Pulses: 2+ Radial Pulses (R), 2+ Radial Pulses (L) Gastrointestinal: non tender, soft Extremity: Normal Range of Motion, Swelling, Other (Bilateral pitting lower extremity edema, left greater than right. Tenderness to the left calf with mild tenderness to palpation. ) Neurologic/Psychiatric: Alert, Oriented x3 Skin: Normal Color, Warm/Dry, Other (Scrotom has 2 cm wound from prior debridement. Wound clean w/o drainage. Still moist) Lymphatic: No Adenopathy Results Lab Laboratory Tests 07/02/22 05:15: White Blood Count 9.5, Red Blood Count 3.35L, Hemoglobin 11.8L, Hematocrit 36L, Mean Corpuscular Volume 107H, Mean Corpuscular Hemoglobin 35H, Mean Corpuscular Hemoglobin Concent 33, Red Cell Distribution Width 14.9H, Platelet Count 137, Mean Platelet Volume 9.9, Percent Immature Platelet Fraction 2.5, Sodium Level 140, Potassium Level 5.2H, Chloride Level 118H, Carbon Dioxide Level 12L, Anion Gap 10, Blood Urea Nitrogen 45H, Creatinine 3.86H, Estimat Glomerular Filtration Rate 17, BUN/Creatinine Ratio 12, Glucose Level 93, Calcium Level 8.4L Microbiology 06/29/22 Blood Culture - Preliminary, Resulted No growth 06/29/22 Urine Culture - Preliminary, Resulted Pseudomonas aeruginosa Susceptibility To Follow Proteus mirabilis Assessment/Plan Assessment/Plan Assessment/Plan LLE DVT - Popliteal and superficial femoral Acute on chronic CKD4 Scrotal wound - previous site of debridement CHF HTN Hyperkalemia UTI Alcohol abuse disorder Tobacco abuse Monitor wound- improving, daily dressing changes Continue Abx and Miconazole Continue supportive care Medical Management WAN ELIAS DO 07/02/22 1158: Subjective Time Seen by a Provider: 11:29 Subjective/Events-last exam Pt without complaints and would like to go home. Review of Systems Pulmonary: No Dyspnea, No Cough Cardiovascular: No: Chest Pain, Palpitations Gastrointestinal: No: Nausea, Vomiting, Abdominal Pain Objective Exam General Appearance: No Apparent Distress, Obese HEENT: PERRL/EOMI Respiratory: Lungs Clear (anterior posts only), Normal Breath Sounds, No Accessory Muscle Use, No Respiratory Distress Cardiovascular: Regular Rate, Rhythm, No Murmur Gastrointestinal: non tender, soft Neurologic/Psychiatric: Alert, Oriented x3 Assessment/Plan Assessment/Plan Assessment/Plan LLE DVT - Popliteal and superficial femoral Acute on chronic CKD4 Scrotal wound - previous site of debridement CHF HTN Hyperkalemia UTI Alcohol abuse disorder Tobacco abuse Monitor wound- improving, daily dressing changes Continue Abx and Miconazole Continue supportive care Medical Management Supervisory-Addendum Brief Verification & Attestation Participated in pt care: history, MDM, physical Personally performed: exam, history, MDM, supervision of care Care discussed with: Medical Student Procedures: n/a Verification and Attestation of Medical Student E/M Service A medical student performed and documented this service. I then reviewed and verified all information documented by the medical student and made mod ifications to such information, when appropriate. I personally performed a physical exam, medical decision making and then discussed any differences between the notes and made revisions as necessary to create one note. Wan Elias , 07/02/22 , 11:58 BETSY RUFFIN Jul 02, 2022 07:58 WAN ELIAS DO Jul 02, 2022 11:58
[2022-07-02 08:30] VITALS: BP 172/93
[2022-07-02] MEDS: fluCOnazole (DIFLUCAN) 100 MG TAB PO SCH (08:40)
[2022-07-02] MEDS: MICONAZOLE 2% POWDER (DESENEX AF) 90 GM TOP SCH (08:40)
[2022-07-02] MEDS: PIPERACILLIN SODIUM/TAZOBACTAM 4.5 GM in NS (IVPB) 100 ML IV SCH (08:40)
[2022-07-02] MEDS: FOLIC ACID 1 MG TAB PO SCH (08:40)
[2022-07-02] MEDS: SODIUM BICARBONATE 650 MG TABLET PO SCH (08:40)
[2022-07-02 11:15] VITALS: BP 155/84
[2022-07-02] MEDS ORDERED: NF-SODBICA PO ×2 (11:17→11:22)
[2022-07-02] MEDS ORDERED: LEVO750T PO ×2 (11:17→11:22)
[2022-07-02] MEDS ORDERED: FLUC100T10 PO ×2 (11:17→11:22)
[2022-07-02] MEDS ORDERED: RIVA1TAB PO ×2 (11:17→11:22)
--- NOTE | 2022-07-02 17:44 | Discharge Summary ---
Discharge Summary Hospital Course Was the Problem List Reviewed?: Yes Problems/Dx: (1) INNA (acute kidney injury) (2) Chronic renal failure, stage 4 (severe) Status: Acute (3) Left leg DVT Status: Acute Qualifiers: Qualified Codes: I82.402 - Acute embolism and thrombosis of unspecified deep veins of left lower extremity (4) Wound of left groin Status: Acute Qualifiers: Qualified Codes: S31.109A - Unspecified open wound of abdominal wall, unspecified quadrant without penetration into peritoneal cavity, initial encounter Hospital Course Date of Admission: Jun 29, 2022 at 10:50 Admission Diagnosis : INNA on CKD, DVT Family Physician/Provider: Renetta Osborne MD Date of Discharge: 07/02/22 Discharge Diagnosis: INNA on CKD, DVT Hospital Course: Johan Dodson is a 61 year old male who was admitted with INNA on CKD. He was given IV fluids and his kidney function improved. He was started on sodium bicarbonate. He also had a newly diagnosed DVT and was started on Xarelto. He grigbsy s a chronic scrotal wound and surgery was consulted. He was treated with IV antibiotics and then transitioned to every other day oral Levaquin. He needs to follow up with wound care. He needs to establish with [facility]. Social work assisted with his medication and transportation issues. He was discharged home in stable condition. Labs and Pending Lab Test: Laboratory Tests 07/02/22 05:15: White Blood Count 9.5, Red Blood Count 3.35L, Hemoglobin 11.8L, Hematocrit 36L, Mean Corpuscular Volume 107H, Mean Corpuscular Hemoglobin 35H, Mean Corpuscular Hemoglobin Concent 33, Red Cell Distribution Width 14.9H, Platelet Count 137, Mean Platelet Volume 9.9, Percent Immature Platelet Fraction 2.5, Sodium Level 140, Potassium Level 5.2H, Chloride Level 118H, Carbon Dioxide Level 12L, Anion Gap 10, Blood Urea Nitrogen 45H, Creatinine 3.86H, Estimat Glomerular Filtration Rate 17, BUN/Creatinine Ratio 12, Glucose Level 93, Calcium Level 8.4L Microbiology 06/29/22 Blood Culture - Preliminary, Resulted No growth 06/29/22 Urine Culture - Final, Complete Pseudomonas aeruginosa Proteus mirabilis Home Meds Active Xarelto Starter Pack (Rivaroxaban) 15 Mg (42)- 20 Mg (9) Tab.ds.pk 1 Each PO UD 15mg by mouth twice daily x 21 days then 20mg by mouth daily Levofloxacin 750 Mg Tablet 750 Mg PO Q48H 5 Days Sodium Bicarbonate 650 Mg Tablet 650 Mg PO TID 30 Days Fluconazole 100 Mg Tablet 100 Mg PO DAILY 5 Days Reported Magnesium (Magnesium Oxide) 400 Mg Magnesium Tablet 400 Mg PO DAILY Vitamin C (Ascorbic Acid) 500 Mg Tablet 500 Mg PO DAILY Vitamin D3 (Cholecalciferol (Vitamin D3)) 50 Mcg (2000 Unit) Capsule 50 Mcg PO DAILY Tylenol Extra Strength (Acetaminophen) 500 Mg Tablet 1,000 Mg PO Q8H PRN Assessment/Pt Instructions See instructions Discharge Planning: >30 minutes discharge planning Discharge Instructions Discharge Diet: Low Sodium Diet Activity as Tolerated: Yes Consultations Surgery Discharge Physical Examination Vital Signs Vital Signs Date Time Temp Pulse Resp B/P (MAP) Pulse Ox O2 Delivery O2 Flow Rate FiO2 07/02/22 12:44 07/02/22 11:15 36.8 79 20 100 Room Air General Appearance: No Apparent Distress, Obese Respiratory: Lungs Clear, No Respiratory Distress Cardiovascular: Regular Rate, Rhythm, No Murmur Gastrointestinal: Normal Bowel Sounds, Soft Extremity: Normal Inspection, Pedal Edema Skin: Normal Color, Warm/Dry Neurologic/Psychiatric: Alert, Normal Mood/Affect Allergies: Coded Allergies: codeine (Verified Allergy, Severe, Anaphylaxis, 04/11/22) Copy Copies To 1: [facility] [place] Discharge Summary Date of Admission Jun 29, 2022 at 10:50 Date of Discharge Jul 02, 2022 at 12:40 Discharge Date: Jul 02, 2022 Discharge Time: 12:40 Admission Diagnosis INNA Consults/Procedures Consulations Surgery Discharge Diagnosis (1) INNA (acute kidney injury) (2) Chronic renal failure, stage 4 (severe) Status: Acute (3) Left leg DVT Status: Acute Qualifiers: Qualified Codes: I82.402 - Acute embolism and thrombosis of unspecified deep veins of left lower extremity (4) Wound of left groin Status: Acute Qualifiers: Qualified Codes: S31.109A - Unspecified open wound of abdominal wall, unspecified quadrant without penetration into peritoneal cavity, initial encounter ISAÍAS VALENZUELA MD Jul 02, 2022 17:42
[2022-07-21] MEDS ORDERED: RIVAROXABAN 20 MG TABLET (XARELTO) PO SCH (17:00)
== END 2022-07-02 11:22 | disposition home or self-care (01) ==
LOC: EDUNIT# 06:44 → ER FS 06:48 → 4TH 10:50
PROVIDERS: ADMIT Family Medicine; ATTEND Internal Medicine
DX: N17.9 Acute kidney failure, unspecified (principal); I82.402 Acute embolism and thrombosis of unspecified deep veins of left lower extremity; S31.109A Unspecified open wound of abdominal wall, unspecified quadrant without penetration into peritoneal cavity, initial encounter; S31.30XA Unspecified open wound of scrotum and testes, initial encounter; I13.0 Hypertensive heart and chronic kidney disease with heart failure and stage 1 through stage 4 chronic kidney disease, or unspecified chronic kidney disease; N18.4 Chronic kidney disease, stage 4 (severe); I50.9 Heart failure, unspecified; E87.5 Hyperkalemia; N39.0 Urinary tract infection, site not specified; F10.10 Alcohol abuse, uncomplicated; F17.210 Nicotine dependence, cigarettes, uncomplicated; X58.XXXA Exposure to other specified factors, initial encounter
CPT/HCPCS: 36415; 71045; 80048 ×3; 80053; 81000; 82947 ×2; 83605; 83735; 83880; 85025; 85027 ×3; 85379; 85610; 85730; 86141; 87040; 87077; 87088; 87186; 93971; 96361; 96366 ×4; 96376 ×2; 97161; 97165; 99284; G0378; G0480; 80320

== ENCOUNTER 2022-07-27 14:20 | Emergency (ER) | payer MEDICAID ==
[~2022-07-27 14:20] MED LIST changes: +FLUC100T10 PO; +LEVO750T PO; +NF-SODBICA PO; +RIVA1TAB PO
--- NOTE | 2022-07-27 14:25 | ED General ---
General Stated Complaint: CHEST PAIN History of Present Illness Date Seen by Provider: Jul 27, 2022 Time Seen by Provider: 14:23 Initial Comments 61-year-old male presents with cough, congestion, some chest tightness, fatigue been going on for couple days. The chest tightness started this morning. Patient is a current smoker. He reports that if he walks he gets short of breath. He also complains of some chronic diarrhea this been going on for months. Patient has a complicated social history as he lives in his vehicle. He denies any diaphoresis, radiation of the pain. Patient does have a history of being diagnosed with a DVT about a month ago but is currently taking Xarelto. Patient symptoms are more associated with cough congestion at this time. He has frequent coughing and having hard time catching his breath because of that. Allergies and Home Medications Allergies Coded Allergies: codeine (Verified Allergy, Severe, Anaphylaxis, 04/11/22) Patient Home Medication List Home Medication List Reviewed: Yes Acetaminophen (Tylenol Extra Strength) 500 Mg Tablet, 1,000 MG PO Q8H PRN for PAIN-MILD (1-4), (Reported) Entered as Reported by: ADRIANA WILSON on 05/29/22 1008 Ascorbic Acid (Vitamin C) 500 Mg Tablet, 500 MG PO DAILY, (Reported) Entered as Reported by: ADRIANA WILSON on 05/29/22 100 Cholecalciferol (Vitamin D3) (Vitamin D3) 50 Mcg (2000 Unit) Capsule, 50 MCG PO DAILY, (Reported) Entered as Reported by: ADRIANA WILSON on 05/29/22 1008 Fluconazole (Fluconazole) 100 Mg Tablet, 100 MG PO DAILY Prescribed by: ISAÍAS VALENZUELA on 07/02/22 112 Levofloxacin (Levofloxacin) 750 Mg Tablet, 750 MG PO Q48H Prescribed by: ISAÍAS VALENZUELA on 07/02/22 112 Magnesium Oxide (Magnesium) 400 Mg Magnesium Tablet, 400 MG PO DAILY, (Reported) Entered as Reported by: ADRIANA WILSON on 05/29/22 100 Rivaroxaban (Xarelto Starter Pack) 15 Mg (42)- 20 Mg (9) Tab.ds.pk, 1 EACH PO UD Prescribed by: ISAÍAS VALENZUELA on 07/02/22 112 Sodium Bicarbonate (Sodium Bicarbonate) 650 Mg Tablet, 650 MG PO TID Prescribed by: ISAÍAS VALENZUELA on 07/02/22 1122 Review of Systems Review of Systems Constitutional: chills, malaise EENTM: nose congestion Respiratory: cough, dyspnea on exertion; No orthopnea Cardiovascular: see HPI; No edema, No palpitations Gastrointestinal: no symptoms reported Genitourinary: no symptoms reported Musculoskeletal: no symptoms reported Past Dhoibly-Yivtro-Fdlqos Hx Immunizations Up To Date First/Initial COVID19 Vaccinat: Denies Second COVID19 Vaccination Hector: Denies Third COVID19 Vaccination Date: Denies Past Medical History Surgery/Hospitalization HX: chronic renal failure, peripheral edema Surgeries: Yes (TERP , groin I&D and debridement) Testicular Respiratory: No Currently Using CPAP: No Currently Using BIPAP: No Cardiac: Yes Cardiomyopathy, Chronic Edema/Swelling, Hypertension Neurological: No Genitourinary: Yes (marie's gangrene) Benign Prostatic Hyperpl, Kidney Infection, Renal Failure Gastrointestinal: No Musculoskeletal: No Endocrine: No HEENT: No Loss of Vision: Denies Hearing Impairment: Denies Cancer: No Psychosocial: No Integumentary: Yes Recent Skin Changes Family Medical History Cancer, Diabetes Physical Exam Vital Signs Vital Signs - First Documented 07/27/22 14:22 Temp 36.3 Pulse 89 Resp 16 B/P (MAP) 189/85 (119) Pulse Ox 96 O2 Delivery Room Air Capillary Refill : Height, Weight, BMI Height: '" Weight: lbs. oz. kg; 33.06 BMI Method: General Appearance: No Apparent Distress, Other (Disheveled, unkept) HEENT: PERRL/EOMI, Moist Mucous Membranes Neck: Normal Inspection, Non Tender Respiratory: No Accessory Muscle Use, No Respiratory Distress, Wheezing (Mild diffuse) Cardiovascular: Regular Rate, Rhythm, No Edema Extremity: Normal Capillary Refill, Normal Inspection Neurologic/Psychiatric: Alert, Oriented x3, No Motor/Sensory Deficits, Normal Mood/Affect Progress/Results/Core Measures Suspected Sepsis SIRS Temperature: Pulse: Respiratory Rate: Laboratory Tests 07/27/22 14:33: White Blood Count 9.0 Blood Pressure / Mean: Laboratory Tests 07/27/22 14:33: Creatinine 3.39H, Platelet Count 162, Total Bilirubin 0.4 Results/Orders Lab Results Laboratory Tests Test 07/27/22 14:30 07/27/22 14:33 Range/Units Influenza Type A (RT-PCR) Not Detected Not Detecte Influenza Type B (RT-PCR) Not Detected Not Detecte SARS-CoV-2 RNA (RT-PCR) Not Detected Not Detecte White Blood Count 9.0 4.3-11.0 10^3/uL Red Blood Count 3.16 L 4.30-5.52 10^6/uL Hemoglobin 11.1 L 13.3-17.7 g/dL Hematocrit 33 L 40-54 % Mean Corpuscular Volume 105 H 80-99 fL Mean Corpuscular Hemoglobin 35 H 25-34 pg Mean Corpuscular Hemoglobin Concent 33 32-36 g/dL Red Cell Distribution Width 14.7 H 10.0-14.5 % Platelet Count 162 130-400 10^3/uL Mean Platelet Volume 10.9 9.0-12.2 fL Immature Granulocyte % (Auto) 0 % Neutrophils (%) (Auto) 74 42-75 % Lymphocytes (%) (Auto) 16 12-44 % Monocytes (%) (Auto) 8 0-12 % Eosinophils (%) (Auto) 2 0-10 % Basophils (%) (Auto) 1 0-10 % Neutrophils # (Auto) 6.7 1.8-7.8 10^3/uL Lymphocytes # (Auto) 1.4 1.0-4.0 10^3/uL Monocytes # (Auto) 0.7 0.0-1.0 10^3/uL Eosinophils # (Auto) 0.2 0.0-0.3 10^3/uL Basophils # (Auto) 0.1 0.0-0.1 10^3/uL Immature Granulocyte # (Auto) 0.0 0.0-0.1 10^3/uL Sodium Level 140 135-145 MMOL/L Potassium Level 4.9 3.6-5.0 MMOL/L Chloride Level 112 H 98-107 MMOL/L Carbon Dioxide Level 16 L 21-32 MMOL/L Anion Gap 12 5-14 MMOL/L Blood Urea Nitrogen 40 H 7-18 MG/DL Creatinine 3.39 H 0.60-1.30 MG/DL Estimat Glomerular Filtration Rate 20 BUN/Creatinine Ratio 12 Glucose Level 99 70-105 MG/DL Calcium Level 8.4 L 8.5-10.1 MG/DL Corrected Calcium 8.5 8.5-10.1 MG/DL Magnesium Level 1.9 1.6-2.4 MG/DL Total Bilirubin 0.4 0.1-1.0 MG/DL Aspartate Amino Transf (AST/SGOT) 14 5-34 U/L Alanine Aminotransferase (ALT/SGPT) 7 0-55 U/L Alkaline Phosphatase 89 40-136 U/L Troponin I < 0.30 <0.30 NG/ML C-Reactive Protein 0.85 H <0.50 MG/DL Total Protein 7.5 6.4-8.2 GM/DL Albumin 3.9 3.2-4.5 GM/DL My Orders Orders - BOSWELLYUNGESME L DO Chest Pa/Lat (2 View) (07/27/22 14:27) Cbc With Automated Diff (07/27/22 14:) Comprehensive Metabolic Panel (07/27/22 14:) Magnesium (07/27/22 14:) Influenza A And B By Pcr (07/27/22 14:) Crp Fs (07/27/22 14:) Covid 19 Inhouse Test (07/27/22 14:) Ekg Tracing (07/27/22 14:27) Monitor-Rhythm Ecg Trace Only (07/27/22 14:27) Troponin I Fs (07/27/22 15:12) Vital Signs/I&O 07/27/22 07/27/22: 15:49 Temp 36.3 36.3 Pulse 89 84 Resp 16 16 B/P (MAP) 189/85 (119) 172/72 Pulse Ox 96 96 O2 Delivery Room Air Room Air Capillary Refill : Progress Note : Progress Note Patient's x-ray shows no acute findings. Patient's EKG shows sinus rhythm with no ST changes. Patient likely with a viral syndrome with cough congestion runny nose generalized malaise. Patient was recently diagnosed with a DVT however he is currently on a Xarelto and does not present with significant concerns for a pulmonary embolism. Symptoms are more respiratory base consistent with prevalent upper respiratory infections in the area and he is currently being treated appropriately for any DVT or if he had a small PE. I did recommend he reestablish care with his primary care provider. Patient with negative troponin x1 however his symptoms started approximately 10 to 12 hours ago. Patient stable and discharged ECG Initial ECG Impression Date: Jul 27, 2022 Initial ECG Impression Time: 14:31 Initial ECG Rate: 82 Initial ECG Rhythm: Normal Sinus Initial ECG Intervals: Normal Initial ECG Impression: Normal Comment no acute changes, normal ekg Departure Impression Primary Impression: Upper respiratory infection Qualified Codes: J06.9 - Acute upper respiratory infection, unspecified Additional Impression: Chronic kidney disease Qualified Codes: N18.9 - Chronic kidney disease, unspecified Disposition: 01 HOME, SELF-CARE Condition: Stable Departure-Patient Inst. Referrals: NO,LOCAL PHYSICIAN (PCP/Family) Primary Care Physician Patient Instructions: Viral Upper Respiratory Infection, Adult (DC) Add. Discharge Instructions: Tylenol every 4-6 hours as needed for fevers and chills. Have a viral upper respiratory infection. Recommended supportive care such as [id number] cough medication, honey, plenty of fluids and rest. Please reestablish care with your primary care provider to help manage your chronic medical diagnosis. ESME BOSWELL DO Jul 27, 2022 14:25
[2022-07-27] MEDS ORDERED: RT-ALBUTEROL/IPRATROPIUM 3 ML (DUONEB) VIAL INH ONE (14:30)
[2022-07-27 14:41] LABS: BASOPHILS # (AUTO) 0.1 10^3/uL (0.0-0.1); BASOPHILS % (AUTO) 1 % (0-10); EOSINOPHILS # (AUTO) 0.2 10^3/uL (0.0-0.3); EOSINOPHILS % (AUTO) 2 % (0-10); HEMATOCRIT 33 % (40-54); HEMOGLOBIN 11.1 g/dL (13.3-17.7); LYMPHOCYTES # (AUTO) 1.4 10^3/uL (1.0-4.0); LYMPHOCYTES % (AUTO) 16 % (12-44); MEAN CORPUSCULAR HEMOGLOBIN 35 pg (25-34); MEAN CORPUSCULAR HGB CONC 33 g/dL (32-36); MEAN CORPUSCULAR VOLUME 105 fL (80-99); MEAN PLATELET VOLUME 10.9 fL (9.0-12.2); MONOCYTES # (AUTO) 0.7 10^3/uL (0.0-1.0); MONOCYTES % (AUTO) 8 % (0-12); NEUTROPHILS # (AUTO) 6.7 10^3/uL (1.8-7.8); NEUTROPHILS % (AUTO) 74 % (42-75); PLATELET COUNT 162 10^3/uL (130-400)
--- NOTE | 2022-07-27 15:00 | Diagnostic Imaging Report ---
EXAMINATION: Chest, two views. HISTORY: Shortness of breath. COMPARISON: 06/29/2022. FINDINGS: The lung volumes are normal. No focal consolidation is seen. No large pleural effusion or pneumothorax is seen. The cardiomediastinal silhouette is normal in size and contour. No acute osseous abnormality is seen. IMPRESSION: 1. No acute pleural-parenchymal process. Dictated by: Dictated on workstation # [id number]
[2022-07-27 15:04] LABS: BILIRUBIN,TOTAL 0.4 MG/DL (0.1-1.0); CALCIUM 8.4 MG/DL (8.5-10.1); CREATININE SERUM 3.39 MG/DL (0.60-1.30); MAGNESIUM 1.9 MG/DL (1.6-2.4); POTASSIUM 4.9 MMOL/L (3.6-5.0)
[2022-07-27 15:05] LABS: ALBUMIN 3.9 GM/DL (3.2-4.5); TOTAL PROTEIN 7.5 GM/DL (6.4-8.2)
[2022-07-27 15:49] VITALS: BP 172/72
== END 2022-07-27 15:55 | disposition home or self-care (01) ==
LOC: EDUNIT# 14:20 → ER FS 14:21
DX: J06.9 Acute upper respiratory infection, unspecified (principal); I12.9 Hypertensive chronic kidney disease with stage 1 through stage 4 chronic kidney disease, or unspecified chronic kidney disease; N18.9 Chronic kidney disease, unspecified; I82.409 Acute embolism and thrombosis of unspecified deep veins of unspecified lower extremity; F17.200 Nicotine dependence, unspecified, uncomplicated; Z20.822 Contact with and (suspected) exposure to COVID-19
CPT/HCPCS: 36415; 71046; 80053; 83735; 84484; 85025; 86141; 87636; 93005; 93041

== ENCOUNTER 2022-10-24 04:15 | Emergency (ER) | payer MEDICAID ==
[~2022-10-24] VITALS: Ht 182.8 cm; Wt 113.0 kg
[2022-10-24] MEDS ORDERED: ONDANSETRON 4 MG/2 ML (SDV) Z0FRAN IVP STA (04:35)
[2022-10-24] MEDS ORDERED: PANTOPRAZOLE 40 MG (PROTONIX) VIAL IV STA (04:35)
[2022-10-24] MEDS ORDERED: fentaNYL INJ 100 MCG/2 ML AMP IVP STA (04:35)
[2022-10-24] MEDS ORDERED: NS IV 1000 ML 1,000 ML IV STA (04:35)
[2022-10-24 04:45] LABS: BASOPHILS # (AUTO) 0.1 10^3/uL (0.0-0.1); BASOPHILS % (AUTO) 1 % (0-10); EOSINOPHILS # (AUTO) 0.2 10^3/uL (0.0-0.3); EOSINOPHILS % (AUTO) 2 % (0-10); HEMATOCRIT 36 % (40-54); HEMOGLOBIN 11.9 g/dL (13.3-17.7); LYMPHOCYTES # (AUTO) 1.4 10^3/uL (1.0-4.0); LYMPHOCYTES % (AUTO) 16 % (12-44); MEAN CORPUSCULAR HEMOGLOBIN 34 pg (25-34); MEAN CORPUSCULAR HGB CONC 34 g/dL (32-36); MEAN CORPUSCULAR VOLUME 100 fL (80-99); MONOCYTES # (AUTO) 0.7 10^3/uL (0.0-1.0); MONOCYTES % (AUTO) 8 % (0-12); NEUTROPHILS # (AUTO) 6.7 10^3/uL (1.8-7.8); NEUTROPHILS % (AUTO) 73 % (42-75); PLATELET COUNT 128 10^3/uL (130-400); WHITE BLOOD COUNT 9.2 10^3/uL (4.3-11.0)
--- NOTE | 2022-10-24 04:54 | ED Abdominal Pain ---
General Chief Complaint: Abdominal/GI Problems Stated Complaint: ABD PAIN,BLOODY STOOL Source of Information: Patient History of Present Illness Date Seen by Provider: Oct 24, 2022 Time Seen by Provider: 04:19 Initial Comments 62 yo male presenting with complaints of lower abdominal pain with nausea and dark bloody stools for the last few days. He denies taking Xarelto any longer and denies known history of diverticulitis/diverticulosis as he reports he has never had a colonoscopy. He has a complicated social situation as he is homeless and lives out of his vehicle. He does report drinking alcohol on a da pedro basis. He also smokes cigarettes every day. He denies taking any prescription medications on a regular basis at this point. In July he was on Xarelto for previous DVT but he states that he finished his course of that and does not routinely follow-up with any clinic. He started having abdominal pain and seeing dark tarry stools in the last few days. This morning he states that he had access to a bathroom and could actually look at his bowel movement and saw that it was bright red blood. He decided to come to the emergency department to be evaluated since it has been going on for few days. He also reports having cloudy and foul smelling urine. He had a history of prior UTIs due to BPH and that had improved after he had a TURP with the laser procedure. And denies having fever or chills. Timing/Duration: 3-4 Days Severity/Quality: Moderate, Aching, Cramping Location: LLQ, Suprapubic Radiation: No Radiation Activities at Onset: None Modifying Factors: Worsens With Movement Associated Symptoms: No Back Pain, No Chest Pain, No Diaphoresis, No Fever/Chills; Fatigue; No Headache, No Heartburn; Nausea/Vomiting (Nausea without emesis); No Rash, No Swelling/Mass in Abdomen, No Syncope Allergies and Home Medications Allergies Coded Allergies: codeine (Verified Allergy, Severe, Anaphylaxis, 04/11/22) Patient Home Medication List Home Medication List Reviewed: Yes Acetaminophen (Tylenol Extra Strength) 500 Mg Tablet, 1,000 MG PO Q8H PRN for PAIN-MILD (1-4), (Reported) Entered as Reported by: ADRIANA WILSON on 05/29/22 1008 Ascorbic Acid (Vitamin C) 500 Mg Tablet, 500 MG PO DAILY, (Reported) Entered as Reported by: ADRIANA WILSON on 05/29/22 100 Cholecalciferol (Vitamin D3) (Vitamin D3) 50 Mcg (2000 Unit) Capsule, 50 MCG PO DAILY, (Reported) Entered as Reported by: ADRIANA WILSON on 05/29/22 100 Dicyclomine HCl (Dicyclomine HCl) 10 Mg Capsule, 10 MG PO Q6H PRN for ABDOMINAL PAIN Prescribed by: SONNY DAVID on 10/24/22 06 Fluconazole (Fluconazole) 100 Mg Tablet, 100 MG PO DAILY Prescribed by: ISAÍAS VALENZUELA on 07/02/22 112 Levofloxacin (Levofloxacin) 750 Mg Tablet, 750 MG PO Q48H Prescribed by: ISAÍAS VALENZUELA on 07/02/22 112 Levofloxacin (Levofloxacin) 500 Mg Tablet, 500 MG PO Q48H Prescribed by: SONNY DAVID on 10/24/22 0644 Magnesium Oxide (Magnesium) 400 Mg Magnesium Tablet, 400 MG PO DAILY, (Reported) Entered as Reported by: ADRIANA WILSON on 05/29/22 100 Pantoprazole Sodium (Pantoprazole Sodium) 40 Mg Tablet.dr, 40 MG PO DAILY Prescribed by: SONNY DAVID on 10/24/22 06 Rivaroxaban (Xarelto Starter Pack) 15 Mg (42)- 20 Mg (9) Tab.ds.pk, 1 EACH PO UD Prescribed by: ISAÍAS VALENZUELA on 07/02/221121 Sodium Bicarbonate (Sodium Bicarbonate) 650 Mg Tablet, 650 MG PO TID Prescribed by: ISAÍAS VALENZUELA on 07/02/221121 Review of Systems Review of Systems Constitutional: see HPI EENTM: No Symptoms Reported Respiratory: No Symptoms Reported Cardiovascular: Denies Chest Pain Gastrointestinal: See HPI Genitourinary: See HPI Musculoskeletal: no symptoms reported Skin: No rash Past Wqtpdle-[id number]-Csmvqg Hx Patient Social History Tobacco Use?: Yes Tobacco type used: Cigarettes Substance use?: Yes Additional substance use comme: THC Gummy Alcohol Use?: Yes Alcohol type: Beer, Hard Liquor Alcohol Frequency: Daily Pt feels they are or have been: No Immunizations Up To Date First/Initial COVID19 Vaccinat: Denies Second COVID19 Vaccination Hector: Denies Third COVID19 Vaccination Date: Denies Past Medical History Surgery/Hospitalization HX: chronic renal failure, peripheral edema; CHF, noncompliance Surgeries: Yes (TERP , groin I&D and debridement) Testicular Respiratory: No Currently Using CPAP: No Currently Using BIPAP: No Cardiac: Yes Cardiomyopathy, Chronic Edema/Swelling, Hypertension Neurological: No Genitourinary: Yes (marie's gangrene) Benign Prostatic Hyperpl, Kidney Infection, Renal Failure Gastrointestinal: No Musculoskeletal: No Endocrine: No HEENT: No Loss of Vision: Denies Hearing Impairment: Denies Cancer: No Psychosocial: No Integumentary: Yes Recent Skin Changes Family Medical History Cancer, Diabetes Physical Exam Vital Signs Vital Signs - First Documented 10/24/22 04:18 Pulse 114 Resp 18 B/P (MAP) 189/92 (124) Pulse Ox 100 O2 Delivery Room Air Capillary Refill : Height/Weight/BMI Height: '" Weight: lbs. oz. kg; 33.06 BMI Method: General Appearance: obese, other (disheveled with poor personal hygiene) HEENT: PERRL/EOMI, pharynx normal Respiratory: chest non-tender, lungs clear, normal breath sounds, no respiratory distress, no accessory muscle use Cardiovascular: normal peripheral pulses, regular rate, rhythm Gastrointestinal: normal bowel sounds, soft, no pulsatile mass; No distended, No guarding, No rebound; tenderness (LLQ) Rectal: heme positive stool; No hemorrhoids Extremities: normal range of motion, non-tender, normal capillary refill Neurologic/Psychiatric: alert, oriented x 3 Skin: normal color, warm/dry Progress/Results/Core Measures Results/Orders Lab Results Laboratory Tests Test 10/24/22 04:31 10/24/22 06:13 Range/Units White Blood Count 9.2 4.3-11.0 10^3/uL Red Blood Count 3.55 L 4.30-5.52 10^6/uL Hemoglobin 11.9 L 13.3-17.7 g/dL Hematocrit 36 L 40-54 % Mean Corpuscular Volume 100 H 80-99 fL Mean Corpuscular Hemoglobin 34 25-34 pg Mean Corpuscular Hemoglobin Concent 34 32-36 g/dL Red Cell Distribution Width 15.9 H 10.0-14.5 % Platelet Count 128 L 130-400 10^3/uL Mean Platelet Volume 10.0 9.0-12.2 fL Immature Granulocyte % (Auto) 1 % Neutrophils (%) (Auto) 73 42-75 % Lymphocytes (%) (Auto) 16 12-44 % Monocytes (%) (Auto) 8 0-12 % Eosinophils (%) (Auto) 2 0-10 % Basophils (%) (Auto) 1 0-10 % Neutrophils # (Auto) 6.7 1.8-7.8 10^3/uL Lymphocytes # (Auto) 1.4 1.0-4.0 10^3/uL Monocytes # (Auto) 0.7 0.0-1.0 10^3/uL Eosinophils # (Auto) 0.2 0.0-0.3 10^3/uL Basophils # (Auto) 0.1 0.0-0.1 10^3/uL Immature Granulocyte # (Auto) 0.1 0.0-0.1 10^3/uL Prothrombin Time 13.6 12.2-14.7 SEC INR Comment 1.0 0.8-1.4 Activated Partial Thromboplast Time 27 24-35 SEC Sodium Level 139 135-145 MMOL/L Potassium Level 4.1 3.6-5.0 MMOL/L Chloride Level 109 H 98-107 MMOL/L Carbon Dioxide Level 14 L 21-32 MMOL/L Anion Gap 16 H 5-14 MMOL/L Blood Urea Nitrogen 49 H 7-18 MG/DL Creatinine 3.92 H 0.60-1.30 MG/DL Estimat Glomerular Filtration Rate 16 BUN/Creatinine Ratio 13 Glucose Level 99 70-105 MG/DL Calcium Level 8.4 L 8.5-10.1 MG/DL Corrected Calcium 8.6 8.5-10.1 MG/DL Total Bilirubin 0.5 0.1-1.0 MG/DL Aspartate Amino Transf (AST/SGOT) 14 5-34 U/L Alanine Aminotransferase (ALT/SGPT) 10 0-55 U/L Alkaline Phosphatase 95 40-136 U/L Total Protein 7.5 6.4-8.2 GM/DL Albumin 3.8 3.2-4.5 GM/DL Lipase 70 8-78 U/L Urine Color YELLOW Urine Clarity TURBID Urine pH 6.0 5-9 Urine Specific [place] 1.015 L 1.016-1.022 Urine Protein 2+ H NEGATIVE Urine Glucose (UA) NEGATIVE NEGATIVE Urine Ketones NEGATIVE NEGATIVE Urine Nitrite NEGATIVE NEGATIVE Urine Bilirubin NEGATIVE NEGATIVE Urine Urobilinogen 0.2 < = 1.0 MG/DL Urine Leukocyte Esterase 3+ H NEGATIVE Urine RBC (Auto) 2+ H NEGATIVE Urine RBC 2-5 H /HPF Urine WBC >100 H /HPF Urine Squamous Epithelial Cells 0-2 /HPF Urine Crystals NONE /LPF Urine Bacteria LARGE H /HPF Urine Casts NONE /LPF Urine Mucus NEGATIVE /LPF Urine Culture Indicated YES My Orders Orders - SONNY DAVID MD Comprehensive Metabolic Panel (10/24/22 04:35) Lipase (10/24/22 04:35) Ua Culture If Indicated (10/24/22 04:35) Ed Iv/Invasive Line Start (10/24/22 04:35) Cbc With Automated Diff (10/24/22 04:35) Protime With Inr (10/24/22 04:35) Partial Thromboplastin Time (10/24/22 04:35) Ns Iv 1000 Ml (Sodium Chloride 0.9%) (10/24/22 04:35) Pantoprazole Injection (Protonix Injecti (10/24/22 04:35) Ondansetron Injection (Zofran Injectio (10/24/22 04:35) Fentanyl Inj (Sublimaze Injection) (10/24/22 04:35) Fecal Occult Bedside (10/24/22 04:37) Ct Abdomen/Pelvis Wo (10/24/22 04:39) Urine Culture (10/24/22 06:13) Levofloxacin Tablet (Levaquin Tablet) (10/24/22 06:41) Vital Signs/I&O 10/24/22 10/24/22 04:18 06:49 Pulse 114 98 Resp 18 16 B/P (MAP) 189/92 (124) 134/86 Pulse Ox 100 100 O2 Delivery Room Air Room Air Progress Progress Note #1: Progress Note Potential diagnosis of acute diverticulitis, colon cancer, hemorrhoids, gastritis, colitis, pyelonephritis, cystitis. Obtain peripheral IV access and send labs for complete blood count, comprehensive metabolic profile, lipase, alcohol. Urinalysis to look for signs of infection and hydration status. On digital rectal exam he did not have a lot of stool in his rectal vault but it was heme positive on Hemoccult test. We will order CT scan of the abdomen and pelvis with IV contrast to evaluate for possible pathology causing his symptoms. Administer normal saline 1 L IV fluid bolus for hydration, pantoprazole 40 mg IV for possible gastritis, Zofran 4 mg IV for nausea, fentanyl 50 mcg IV for abdominal pain. I canceled the CT scan of the abdomen and pelvis with IV contrast as he has a chronic history of renal failure with creatinine over 3 when last checked in July. Will order a CT scan of the abdomen and pelvis without contrast to evaluate for acute pathology causing his symptoms over the last 3 or 4 days. Progress Note #2: Time: 05:01 Progress Note Complete blood count does not show elevation of his white blood cell count to indicate an infection. It was 9.2 today. His hemoglobin is 11.9 to go with some anemia. On review of his most recent labs in June and July his hemoglobin runs from 10.5-11.5. He does have some low platelets at 128 which again has been seen previously on testing. On my personal review and interpretation of the CT scan of the abdomen pelvis without IV contrast I did not see any obvious mass. I did not appreciate an obstruction or blockage. Progress Note #3: Time: 05:38 Progress Note Comprehensive metabolic profile shows he has an elevated BUN of 49 with a creatinine of 3.92. This is similar to his prior tracings. Lipase is normal at 70. His coagulation factors are within normal range and not showing coagulopathy. His general electrolytes and liver enzymes all appeared stable without acute significant abnormality to account for his symptoms. Awaiting radiology report on the CT scan of the abdomen and pelvis. He remains hemodynamically stable with oxygen saturation of 100% on room air and heart rate in the 80s with a sinus rhythm. His blood pressures been in the 140s to 150s systolic over 80s. With his hemoglobin being stable as well as not being hypotensive or tachycardic it does not appear that he was losing a large amount of blood. He would benefit from EGD or colonoscopy to evaluate his source of bleeding. These could be done as an outpatient since he was having no significant drop in his hemoglobin and was hemodynamically stable. Provided the radiologist does not see any acute significant abnormality on his CT scan of the abdomen and pelvis will plan on discharge with prescriptions for acid aquatics director as well as could try Bentyl or dicyclomine for abdominal pains. Progress Note #4: Time: 06:00 Progress Note I have reviewed the radiologist report of the CT scan of the abdomen and pelvis without IV contrast. A felt that his bladder wall might be a little thickened but could also be from under distention. The side diverticulosis but did not appreciate diverticulitis. Otherwise he had chronic kidney changes consistent with his chronic renal failure. Will review results with the patient and provide him with numbers for [facility] clinic as well as the general surgeons out of [place]. Otherwise proceed with outpatient plan as above. Progress Note #5: Time: 06:44 Progress Note Urinalysis came back showing signs of urinary tract infection with leukocyte Estrace greater than 100 white blood cells and bacteria present. Based off of his last urine culture he had Proteus and Pseudomonas in his urine but they were sensitive to fluoroquinolones so we will start him on levofloxacin. With his chronic renal failure we will dose it at 500 mg p.o. every 48 hours. Encourage patient to follow-up with the primary care clinic as well as surgeon for possible endoscopy testing. The pain that he is experiencing may be more related to urinary tract infection in the colon. The bright red blood he saw could be from some internal hemorrhoids. Again encouraged to get endoscopy done to further delineate his complaints. I felt that this would be safe to be done as an outpatient as he was hemodynamically stable and not showing signs of severe anemia despite several days of symptoms. Diagnostic Imaging Diagonstic Imaging: CT Plain Films/CT/US/NM/MRI: abdomen, pelvis Comments NAME: [facility]IC[facility] REC#: [id number] PT STATUS: REG ER : 1960 PHYSICIAN: SONNY DAVID MD ADMIT DATE: 10/24/22/ER FS Signed Date of Exam:10/24/22 CT ABDOMEN/PELVIS WO PROCEDURE: CT abdomen and pelvis without contrast. TECHNIQUE: Multiple contiguous axial images were obtained through the abdomen and pelvis without the use of intravenous contrast. Auto Exposure Controls were utilized during the CT exam to meet ALARA standards for radiation dose reduction. INDICATION: Abdominal pain. Bloody stools. COMPARISON: 05/28/2022. 04/11/2022. FINDINGS: The heart is unremarkable. The lung bases are clear. Stable hypoattenuating focus is seen in the right hepatic lobe. The gallbladder is mildly distended. No gallstones are seen. Scattered proteinaceous cysts are seen in the kidneys. No evidence of obstructing calculi or hydronephrosis. The urinary bladder is nondistended. There is generalized bladder wall thickening. No bladder calculi. Stable low-density nodule seen in the right adrenal gland measuring 1.6 cm. The left adrenal gland is unremarkable. The spleen and pancreas have a normal noncontrast CT appearance. There is no pathologically enlarged mesenteric or retroperitoneal adenopathy. The bowel loops are nondilated. The appendix is visualized in the right lower quadrant and has a normal appearance. Diverticuli are seen in the descending and sigmoid colon without evidence of acute diverticulitis. There is no free fluid or free air. No acute osseous abnormalities. Scattered calcified aortic and iliac atherosclerotic plaque is seen without aneurysm. There is no free air, loculated collection, or adenopathy in the pelvis. IMPRESSION: 1. Bladder wall thickening, which can be seen with inadequate distention versus cystitis. Recommend correlation with UA. 2. Diverticulosis of the descending and sigmoid colon without evidence of acute diverticulitis. No bowel obstruction. No free fluid or free air. Dictated by: Dictated on workstation # [id number] Dict: 10/24/22 0550 Trans: 10/24/22 0557 [facility] [id number] Interpreted by: SHILPA UNGER DO Electronically signed by: SHILPA UNGER DO 10/24/22 0557 Reviewed: Reviewed by Wa Departure Impression Primary Impression: Acute cystitis without hematuria Additional Impressions: Left lower quadrant abdominal pain Bloody stools Disposition: 01 HOME, SELF-CARE Condition: Stable Departure-Patient Inst. Decision time for Depature: 06:45 Referrals: LEONA ANGEL DO NO,LOCAL PHYSICIAN (PCP) Primary Care Physician [facility] Patient Instructions: Bloody Stools, Adult ED, Abdominal Pain, Adult ED Add. Discharge Instructions: Your tests showed your hemoglobin is stable at 11.9 so we are not seeing a big drop in your blood count with the blood you are seeing with your stools. CT scan did not show diverticulitis, mass, internal bleeding. Would recommend taking acid aquatics director medicine for possible gastritis and may use dicyclomine (bentyl) for abdominal pain/cramping. Follow up with clinic and surgeon about possible colonoscopy to look at colon and or EGD to look at esophagus and stomach lining. All discharge instructions reviewed with patient and/or family. Voiced understanding. Scripts Levofloxacin (Levofloxacin) 500 Mg Tablet 500 MG PO Q48H for UTI for 10 Days, #5 TAB 0 Refills Prov: SONNY DAVID MD 10/24/22 Pantoprazole Sodium (Pantoprazole Sodium) 40 Mg Tablet.dr 40 MG PO DAILY for 30 Days, #30 TAB 0 Refills Prov: SONNY DAVID MD 10/24/22 Dicyclomine HCl (Dicyclomine HCl) 10 Mg Capsule 10 MG PO Q6H PRN for ABDOMINAL PAIN for 10 Days, #40 CAP 0 Refills Prov: SONNY DAVID MD 10/24/22 SONNY DAVID MD Oct 24, 2022 04:54
[2022-10-24 05:11] LABS: PROTHROMBIN TIME PATIENT 13.6 SEC (12.2-14.7)
[2022-10-24 05:12] LABS: BILIRUBIN,TOTAL 0.5 MG/DL (0.1-1.0); CALCIUM 8.4 MG/DL (8.5-10.1); CREATININE SERUM 3.92 MG/DL (0.60-1.30); POTASSIUM 4.1 MMOL/L (3.6-5.0)
[2022-10-24 05:13] LABS: ALBUMIN 3.8 GM/DL (3.2-4.5); TOTAL PROTEIN 7.5 GM/DL (6.4-8.2)
--- NOTE | 2022-10-24 05:57 | Diagnostic Imaging Report ---
PROCEDURE: CT abdomen and pelvis without contrast. TECHNIQUE: Multiple contiguous axial images were obtained through the abdomen and pelvis without the use of intravenous contrast. Auto Exposure Controls were utilized during the CT exam to meet ALARA standards for radiation dose reduction. INDICATION: Abdominal pain. Bloody stools. COMPARISON: 05/28/2022. 04/11/2022. FINDINGS: The heart is unremarkable. The lung bases are clear. Stable hypoattenuating focus is seen in the right hepatic lobe. The gallbladder is mildly distended. No gallstones are seen. Scattered proteinaceous cysts are seen in the kidneys. No evidence of obstructing calculi or hydronephrosis. The urinary bladder is nondistended. There is generalized bladder wall thickening. No bladder calculi. Stable low-density nodule seen in the right adrenal gland measuring 1.6 cm. The left adrenal gland is unremarkable. The spleen and pancreas have a normal noncontrast CT appearance. There is no pathologically enlarged mesenteric or retroperitoneal adenopathy. The bowel loops are nondilated. The appendix is visualized in the right lower quadrant and has a normal appearance. Diverticuli are seen in the descending and sigmoid colon without evidence of acute diverticulitis. There is no free fluid or free air. No acute osseous abnormalities. Scattered calcified aortic and iliac atherosclerotic plaque is seen without aneurysm. There is no free air, loculated collection, or adenopathy in the pelvis. IMPRESSION: 1. Bladder wall thickening, which can be seen with inadequate distention versus cystitis. Recommend correlation with UA. 2. Diverticulosis of the descending and sigmoid colon without evidence of acute diverticulitis. No bowel obstruction. No free fluid or free air. Dictated by: Dictated on workstation # [id number]
[2022-10-24] MEDS ORDERED: DICY10CA12 PO (06:07)
[2022-10-24] MEDS ORDERED: PANT40TA52 PO (06:07)
[2022-10-24 06:37] LABS: CLARITY,URINE TURBID; COLOR,URINE YELLOW; PROTEIN,URINE 2+ (NEGATIVE)
[2022-10-24 06:38] LABS: BACTERIA,URINE LARGE /HPF; BILIRUBIN,URINE NEGATIVE (NEGATIVE); GLUCOSE, URINE (UA) NEGATIVE (NEGATIVE); KETONES,URINE NEGATIVE (NEGATIVE); LEUKOCYTE ESTERASE ,URINE 3+ (NEGATIVE); NITRITE,URINE NEGATIVE (NEGATIVE); WBC,URINE >100 /HPF
[2022-10-24 06:39] LABS: SQUAMOUS EPITHELIAL CELL,UR 0-2 /HPF
[2022-10-24] MEDS ORDERED: LEVO-55 PO (06:44)
[2022-10-24 06:49] VITALS: BP 134/86
== END 2022-10-24 07:00 | disposition home or self-care (01) ==
LOC: EDUNIT# 04:15 → ER FS 04:16
DX: N30.00 Acute cystitis without hematuria (principal); K92.1 Melena; I82.409 Acute embolism and thrombosis of unspecified deep veins of unspecified lower extremity; I13.0 Hypertensive heart and chronic kidney disease with heart failure and stage 1 through stage 4 chronic kidney disease, or unspecified chronic kidney disease; N18.9 Chronic kidney disease, unspecified; F17.210 Nicotine dependence, cigarettes, uncomplicated; Z79.01 Long term (current) use of anticoagulants; Z28.310 Unvaccinated for COVID-19
CPT/HCPCS: 36415; 74176; 80053; 81000; 82274; 83690; 85025; 85610; 85730; 87077; 87088

== ENCOUNTER 2022-10-25 22:27 | Emergency (ER) | payer MEDICAID ==
[~2022-10-25] VITALS: Ht 182 cm; Wt 99.7 kg
[~2022-10-25 22:27] MED LIST changes: +DICY10CA12 PO; +LEVO-55 PO; +PANT40TA52 PO
--- NOTE | 2022-10-26 01:33 | ED Psychosocial ---
General Chief Complaint: Substance Abuse Stated Complaint: SUBSTANCE ABUSE/ALCOHOLISM Source: patient History of Present Illness Date Seen by Provider: Oct 26, 2022 Time Seen by Provider: 01:33 Initial Comments 62-year-old male presenting with complaints of alcoholism and wanting admission to help with detox and alcohol withdrawal. He has a poor social situation as he is currently living out of his van. He is homeless and drinking alcohol and not taking care of himself. 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 He was started on antibiotics of Levaquin but states that he did not have any money until next week when he would next get a check. He presents this morning concerned about needing to be admitted for medical detox for alcoholism and was hoping to get into a inpatient 30-day detox center. He was requesting help from a social service worker standpoint as well to help get him better care as he feels like if he continues to live in his van and in just drink alcohol and not take care of himself that he will . He is worried the infection and kidney function will worsen if he does not get treatment as he does not have a way to get additional medicine or follow up until next week when he gets a check. He states he gets tremors if he does not drink but denies seizures if Timing/Duration: getting worse Severity: moderate Allergies and Home Medications Allergies Coded Allergies: codeine (Verified Allergy, Severe, Anaphylaxis, 04/11/22) Patient Home Medication List Home Medication List Reviewed: Yes Acetaminophen (Tylenol Extra Strength) 500 Mg Tablet, 1,000 MG PO Q8H PRN for PAIN-MILD (1-4), (Reported) Entered as Reported by: ADRIANA WILSON on 05/29/22 1008 Ascorbic Acid (Vitamin C) 500 Mg Tablet, 500 MG PO DAILY, (Reported) Entered as Reported by: ADRIANA WILSON on 05/29/22 1008 Cholecalciferol (Vitamin D3) (Vitamin D3) 50 Mcg (2000 Unit) Capsule, 50 MCG PO DAILY, (Reported) Entered as Reported by: ADRIANA WILSON on 05/29/22 1008 Dicyclomine HCl (Dicyclomine HCl) 10 Mg Capsule, 10 MG PO Q6H PRN for ABDOMINAL PAIN Prescribed by: SONNY DAVID on 10/24/22 0607 Fluconazole (Fluconazole) 100 Mg Tablet, 100 MG PO DAILY Prescribed by: ISAÍAS VALENZUELA on 07/02/221121 Levofloxacin (Levofloxacin) 750 Mg Tablet, 750 MG PO Q48H Prescribed by: ISAÍAS VALENZUELA on 07/02/221121 Levofloxacin (Levofloxacin) 500 Mg Tablet, 500 MG PO Q48H Prescribed by: SONNY DAVID on 10/24/22 0644 Magnesium Oxide (Magnesium) 400 Mg Magnesium Tablet, 400 MG PO DAILY, (Reported) Entered as Reported by: ADRIANA WILSON on 05/29/22 1008 Pantoprazole Sodium (Pantoprazole Sodium) 40 Mg Tablet.dr, 40 MG PO DAILY Prescribed by: SONNY DAVID on 10/24/22 0607 Rivaroxaban (Xarelto Starter Pack) 15 Mg (42)- 20 Mg (9) Tab.ds.pk, 1 EACH PO UD Prescribed by: ISAÍAS VALENZUELA on 07/02/221121 Sodium Bicarbonate (Sodium Bicarbonate) 650 Mg Tablet, 650 MG PO TID Prescribed by: ISAÍAS VALENZUELA on 07/02/221121 Review of Systems Constitutional: No chills, No fever; malaise EENTM: no symptoms reported Respiratory: no symptoms reported Cardiovascular: edema (chronic) Gastrointestinal: see HPI, other (bright red blood per rectum ) Genitourinary: dysuria, hesitancy Musculoskeletal: no symptoms reported Skin: no symptoms reported Psychiatric/Neurological: Anxiety, Depressed Past Tvfgzok-Dcuthb-Yxewmz Hx Patient Social History Tobacco Use?: No Alcohol Use?: Yes Alcohol type: Hard Liquor Alcohol Frequency: Daily Immunizations Up To Date First/Initial COVID19 Vaccinat: Denies Second COVID19 Vaccination Hector: Denies Third COVID19 Vaccination Date: Denies Past Medical History Surgery/Hospitalization HX: chronic renal failure, peripheral edema; CHF, noncompliance Surgeries: Yes (TERP , groin I&D and debridement) Testicular Respiratory: No Currently Using CPAP: No Currently Using BIPAP: No Cardiac: Yes Cardiomyopathy, Chronic Edema/Swelling, Hypertension Neurological: No Genitourinary: Yes (marie's gangrene) Benign Prostatic Hyperpl, Kidney Infection, Renal Failure Gastrointestinal: No Musculoskeletal: No Endocrine: No HEENT: No Loss of Vision: Denies Hearing Impairment: Denies Cancer: No Psychosocial: No Integumentary: Yes Recent Skin Changes Family Medical History Cancer, Diabetes Physical Exam Vital Signs - First Documented 10/25/22 22:45 Temp 37.2 Pulse 107 Resp 20 B/P (MAP) 171/94 (119) Pulse Ox 98 O2 Delivery Room Air Capillary Refill : Height, Weight, BMI Height: '" Weight: lbs. oz. kg; 33.00 BMI Method: General Appearance: obese, other (disheveled appearance with poor personal hygiene) HEENT: PERRL/EOMI, pharynx normal Neck: non-tender, full range of motion, supple, normal inspection Respiratory: chest non-tender, lungs clear, normal breath sounds, no respiratory distress, no accessory muscle use Cardiovascular: normal peripheral pulses, tachycardia Gastrointestinal: normal bowel sounds, soft, no pulsatile mass, hernia (large inguinal hernia on right without tenderness, increased warmth or erythema) Extremities: normal range of motion, normal capillary refill Neurologic/Psychiatric: alert, oriented x 3 Appearance/Memory: disheveled Behavior/Eye Contact: cooperative, good eye contact, normal speech Thoughts/Hallucinations: normal thought pattern, no apparent hallucination Skin: normal color, warm/dry Progress/Results/Core Measures Results/Orders Lab Results Laboratory Tests Test 10/26/22 02:10 10/26/22 05:56 Range/Units White Blood Count 9.6 4.3-11.0 10^3/uL Red Blood Count 3.79 L 4.30-5.52 10^6/uL Hemoglobin 12.6 L 13.3-17.7 g/dL Hematocrit 39 L 40-54 % Mean Corpuscular Volume 102 H 80-99 fL Mean Corpuscular Hemoglobin 33 25-34 pg Mean Corpuscular Hemoglobin Concent 33 32-36 g/dL Red Cell Distribution Width 16.6 H 10.0-14.5 % Platelet Count 129 L 130-400 10^3/uL Mean Platelet Volume 10.7 9.0-12.2 fL Immature Granulocyte % (Auto) 1 % Neutrophils (%) (Auto) 77 H 42-75 % Lymphocytes (%) (Auto) 13 12-44 % Monocytes (%) (Auto) 7 0-12 % Eosinophils (%) (Auto) 2 0-10 % Basophils (%) (Auto) 1 0-10 % Neutrophils # (Auto) 7.4 1.8-7.8 10^3/uL Lymphocytes # (Auto) 1.3 1.0-4.0 10^3/uL Monocytes # (Auto) 0.6 0.0-1.0 10^3/uL Eosinophils # (Auto) 0.2 0.0-0.3 10^3/uL Basophils # (Auto) 0.1 0.0-0.1 10^3/uL Immature Granulocyte # (Auto) 0.1 0.0-0.1 10^3/uL Sodium Level 140 135-145 MMOL/L Potassium Level 5.3 H 3.6-5.0 MMOL/L Chloride Level 113 H 98-107 MMOL/L Carbon Dioxide Level 12 L 21-32 MMOL/L Anion Gap 15 H 5-14 MMOL/L Blood Urea Nitrogen 47 H 7-18 MG/DL Creatinine 4.26 H 0.60-1.30 MG/DL Estimat Glomerular Filtration Rate 15 BUN/Creatinine Ratio 11 Glucose Level 63 L 70-105 MG/DL Calcium Level 8.6 8.5-10.1 MG/DL Corrected Calcium 8.6 8.5-10.1 MG/DL Total Bilirubin 0.5 0.1-1.0 MG/DL Aspartate Amino Transf (AST/SGOT) 12 5-34 U/L Alanine Aminotransferase (ALT/SGPT) 8 0-55 U/L Alkaline Phosphatase 92 40-136 U/L Total Protein 7.6 6.4-8.2 GM/DL Albumin 4.0 3.2-4.5 GM/DL Salicylates Level < 0.3 L 5.0-20.0 MG/DL Acetaminophen Level < 10 L 10-30 UG/ML Serum Alcohol < 10 <10 MG/DL Urine Color YELLOW Urine Clarity CLOUDY Urine pH 6.0 5-9 Urine Specific [place] 1.015 L 1.016-1.022 Urine Protein 2+ H NEGATIVE Urine Glucose (UA) NEGATIVE NEGATIVE Urine Ketones TRACE H NEGATIVE Urine Nitrite NEGATIVE NEGATIVE Urine Bilirubin NEGATIVE NEGATIVE Urine Urobilinogen 0.2 < = 1.0 MG/DL Urine Leukocyte Esterase 3+ H NEGATIVE Urine RBC (Auto) 1+ H NEGATIVE Urine RBC 2-5 H /HPF Urine WBC >100 H /HPF Urine Squamous Epithelial Cells 0-2 /HPF Urine Crystals NONE /LPF Urine Bacteria LARGE H /HPF Urine Casts NONE /LPF Urine Mucus NEGATIVE /LPF Urine Culture Indicated YES Urine Opiates Screen NEGATIVE NEGATIVE Urine Oxycodone Screen NEGATIVE NEGATIVE Urine Methadone Screen NEGATIVE NEGATIVE Urine Propoxyphene Screen NEGATIVE NEGATIVE Urine Barbiturates Screen NEGATIVE NEGATIVE Ur Tricyclic Antidepressants Screen NEGATIVE NEGATIVE Urine Phencyclidine Screen NEGATIVE NEGATIVE Urine Amphetamines Screen NEGATIVE NEGATIVE Urine Methamphetamines Screen NEGATIVE NEGATIVE Urine Benzodiazepines Screen NEGATIVE NEGATIVE Urine Cocaine Screen NEGATIVE NEGATIVE Urine Cannabinoids Screen POSITIVE H NEGATIVE My Orders Orders - SONNY DAVID MD Ua Culture If Indicated (10/26/22 01:53) Cbc With Automated Diff (10/26/22 01:53) Comprehensive Metabolic Panel (10/26/22 01:53) Alcohol (10/26/22 01:53) Drug Screen Stat (Urine) (10/26/22 01:53) Acetaminophen (10/26/22 01:53) Salicylate (10/26/22 01:53) Ed Iv/Invasive Line Start (10/26/22 01:53) Ns Iv 500 Ml (Sodium Chloride 0.9%) (10/26/22 02:00) Levofloxacin Tablet (Levaquin Tablet) (10/26/22 01:53) Urine Culture (10/26/22 05:56) Lorazepam Tablet (Ativan Tablet) (10/26/22 06:25) Vital Signs/I&O 10/25/22 10/26/22 22:45 06:33 Temp 37.2 Pulse 107 100 Resp 20 20 B/P (MAP) 171/94 (119) 154/88 (110) Pulse Ox 98 100 O2 Delivery Room Air Room Air Progress Progress Note #1: Progress Note Potential diagnosis of alcohol abuse, substance abuse, homelessness, pyelonephritis, alcohol gastritis, diverticulitis, colitis. I advised patient that we did not have any way to admit here for alcohol detox. Will obtain labs and evaluate for worsening of his urinary tract infection or signs of electrolyte imbalance that might warrant admission to the hospital. Patient was requesting to try and go to [facility] as he was wanting to be admitted for his alcohol use as well as helping with his treatment for the urinary tract infection and chronic medical conditions. Progress Note #2: Progress Note Labs came back showing his white blood cell count was 9.6 without a left shift. His hemoglobin is stable at 12.6 for some mild anemia. He does have an elevated MCV of 102 consistent with his alcohol abuse. His comprehensive metabolic profile showed alcohol level was less than 10. Acetaminophen and salicylate lev els were also negative. His renal function was showing worsening as he is now up to 4.26 for his creatinine with a GFR of 15. 2 days ago he was 3.9 and in 2021 his creatinine was around 3 for his baseline. He had evidence for some withdrawal as he has tremor and heart rate is around 100 sinus tachycardia. Progress Note #3: Progress Note I discussed the case with Dr. Huston the local hospitalist for [facility]. As patient was having continued urine infection with Pseudomonas as well as he has worsening renal failure she felt that he would need higher level of care that would have at least nephrology services available if needed for his kidney function. I discussed the situation with the patient and currently the hospitals in [place] are on diversion and the other local hospitals that are closer do not have nephrology services either. He was agreeable to trying [place]. He is worried about the distance as he is homeless and living in his van and was unsure how he would make it back to [place] to his vehicle. He understood that his health was a big concern for his treatment today and that unfortunately the closest facilities would be in the [facility]. He was agreeable to trying [facility] and [facility] since it would be one of the closest hospitals to [place] that had these services he would need with nephrology possibly infectious disease and monitoring for alcohol withdrawal and DTs. 0615 D/w Dr. Arreola through the [facility] access center for [facility]. I d iscussed with her the presentation of the patient 2 days ago with findings of a UTI and history of Pseudomonas in his urine. His preliminary culture does show Pseudomonas again this time. He is having worsening renal function with baseline creatinine around 3 but currently he is up to 4.26. This is up from 3.9 on October 24. He has not had an alcohol drink for 24 hours and was feeling jittery and tremors. He denies having a history of seizures with withdrawal from alcohol but does admit to getting tremors. He was wanting to quit drinking and he wanted to help with his kidneys as well as a urine infection. He has received levofloxacin 500 mg on the then repeated dose today. From an alcohol standpoint he has heart rate 100-110 sinus tachycardia. He has hypertension with blood pressure 171/94. will treat with Ativan 1 mg po for tremors and withdrawal. She accepted pt on behalf of Dr. Yanez. Progress Note #4: Time: 07:40 Progress Note EMS arrived to transport the patient to [facility]. He was feeling more calm and less jittery since he received Ativan 1 mg p.o. Departure Impression Primary Impression: Acute cystitis without hematuria Additional Impressions: Pseudomonas urinary tract infection Alcohol abuse Alcohol withdrawal Qualified Codes: F10.930 - Alcohol use, unspecified with withdrawal, uncomplicated Acute on chronic kidney failure Qualified Codes: N17.9 - Acute kidney failure, unspecified; N18.5 - Chronic kidney disease, stage 5 Disposition: XF [facility] HOSP Condition: Stable (ERASED) Transfer Transfer Reason: Exceeds level of care (Nephrology, Infectious Disease, Alcohol withdrawal) Time Spoke to Accepting Phy: 06:15 Transfer Progress Notes D/w Dr. Arreola through the [facility] access center for [facility]. I discussed with her the presentation of the patient 2 days ago with findings of a UTI and history of Pseudomonas in his urine. His preliminary culture does show Pseudomonas again this time. He is having worsening renal function with baseline creatinine around 3 but currently he is up to 4.26. This is up from 3.9 on October 24. He has not had an alcohol drink for 24 hours and was feeling jittery and tremors. He denies having a history of seizures with withdrawal from alcohol but does admit to getting tremors. He was wanting to quit drinking and he wanted to help with his kidneys as well as a urine infection. He has received levofloxacin 500 mg on the then repeated dose today. From an alcohol standpoint he has heart rate 100-110 sinus tachycardia. He has hypertension with blood pressure 171/94. will treat with Ativan 1 mg po for tremors and withdrawal. She accepted pt on behalf of Dr. Yanez. Transfer Facility: [facility] Method of Transfer: EMS Departure-Patient Inst. Referrals: NO,LOCAL PHYSICIAN (PCP/Family) Primary Care Physician Patient Instructions: ALCOHOL AND SUBSTANCE ABUSE SONNY DAVID MD Oct 26, 2022 01:33
[2022-10-26] MEDS ORDERED: NS IV 500 ML 500 ML IV SCH (02:00)
[2022-10-26 02:21] LABS: BASOPHILS # (AUTO) 0.1 10^3/uL (0.0-0.1); BASOPHILS % (AUTO) 1 % (0-10); EOSINOPHILS # (AUTO) 0.2 10^3/uL (0.0-0.3); EOSINOPHILS % (AUTO) 2 % (0-10); HEMATOCRIT 39 % (40-54); HEMOGLOBIN 12.6 g/dL (13.3-17.7); LYMPHOCYTES # (AUTO) 1.3 10^3/uL (1.0-4.0); LYMPHOCYTES % (AUTO) 13 % (12-44); MEAN CORPUSCULAR HEMOGLOBIN 33 pg (25-34); MEAN CORPUSCULAR HGB CONC 33 g/dL (32-36); MEAN CORPUSCULAR VOLUME 102 fL (80-99); MEAN PLATELET VOLUME 10.7 fL (9.0-12.2); MONOCYTES # (AUTO) 0.6 10^3/uL (0.0-1.0); MONOCYTES % (AUTO) 7 % (0-12); NEUTROPHILS # (AUTO) 7.4 10^3/uL (1.8-7.8); NEUTROPHILS % (AUTO) 77 % (42-75); PLATELET COUNT 129 10^3/uL (130-400); WHITE BLOOD COUNT 9.6 10^3/uL (4.3-11.0)
[2022-10-26 02:43] LABS: SODIUM 140 MMOL/L (135-145)
[2022-10-26 02:44] LABS: ALKALINE PHOSPHATASE 92 U/L (40-136); BILIRUBIN,TOTAL 0.5 MG/DL (0.1-1.0); BUN/CREATININE RATIO 11; CALCIUM 8.6 MG/DL (8.5-10.1); CARBON DIOXIDE 12 MMOL/L (21-32); CHLORIDE 113 MMOL/L (98-107); CREATININE SERUM 4.26 MG/DL (0.60-1.30); GFR ESTIMATED 15; GLUCOSE 63 MG/DL (70-105); POTASSIUM 5.3 MMOL/L (3.6-5.0)
[2022-10-26 02:45] LABS: ACETAMINOPHEN < 10 UG/ML (10-30); ALANINE AMINOTRANSFERASE 8 U/L (0-55); SALICYLATE < 0.3 MG/DL (5.0-20.0); TOTAL PROTEIN 7.6 GM/DL (6.4-8.2)
[2022-10-26 06:09] LABS: BILIRUBIN,URINE NEGATIVE (NEGATIVE); CLARITY,URINE CLOUDY; COLOR,URINE YELLOW; GLUCOSE, URINE (UA) NEGATIVE (NEGATIVE); KETONES,URINE TRACE (NEGATIVE); LEUKOCYTE ESTERASE ,URINE 3+ (NEGATIVE); NITRITE,URINE NEGATIVE (NEGATIVE); PROTEIN,URINE 2+ (NEGATIVE)
[2022-10-26 06:21] LABS: BACTERIA,URINE LARGE /HPF; SQUAMOUS EPITHELIAL CELL,UR 0-2 /HPF; WBC,URINE >100 /HPF
[2022-10-26 06:23] LABS: AMPHETAMINE SCREEN, URINE NEGATIVE (NEGATIVE); BARBITURATE SCREEN URINE NEGATIVE (NEGATIVE); BENZODIAZEPINES SCREEN URINE NEGATIVE (NEGATIVE); CANNABINOID SCREEN, URINE POSITIVE (NEGATIVE); COCAINE SCREEN URINE NEGATIVE (NEGATIVE); METHADONE STAT NEGATIVE (NEGATIVE); OPIATE SCREEN URINE NEGATIVE (NEGATIVE); OXYCODONE STAT NEGATIVE (NEGATIVE); PROPOXYPHENE STAT NEGATIVE (NEGATIVE); TRICYCLIC ANTIDEPRESSANTS SCRE NEGATIVE (NEGATIVE)
[2022-10-26] MEDS ORDERED: LORazepam 0.5 MG (ATIVAN) TABLET PO STA (06:25)
[2022-10-26 08:00] VITALS: BP 148/81
== END 2022-10-26 08:00 | disposition short-term general hospital (02) ==
LOC: EDUNIT# 22:27 → ER FS 22:29
DX: F10.139 Alcohol abuse with withdrawal, unspecified (principal); N30.00 Acute cystitis without hematuria; I13.0 Hypertensive heart and chronic kidney disease with heart failure and stage 1 through stage 4 chronic kidney disease, or unspecified chronic kidney disease; N18.9 Chronic kidney disease, unspecified; N17.9 Acute kidney failure, unspecified; D63.1 Anemia in chronic kidney disease; E66.9 Obesity, unspecified; Y90.0 Blood alcohol level of less than 20 mg/100 ml; Z68.33 Body mass index [BMI] 33.0-33.9, adult; Z79.899 Other long term (current) drug therapy; Z28.310 Unvaccinated for COVID-19
CPT/HCPCS: 36415; 80053; 80306; 81000; 85025; 87088; 99284; G0480 ×3; 80320; 80329

== ENCOUNTER 2022-11-23 12:31 | Emergency (ER) | payer MEDICAID ==
[~2022-11-23] VITALS: Ht 182.9 cm; Wt 109.2 kg
--- NOTE | 2022-11-23 12:52 | ED GU-Male ---
General Chief Complaint: Back Problems Stated Complaint: LT FLANK PAIN History of Present Illness Date Seen by Provider: Nov 23, 2022 Time Seen by Provider: 12:47 Initial Comments 62-year-old male with PMH of HTN/recurrent UTI/ dilated cardiomyopathy, is here with complaints of left-sided flank pain which began yesterday. Patient's most recent UTI was 1 month ago. Patient has a history of a stone which she has not passed. Pain appears to be waxing and waning and nonradiating. Patient states that he only drinks approximately 2 glasses of water per day. Denies dysuria, fever and chills, chest pain, diarrhea, nausea and vomiting. Allergies and Home Medications Allergies Coded Allergies: codeine (Verified Allergy, Severe, Anaphylaxis, 04/11/22) Patient Home Medication List Home Medication List Reviewed: Yes Acetaminophen (Tylenol Extra Strength) 500 Mg Tablet, 1,000 MG PO Q8H PRN for PAIN-MILD (1-4), (Reported) Entered as Reported by: ADRIANA WILSON on 05/29/22 1008 Ascorbic Acid (Vitamin C) 500 Mg Tablet, 500 MG PO DAILY, (Reported) Entered as Reported by: ADRIANA WILSON on 05/29/22 1008 Cholecalciferol (Vitamin D3) (Vitamin D3) 50 Mcg (2000 Unit) Capsule, 50 MCG PO DAILY, (Reported) Entered as Reported by: ADRIANA WILSON on 05/29/22 1008 Dicyclomine HCl (Dicyclomine HCl) 10 Mg Capsule, 10 MG PO Q6H PRN for ABDOMINAL PAIN Prescribed by: SONNY DAVID on 10/24/22 0607 Fluconazole (Fluconazole) 100 Mg Tablet, 100 MG PO DAILY Prescribed by: ISAÍAS VALENZUELA on 07/02/22 112 Levofloxacin (Levofloxacin) 750 Mg Tablet, 750 MG PO Q48H Prescribed by: ISAÍAS VALENZUELA on 07/02/22 112 Levofloxacin (Levofloxacin) 500 Mg Tablet, 500 MG PO Q48H Prescribed by: SONNY DAVID on 10/24/22 0644 Magnesium Oxide (Magnesium) 400 Mg Magnesium Tablet, 400 MG PO DAILY, (Reported) Entered as Reported by: ADRIANA WILSON on 05/29/22 1008 Pantoprazole Sodium (Pantoprazole Sodium) 40 Mg Tablet.dr, 40 MG PO DAILY Prescribed by: SONNY DAVID on 10/24/22 0607 Rivaroxaban (Xarelto Starter Pack) 15 Mg (42)- 20 Mg (9) Tab.ds.pk, 1 EACH PO UD Prescribed by: ISAÍAS VALENZUELA on 07/02/22 1122 Sodium Bicarbonate (Sodium Bicarbonate) 650 Mg Tablet, 650 MG PO TID Prescribed by: ISAÍAS VALENZUELA on 07/02/22 1122 Review of Systems Review of Systems Constitutional: no symptoms reported EENTM: no symptoms reported Respiratory: no symptoms reported Cardiovascular: no symptoms reported Gastrointestinal: no symptoms reported Genitourinary: frequency, flank pain Musculoskeletal: no symptoms reported Skin: no symptoms reported Psychiatric/Neurological: No Symptoms Reported Endocrine: No Symptoms Reported Hematologic/Lymphatic: No Symptoms Reported Past [id number] Hx Immunizations Up To Date First/Initial COVID19 Vaccinat: Denies Second COVID19 Vaccination Hector: Denies Third COVID19 Vaccination Date: Denies Past Medical History Surgery/Hospitalization HX: chronic renal failure, peripheral edema; CHF, noncompliance Surgeries: Yes (TERP , groin I&D and debridement) Testicular Respiratory: No Currently Using CPAP: No Currently Using BIPAP: No Cardiac: Yes Cardiomyopathy, Chronic Edema/Swelling, Hypertension Neurological: No Genitourinary: Yes (marie's gangrene) Benign Prostatic Hyperpl, Kidney Infection, Renal Failure Gastrointestinal: No Musculoskeletal: No Endocrine: No HEENT: No Loss of Vision: Denies Hearing Impairment: Denies Cancer: No Psychosocial: No Integumentary: Yes Recent Skin Changes Family Medical History Cancer, Diabetes Physical Exam Vital Signs Vital Signs - First Documented 11/23/22 13:10 Temp 36.4 Pulse 93 Resp 16 B/P (MAP) 154/97 (116) Pulse Ox 100 O2 Delivery Room Air Capillary Refill : Height, Weight, BMI Height: '" Weight: lbs. oz. kg; 30.00 BMI Method: General Appearance: WD/WN, no apparent distress HEENT: PERRL/EOMI Neck: full range of motion Cardiovascular: regular rate, rhythm Respiratory: chest non-tender, lungs clear Gastrointestinal: normal bowel sounds, non tender, soft Back: normal inspection, no vertebral tenderness, CVA tenderness (L) Extremities: normal range of motion Neurologic/Psychiatric: alert, normal mood/affect, oriented x 3 Skin: normal color Lymphatic: no adenopathy Progress/Results/Core Measures Suspected Sepsis SIRS Temperature: Pulse: Respiratory Rate: Laboratory Tests 11/23/22 13:25: White Blood Count 8.2 Blood Pressure / Mean: Laboratory Tests 11/23/22 13:25: Creatinine 4.01H, Platelet Count 111L, Total Bilirubin 0.3 Results/Orders Lab Results Laboratory Tests Test 11/23/22 12:42 11/23/22 13:25 Range/Units Urine Color YELLOW Urine Clarity TURBID H Urine pH 6.5 5-9 Urine Specific Rush 1.015 L 1.016-1.022 Urine Protein 2+ H NEGATIVE Urine Glucose (UA) NEGATIVE NEGATIVE Urine Ketones NEGATIVE NEGATIVE Urine Nitrite POSITIVE H NEGATIVE Urine Bilirubin NEGATIVE NEGATIVE Urine Urobilinogen 0.2 < = 1.0 MG/DL Urine Leukocyte Esterase 3+ H NEGATIVE Urine RBC (Auto) 2+ H NEGATIVE Urine RBC 2-5 H /HPF Urine WBC TNTC H /HPF Urine Squamous Epithelial Cells NONE /HPF Urine Crystals NONE /LPF Urine Bacteria LARGE H /HPF Urine Casts NONE /LPF Urine Mucus NEGATIVE /LPF Urine Culture Indicated YES Urine Opiates Screen NEGATIVE NEGATIVE Urine Oxycodone Screen NEGATIVE NEGATIVE Urine Methadone Screen NEGATIVE NEGATIVE Urine Propoxyphene Screen NEGATIVE NEGATIVE Urine Barbiturates Screen NEGATIVE NEGATIVE Ur Tricyclic Antidepressants Screen NEGATIVE NEGATIVE Urine Phencyclidine Screen NEGATIVE NEGATIVE Urine Amphetamines Screen NEGATIVE NEGATIVE Urine Methamphetamines Screen NEGATIVE NEGATIVE Urine Benzodiazepines Screen NEGATIVE NEGATIVE Urine Cocaine Screen NEGATIVE NEGATIVE Urine Cannabinoids Screen POSITIVE H NEGATIVE White Blood Count 8.2 4.3-11.0 10^3/uL Red Blood Count 3.62 L 4.30-5.52 10^6/uL Hemoglobin 12.2 L 13.3-17.7 g/dL Hematocrit 37 L 40-54 % Mean Corpuscular Volume 103 H 80-99 fL Mean Corpuscular Hemoglobin 34 25-34 pg Mean Corpuscular Hemoglobin Concent 33 32-36 g/dL Red Cell Distribution Width 16.6 H 10.0-14.5 % Platelet Count 111 L 130-400 10^3/uL Mean Platelet Volume 10.8 9.0-12.2 fL Immature Granulocyte % (Auto) 1 % Neutrophils (%) (Auto) 75 42-75 % Lymphocytes (%) (Auto) 12 12-44 % Monocytes (%) (Auto) 9 0-12 % Eosinophils (%) (Auto) 4 0-10 % Basophils (%) (Auto) 1 0-10 % Neutrophils # (Auto) 6.1 1.8-7.8 10^3/uL Lymphocytes # (Auto) 1.0 1.0-4.0 10^3/uL Monocytes # (Auto) 0.7 0.0-1.0 10^3/uL Eosinophils # (Auto) 0.3 0.0-0.3 10^3/uL Basophils # (Auto) 0.1 0.0-0.1 10^3/uL Immature Granulocyte # (Auto) 0.1 0.0-0.1 10^3/uL Sodium Level 137 135-145 MMOL/L Potassium Level 4.2 3.6-5.0 MMOL/L Chloride Level 111 H 98-107 MMOL/L Carbon Dioxide Level 14 L 21-32 MMOL/L Anion Gap 12 5-14 MMOL/L Blood Urea Nitrogen 36 H 7-18 MG/DL Creatinine 4.01 H 0.60-1.30 MG/DL Estimat Glomerular Filtration Rate 16 BUN/Creatinine Ratio 9 Glucose Level 95 70-105 MG/DL Calcium Level 8.3 L 8.5-10.1 MG/DL Corrected Calcium 8.6 8.5-10.1 MG/DL Total Bilirubin 0.3 0.1-1.0 MG/DL Aspartate Amino Transf (AST/SGOT) 14 5-34 U/L Alanine Aminotransferase (ALT/SGPT) 8 0-55 U/L Alkaline Phosphatase 89 40-136 U/L Total Protein 7.2 6.4-8.2 GM/DL Albumin 3.6 3.2-4.5 GM/DL Lipase 56 8-78 U/L Serum Alcohol < 10 <10 MG/DL My Orders Orders - SHANAE AMADO MD Alcohol (11/23/22 12:50) Cbc With Automated Diff (11/23/22 12:50) Comprehensive Metabolic Panel (11/23/22 12:50) Drug Screen Stat (Urine) (11/23/22 12:50) Lipase (11/23/22 12:50) Ua Culture If Indicated (11/23/22 12:50) Urine Culture (11/23/22 12:42) Ed Iv/Invasive Line Start (11/23/22 13:59) Ns Iv 1000 Ml (Sodium Chloride 0.9%) (11/23/22 14:00) Ceftriaxone Iv/Im (Rocephin Iv/Im) (11/23/22 13:59) Ct Abdomen/Pelvis Wo (11/23/22 14:13) Levofloxacin 750 Mg/150 Ml Iv (Levaquin (11/23/22 15:15) Medications Given in ED Current Medications Medications Dose Ordered Sig/Jessica Route Start Time Stop Time Status Last Admin Dose Admin Levofloxacin/ Dextrose 150 ml @ 100 mls/hr ONCE ONCE IV 11/23/22 15:15 11/23/22 16:44 11/23/22 15:08 100 MLS/HR Vital Signs/I&O 11/23/22 13:10 Temp 36.4 Pulse 93 Resp 16 B/P (MAP) 154/97 (116) Pulse Ox 100 O2 Delivery Room Air Capillary Refill : Progress Note : Progress Note 1. ACUTE CYSTITIS WITH HEMATURIA WITH POSSIBLE EARLY DEVELOPING PYELONEPHRITIS: - CT ABD:see report - CBC: normal WBC - UA is positive for nitrates, leukocyte esterase, RBC, WBC, and bacteria -UDS is positive for marijuana - NS IVF bolus STAT/ Ceftriaxone 1gm iv STAT - Pharmacy called and recommended Levaquin since pt has a history of pseudomonas UTI in thepast - Levaquin 750mg iv STAT, and prescription for oral Levaquin 500mg Q48 for 7 days of medication due to poor kidney function. - Follow up with PCP and Urology within one week. Schedule appointment. -The patient was seen in the ED, and treated appropriately to presentation at a specific point in time. Patient is informed that there is a possibility that disease and illness can evolve and change in acuity rapidly or slowly after patient is discharged from the ER. Precautionary advice given to the patient for immediate return to ER if symptoms worsen or do not resolve, and to seek emergency care sooner rather than later. Pt also advised on the importance of PCP follow up and compliance with management and follow up plan with PCP and/or specialist, as this is part of the management plan. Pt verbally expressed understanding. 2. CKD & URINARY RETENTION: - CMP: Serum creatinine is 4.01, BUN is 36 - Prescription also given for Flomax 3. MARIJUANA ABUSE: -Marijuana cessation advised Departure Impression Primary Impression: Acute cystitis without hematuria Additional Impressions: Marijuana abuse CKD (chronic kidney disease) Urinary retention Disposition: HOME, SELF-CARE Condition: Stable Departure-Patient Inst. Referrals: NO,LOCAL PHYSICIAN (PCP/Family) Primary Care Physician Patient Instructions: Acute Cystitis (DC), Marijuana Use and Addiction (DC), Chronic Kidney Disease (DC), Cannabis Use Disorder, Urinary Retention, Urinary Retention (DC) Add. Discharge Instructions: prescription for oral Levaquin 500mg Q48 for 7 days of medication. Prescription also given for Flomax - Follow up with PCP and Urology within one week. Schedule appointment. All discharge instructions reviewed with patient and/or family. Voiced understanding. Scripts Levofloxacin (Levofloxacin) 750 Mg Tablet 750 MG PO Q48H for 7 Days, #7 TAB Prov: SHANAE AMADO MD 11/23/22 Tamsulosin HCl (Flomax) 0.4 Mg Cap 0.4 MG PO DAILY for 30 Days, #30 CAP Prov: SHANAE AMADO MD 11/23/22 SHANAE AMADO MD Nov 23, 2022 12:52
[2022-11-23 13:40] LABS: BASOPHILS # (AUTO) 0.1 10^3/uL (0.0-0.1); BASOPHILS % (AUTO) 1 % (0-10); EOSINOPHILS # (AUTO) 0.3 10^3/uL (0.0-0.3); EOSINOPHILS % (AUTO) 4 % (0-10); HEMATOCRIT 37 % (40-54); HEMOGLOBIN 12.2 g/dL (13.3-17.7); LYMPHOCYTES % (AUTO) 12 % (12-44); MEAN CORPUSCULAR HEMOGLOBIN 34 pg (25-34); MEAN CORPUSCULAR HGB CONC 33 g/dL (32-36); MEAN CORPUSCULAR VOLUME 103 fL (80-99); MEAN PLATELET VOLUME 10.8 fL (9.0-12.2); MONOCYTES # (AUTO) 0.7 10^3/uL (0.0-1.0); MONOCYTES % (AUTO) 9 % (0-12); NEUTROPHILS # (AUTO) 6.1 10^3/uL (1.8-7.8); NEUTROPHILS % (AUTO) 75 % (42-75); PLATELET COUNT 111 10^3/uL (130-400); WHITE BLOOD COUNT 8.2 10^3/uL (4.3-11.0)
[2022-11-23 13:49] LABS: CLARITY,URINE TURBID; COLOR,URINE YELLOW; GLUCOSE, URINE (UA) NEGATIVE (NEGATIVE); KETONES,URINE NEGATIVE (NEGATIVE); NITRITE,URINE POSITIVE (NEGATIVE); PH,URINE 6.5 (5-9); PROTEIN,URINE 2+ (NEGATIVE)
[2022-11-23 13:50] LABS: BACTERIA,URINE LARGE /HPF; BILIRUBIN,URINE NEGATIVE (NEGATIVE); LEUKOCYTE ESTERASE ,URINE 3+ (NEGATIVE); WBC,URINE TNTC /HPF
[2022-11-23 13:51] LABS: AMPHETAMINE SCREEN, URINE NEGATIVE (NEGATIVE); BARBITURATE SCREEN URINE NEGATIVE (NEGATIVE); BENZODIAZEPINES SCREEN URINE NEGATIVE (NEGATIVE); CANNABINOID SCREEN, URINE POSITIVE (NEGATIVE); COCAINE SCREEN URINE NEGATIVE (NEGATIVE); METHADONE STAT NEGATIVE (NEGATIVE); OPIATE SCREEN URINE NEGATIVE (NEGATIVE); OXYCODONE STAT NEGATIVE (NEGATIVE); PROPOXYPHENE STAT NEGATIVE (NEGATIVE); TRICYCLIC ANTIDEPRESSANTS SCRE NEGATIVE (NEGATIVE)
[2022-11-23] MEDS ORDERED: cefTRIAXone IV/IM 1,000 MG in NS (IVPB) 50 ML IV STA (13:59)
[2022-11-23] MEDS ORDERED: NS IV 1000 ML 1,000 ML IV SCH (14:00)
[2022-11-23 14:07] LABS: ALANINE AMINOTRANSFERASE 8 U/L (0-55); ALKALINE PHOSPHATASE 89 U/L (40-136); BILIRUBIN,TOTAL 0.3 MG/DL (0.1-1.0); BUN/CREATININE RATIO 9; CALCIUM 8.3 MG/DL (8.5-10.1); CARBON DIOXIDE 14 MMOL/L (21-32); CHLORIDE 111 MMOL/L (98-107); CREATININE SERUM 4.01 MG/DL (0.60-1.30); GFR ESTIMATED 16; GLUCOSE 95 MG/DL (70-105); POTASSIUM 4.2 MMOL/L (3.6-5.0); SODIUM 137 MMOL/L (135-145)
[2022-11-23 14:08] LABS: ALBUMIN 3.6 GM/DL (3.2-4.5); LIPASE 56 U/L (8-78); TOTAL PROTEIN 7.2 GM/DL (6.4-8.2)
--- NOTE | 2022-11-23 14:57 | Diagnostic Imaging Report ---
PROCEDURE: CT abdomen and pelvis without contrast. TECHNIQUE: Multiple contiguous axial images were obtained through the abdomen and pelvis without the use of intravenous contrast. Auto Exposure Controls were utilized during the CT exam to meet ALARA standards for radiation dose reduction. INDICATION: Left flank pain COMPARISON: 10/24/2022 FINDINGS: There is atelectasis at the right lung base with eventration and elevation of the right hemidiaphragm. The heart is normal in size. There is no pericardial effusion. The liver has a hypodense lesion posteriorly measuring about 1 cm in size which is stable since the prior study, most likely a small cyst or hemangioma. The spleen appears normal. The pancreas is unremarkable. The adrenal glands appear mildly thickened and there is a right adrenal nodule measuring 1.7 cm with Hounsfield units of 15, most likely an adenoma. This is stable since the prior study. The right kidney is atrophic and demonstrates numerous hypodense and hyperdense lesions which are stable since the prior exam and most likely cysts. The left kidney also has hypodense and hyperdense lesions. There is mild perirenal edema. There is no hydronephrosis bilaterally. There is no significant hydroureter. There is wall thickening and irregularity of the urinary bladder. The bowel loops are nondistended without obstruction. The appendix is normal. There is diverticulosis of the colon, particularly distally, without diverticulitis. There is a fat density lipoma in the sigmoid colon measuring 2.4 cm in size. No free fluid or free air is seen. There is a small fat-containing midline ventral hernia measuring about 2.4 cm in size. There does appear to be a large right inguinal hernia containing marked fluid which extends into the anterior right thigh. Small internal density may represent the testicle. There are degenerative changes in the spine. IMPRESSION: 1. Atrophic appearing kidneys with multiple small masses, most likely cysts. There is no hydronephrosis. There is surrounding perirenal fat stranding and infection is not excluded. 2. Wall thickening of the urinary bladder, likely due to chronic outlet obstruction although infection is in the differential. 3. Large right inguinal hernia containing marked fluid extending into the scrotum and anterior right thigh. Dictated by: Dictated on workstation # [id number]
[2022-11-23] MEDS ORDERED: LEVO750T PO (15:18)
[2022-11-23] MEDS ORDERED: TMSL.4C PO (15:18)
[2022-11-23 16:36] VITALS: BP 143/82
== END 2022-11-23 16:48 | disposition home or self-care (01) ==
LOC: EDUNIT# 12:31 → ER FS 12:32
DX: N30.00 Acute cystitis without hematuria (principal); I13.0 Hypertensive heart and chronic kidney disease with heart failure and stage 1 through stage 4 chronic kidney disease, or unspecified chronic kidney disease; N18.9 Chronic kidney disease, unspecified; I50.9 Heart failure, unspecified; F12.10 Cannabis abuse, uncomplicated; Z87.442 Personal history of urinary calculi; Z28.310 Unvaccinated for COVID-19
CPT/HCPCS: 36415; 74176; 80053; 80306; 81000; 83690; 85025; 87077; 87088; 87186; 99284; G0480; 80320

== ENCOUNTER 2022-11-25 00:51 | Emergency (ER) | payer MEDICAID ==
[~2022-11-25] VITALS: Ht 182.8 cm; Wt 109.0 kg
[~2022-11-25 00:51] MED LIST changes: +TMSL.4C PO
[2022-11-25] MEDS ORDERED: NS IV 1000 ML 1,000 ML IV STA (01:11)
--- NOTE | 2022-11-25 01:19 | ED Dyspnea ---
General Chief Complaint: Respiratory Problems Stated Complaint: SOB Source of Information: Patient History of Present Illness Date Seen by Provider: Nov 25, 2022 Time Seen by Provider: 00:59 Initial Comments 62-year-old male presenting with complaints of shortness of breath and pain on the right side of his chest. He states that the shortness of breath woke him up about 4 hours prior to arrival in the ED. He is homeless and lives out of his van. He does not take care of himself and is noncompliant with medications and follow-up. He has known chronic kidney disease and alcoholism. He has chronic swelling and venous stasis changes to his bilateral lower extremities. He has recently been discharged from [facility] when he was admitted for alcohol withdrawal and renal failure. He states he has had 1 episode of vomiting tonight as well as he has had diarrhea. He took a dose of Levaquin a few days ago. He feels like he cannot catch his breath. He had a DVT in June 2022 and did not finish out anticoagulation therapy for that. He was seen Saturday afternoon 11/23 for left flank pain and diagnosed with UTI and given a dose of Levaquin and prescription to finish out a course for UTI. Timing/Duration: 4-6 Hours Severity: Severe Activities at Onset: Sleeping Prior Episodes/Possible Cause: Occasional Episodes Modifying Factors: Worse With Activity Associated Symptoms: Anxiety, Chest Pain (right sided chest pain), Cough, Wheezing Allergies and Home Medications Allergies Coded Allergies: codeine (Verified Allergy, Severe, Anaphylaxis, 04/11/22) Patient Home Medication List Home Medication List Reviewed: Yes Acetaminophen (Tylenol Extra Strength) 500 Mg Tablet, 1,000 MG PO Q8H PRN for PAIN-MILD (1-4), (Reported) Entered as Reported by: ADRIANA WILSON on 05/29/22 100 Ascorbic Acid (Vitamin C) 500 Mg Tablet, 500 MG PO DAILY, (Reported) Entered as Reported by: ADRIANA WILSON on 05/29/22 100 Cholecalciferol (Vitamin D3) (Vitamin D3) 50 Mcg (2000 Unit) Capsule, 50 MCG PO DAILY, (Reported) Entered as Reported by: ADRIANA WILSON on 05/29/22 1008 Dicyclomine HCl (Dicyclomine HCl) 10 Mg Capsule, 10 MG PO Q6H PRN for ABDOMINAL PAIN Prescribed by: SONNY DAVID on 10/24/22 0607 Fluconazole (Fluconazole) 100 Mg Tablet, 100 MG PO DAILY Prescribed by: ISAÍAS VALENZUELA on 07/02/22 112 Levofloxacin (Levofloxacin) 750 Mg Tablet, 750 MG PO Q48H Prescribed by: ISAÍAS VALENZUELA on 07/02/22 112 Levofloxacin (Levofloxacin) 500 Mg Tablet, 500 MG PO Q48H Prescribed by: SONNY DAVID on 10/24/22 0644 Levofloxacin (Levofloxacin) 750 Mg Tablet, 750 MG PO Q48H Prescribed by: SHANAE AMADO MD on 11/23/22 1518 Magnesium Oxide (Magnesium) 400 Mg Magnesium Tablet, 400 MG PO DAILY, (Reported) Entered as Reported by: ADRIANA WILSON on 05/29/22 1008 Pantoprazole Sodium (Pantoprazole Sodium) 40 Mg Tablet.dr, 40 MG PO DAILY Prescribed by: SONNY DAVID on 10/24/22 0607 Rivaroxaban (Xarelto Starter Pack) 15 Mg (42)- 20 Mg (9) Tab.ds.pk, 1 EACH PO UD Prescribed by: ISAÍAS VALENZUELA on 07/02/22 112 Sodium Bicarbonate (Sodium Bicarbonate) 650 Mg Tablet, 650 MG PO TID Prescribed by: ISAÍAS VALENZUELA on 07/02/22 112 Tamsulosin HCl (Flomax) 0.4 Mg Cap, 0.4 MG PO DAILY Prescribed by: SHANAE AMADO MD on 11/23/22 1518 Review of Systems Review of Systems Constitutional: No chills, No fever; malaise EENTM: no symptoms reported Respiratory: see HPI, cough, short of breath Cardiovascular: see HPI, chest pain (right sided), edema (chronic BLE edema) Gastrointestinal: diarrhea, vomiting (x1 tonight) Genitourinary: dysuria Musculoskeletal: no symptoms reported Skin: no symptoms reported Psychiatric/Neurological: Anxiety Past Tapawxg-Ueemfs-Baiybf Hx Patient Social History Tobacco Use?: Yes Tobacco type used: Cigarettes Immunizations Up To Date First/Initial COVID19 Vaccinat: Denies Second COVID19 Vaccination Hector: Denies Third COVID19 Vaccination Date: Denies Past Medical History Surgery/Hospitalization HX: chronic renal failure, peripheral edema; CHF, noncompliance, Alcoholism Surgeries: Yes (TERP , groin I&D and debridement) Testicular Respiratory: No Currently Using CPAP: No Currently Using BIPAP: No Cardiac: Yes Cardiomyopathy, Chronic Edema/Swelling, Hypertension Neurological: No Genitourinary: Yes (marie's gangrene) Benign Prostatic Hyperpl, Kidney Infection, Renal Failure Gastrointestinal: No Musculoskeletal: No Endocrine: No HEENT: No Loss of Vision: Denies Hearing Impairment: Denies Cancer: No Psychosocial: No Integumentary: Yes Recent Skin Changes Family Medical History Cancer, Diabetes Physical Exam Vital Signs Vital Signs - First Documented 11/25/22 00:56 Temp 36.5 Pulse 126 Resp 22 B/P (MAP) 173/88 (116) Pulse Ox 99 O2 Delivery Room Air Capillary Refill : Height, Weight, BMI Height: '" Weight: lbs. oz. kg; 32.00 BMI Method: General Appearance: Chronically ill, Obese HEENT: PERRL/EOMI Neck: Full Range of Motion, Normal Inspection, Non Tender, Supple Respiratory: No Accessory Muscle Use, No Respiratory Distress, Decreased Breath Sounds, Wheezing (expiratory) Cardiovascular: Normal Peripheral Pulses, Tachycardia Neurologic/Psychiatric: Alert, Oriented x3 Skin: Warm/Dry Focused Exam Lactate Level 11/25/22 01:15: Lactic Acid Level 1.56 Lactic Acid Level Laboratory Tests Test 11/25/22 01:15 Lactic Acid Level 1.56 MMOL/L (0.50-2.00) Progress/Results/Core Measures Results/Orders Lab Results Laboratory Tests Test 11/25/22 01:15 Range/Units White Blood Count 10.5 4.3-11.0 10^3/uL Red Blood Count 3.95 L 4.30-5.52 10^6/uL Hemoglobin 13.5 13.3-17.7 g/dL Hematocrit 40 40-54 % Mean Corpuscular Volume 102 H 80-99 fL Mean Corpuscular Hemoglobin 34 25-34 pg Mean Corpuscular Hemoglobin Concent 33 32-36 g/dL Red Cell Distribution Width 16.5 H 10.0-14.5 % Platelet Count 139 130-400 10^3/uL Mean Platelet Volume 10.2 9.0-12.2 fL Immature Granulocyte % (Auto) 1 % Neutrophils (%) (Auto) 80 H 42-75 % Lymphocytes (%) (Auto) 10 L 12-44 % Monocytes (%) (Auto) 7 0-12 % Eosinophils (%) (Auto) 2 0-10 % Basophils (%) (Auto) 1 0-10 % Neutrophils # (Auto) 8.4 H 1.8-7.8 10^3/uL Lymphocytes # (Auto) 1.1 1.0-4.0 10^3/uL Monocytes # (Auto) 0.7 0.0-1.0 10^3/uL Eosinophils # (Auto) 0.2 0.0-0.3 10^3/uL Basophils # (Auto) 0.1 0.0-0.1 10^3/uL Immature Granulocyte # (Auto) 0.1 0.0-0.1 10^3/uL Sodium Level 141 135-145 MMOL/L Potassium Level 4.5 3.6-5.0 MMOL/L Chloride Level 110 H 98-107 MMOL/L Carbon Dioxide Level 14 L 21-32 MMOL/L Anion Gap 17 H 5-14 MMOL/L Blood Urea Nitrogen 36 H 7-18 MG/DL Creatinine 3.96 H 0.60-1.30 MG/DL Estimat Glomerular Filtration Rate 16 BUN/Creatinine Ratio 9 Glucose Level 80 70-105 MG/DL Lactic Acid Level 1.56 0.50-2.00 MMOL/L Calcium Level 8.9 8.5-10.1 MG/DL Corrected Calcium 8.9 8.5-10.1 MG/DL Total Bilirubin 0.4 0.1-1.0 MG/DL Aspartate Amino Transf (AST/SGOT) 12 5-34 U/L Alanine Aminotransferase (ALT/SGPT) 9 0-55 U/L Alkaline Phosphatase 102 40-136 U/L C-Reactive Protein 0.64 H <0.50 MG/DL Total Protein 7.6 6.4-8.2 GM/DL Albumin 4.0 3.2-4.5 GM/DL Serum Alcohol < 10 <10 MG/DL Influenza Type A (RT-PCR) Not Detected Not Detecte Influenza Type B (RT-PCR) Not Detected Not Detecte SARS-CoV-2 RNA (RT-PCR) Not Detected Not Detecte My Orders Orders - SONNY DAVID MD Cbc With Automated Diff (11/25/22 01:11) Comprehensive Metabolic Panel (11/25/22 01:11) Blood Culture (11/25/22 01:11) Ekg Tracing (11/25/22 01:11) Ed Iv/Invasive Line Start (11/25/22 01:11) Monitor-Rhythm Ecg Trace Only (11/25/22 01:11) Crp Fs (11/25/22 01:11) Lactic Acid Analyzer (11/25/22 01:11) Covid 19 Inhouse Test (11/25/22 01:11) Ct Angio Chest W (11/25/22 01:11) Influenza A And B By Pcr (11/25/22 01:11) Isolation Central Supply Req (11/25/22 01:11) Ns Iv 1000 Ml (Sodium Chloride 0.9%) (11/25/22 01:11) Alcohol (11/25/22 01:11) Iohexol Injection (Omnipaque 350 Mg/Ml 1 (11/25/22 02:15) Received Contrast (Hold Metformin- Contr (11/25/22 02:15) Sodium Chloride Flush (Catheter Flush Sy (11/25/22 02:15) Ns (Ivpb) (Sodium Chloride 0.9% Ivpb Bag (11/25/22 02:15) Albuterol/Ipra Inhalation Soln (Duoneb I (11/25/22 02:07) Svn Small Volume Nebulizer (11/25/22 02:07) Rx-Albuterol Inhaler (Rx-Ventolin Hfa In (11/25/22 02:43) Nursing Communication (Order) (11/25/22 02:43) Medications Given in ED Current Medications Medications Dose Ordered Sig/Jessica Route Start Time Stop Time Status Last Admin Dose Admin Iohexol 70 ml ONCE ONCE IV 11/25/22 02:15 11/25/22 02:16 DC 11/25/22 02:05 70 ML Sodium Chloride 10 ml NEEDED PRN IV 11/25/22 02:15 11/25/22 03:17 DC 11/25/22 02:05 10 ML Sodium Chloride 100 ml ONCE ONCE IV 11/25/22 02:15 11/25/22 02:16 DC 11/25/22 02:05 100 ML Vital Signs/I&O 11/25/22 11/25/22 11/25/22 00:56 02:24 03:00 Temp 36.5 36.3 Pulse 126 108 Resp 22 22 B/P (MAP) 173/88 (116) 139/92 Pulse Ox 99 99 100 O2 Delivery Room Air Room Air Room Air Progress Progress Note #1: Progress Note Potential life-threatening diagnosis of pulmonary embolism, pneumonia, pleural effusion, heart failure, acute on chronic renal failure, hepatic failure. obtain peripheral IV access and send for complete blood count, comprehensive metabolic profile, blood cultures, lactic acid. Electrocardiogram to look for signs of ischemia with his tachycardia. Discussed with the patient that with his recent DVT that he did not complete anticoagulation therapy for he has increased risk for pulmonary embolism and that could be causing his tachycardia as well as shortness of breath and right-sided chest pain. He is not currently hypoxic. His oxygen saturation is 100% on room air. Although he has the chronic renal failure and his GFR is 16-20 with only way I could rule out a pulmonary embolism as a source of his pain and symptoms would be by obtaining the CT angiogram with IV contrast. We will administer IV fluids for hydration to try and help support his kidney function. He might require admission to the hospital somewhere for his chronic renal failure and his shortness of breath. Obtain nasal swab for COVID and influenza to look for other sources for his vikram rtness of breath. Progress Note #2: Time: 02:11 Progress Note Complete blood count appears stable with white blood cell count of 10.5, hemoglobin 13.5. His comprehensive metabolic profile showed stable chronic renal failure with a BUN of 36 and a creatinine of 3.96. His lactic acid was negative at 1.56. His CRP was slightly elevated to 0.64. His COVID and influenza swabs were negative. Alcohol level was less than 10. Given a DuoNeb breathing treatment to try and help with the shortness of breath and cough. Awaiting CT scan report from the [facility] radiology service. On my personal review and interpretation I did not appreciate any acute infiltrate, rib fracture, effusion, pulmonary embolism. Progress Note #3: Time: 02:26 Progress Note I reviewed the radiologist report showing bibasilar atelectasis but no pulmonary embolism or infiltrate. Updated patient and advised to try using albuterol inhaler with a spacer to help with cough and shortness of breath. Stressed importance of contacting [facility] and following up with them on Saturday for continued concerns and symptoms as well as to try and get some social science analyst assistance. He already has a prescription for Levaquin so advised to keep taking that in case there was any bacterial infection that was trying to start in his lungs but again not seeing any obvious infiltrate on the CT scan. Encourage fluids and hydration to try and help with his kidney function. Initial ECG Impression Date: Nov 25, 2022 Initial ECG Impression Time: 01:38 Initial ECG Rate: 98 Initial ECG Rhythm: Normal Sinus Initial ECG Comparisson: Unchanged (Similar to tracing on July 27, 2022) Comment On my personal interpretation and review of his electrocardiogram that shows a sinus rhythm with a heart rate of 98 bpm. ID interval [address] elevation. Incomplete right bundle branch block. QT interval 358 ms with a QTc interval 413 ms. Overall appears similar to prior tracing from July 27, 2022. Diagnostic Imaging Diagonstic Imaging: CT Plain Films/CT/US/NM/MRI: chest Comments CT angiography of the chest with IV contrast Impression: Bibasilar atelectasis. No pulmonary embolus. Read by radiologist Dr. Althea Mckenzie MD at [phone] and faxed at [phone] Reviewed: Reviewed [facility] Study, Reviewed by Me Departure Impression Primary Impression: Shortness of breath Additional Impressions: Bronchitis Chronic renal failure (CRF), stage 4 (severe) Disposition: 01 HOME, SELF-CARE Condition: Stable Departure-Patient Inst. Decision time for Depature: 02:40 Referrals: WILEY SIMMONS MD (PCP/Family) Primary Care Physician Patient Instructions: Bronchitis, Adult ED, Chronic Kidney Disease (DC), How to Use a Metered Dose Inhaler ED, How to Use a Spacer, Shortness of Breath, Adult ED Add. Discharge Instructions: Use inhaler with spacer to help treat for shortness of breath. Stop smoking Establish care with primary care clinic and follow up for continued concerns. May call [facility] at [phone] to get appointment for follow up. May take Mucinex to help with cough and congestion. Continue taking antibiotic as prescribed yesterday, November 23, when you were seen in the Emergency Department. All discharge instructions reviewed with patient and/or family. Voiced understanding. SONNY DAVID MD Nov 25, 2022 01:19
[2022-11-25 01:26] LABS: BASOPHILS # (AUTO) 0.1 10^3/uL (0.0-0.1); BASOPHILS % (AUTO) 1 % (0-10); EOSINOPHILS # (AUTO) 0.2 10^3/uL (0.0-0.3); EOSINOPHILS % (AUTO) 2 % (0-10); HEMATOCRIT 40 % (40-54); HEMOGLOBIN 13.5 g/dL (13.3-17.7); LYMPHOCYTES # (AUTO) 1.1 10^3/uL (1.0-4.0); LYMPHOCYTES % (AUTO) 10 % (12-44); MEAN CORPUSCULAR HEMOGLOBIN 34 pg (25-34); MEAN CORPUSCULAR HGB CONC 33 g/dL (32-36); MEAN CORPUSCULAR VOLUME 102 fL (80-99); MEAN PLATELET VOLUME 10.2 fL (9.0-12.2); MONOCYTES # (AUTO) 0.7 10^3/uL (0.0-1.0); MONOCYTES % (AUTO) 7 % (0-12); NEUTROPHILS # (AUTO) 8.4 10^3/uL (1.8-7.8); NEUTROPHILS % (AUTO) 80 % (42-75); PLATELET COUNT 139 10^3/uL (130-400); WHITE BLOOD COUNT 10.5 10^3/uL (4.3-11.0)
[2022-11-25 01:47] LABS: POTASSIUM 4.5 MMOL/L (3.6-5.0)
[2022-11-25 01:48] LABS: BILIRUBIN,TOTAL 0.4 MG/DL (0.1-1.0); CALCIUM 8.9 MG/DL (8.5-10.1); CREATININE SERUM 3.96 MG/DL (0.60-1.30); TOTAL PROTEIN 7.6 GM/DL (6.4-8.2)
[2022-11-25] MEDS ORDERED: RT-ALBUTEROL/IPRATROPIUM 3 ML (DUONEB) VIAL INH STA (02:07)
[2022-11-25] MEDS ORDERED: NS 100 ML (IVPB) BAG IV ONE (02:15)
[2022-11-25] MEDS ORDERED: IOHEXOL 350 MG/ML 100 ML (OMNIPAQUE 350) VIAL IV ONE (02:15)
[2022-11-25] MEDS ORDERED: CATHETER FLUSH 10 ML SYR IV PRN (02:15)
[2022-11-25] MEDS ORDERED: HOLD METFORMIN - RECEIVED CONTRAST 20 ML VIAL IV SCH (02:15)
[2022-11-25] MEDS ORDERED: RX-ALBUTEROL INHALER 8.5 GM HFA (PROAIR) IH STA (02:43)
[2022-11-25 03:00] VITALS: BP 139/92
--- NOTE | 2022-11-25 06:51 | Diagnostic Imaging Report ---
PROCEDURE: CT angiography of the chest with contrast. TECHNIQUE: Multiple contiguous axial images were obtained through the chest after uneventful bolus administration of intravenous contrast. 3D reconstructed CTA MIP acquisitions were also performed. Auto Exposure Controls were utilized during the CT exam to meet ALARA standards for radiation dose reduction. DATE: November 25, 2022. COMPARISON: Chest radiographs July 27, 2022. INDICATION: 62-year-old male, shortness of breath. Right-sided chest pain. FINDINGS: There is a 3 mm pleurally based left upper lobe pulmonary nodule on axial image 86. There is no otherwise identified pulmonary nodule. There is no lung mass. There is no otherwise noted focal airspace consolidation. There is no pneumothorax. There is no pleural effusion. The central airways are patent. The heart is not enlarged. There is no identified pericardial effusion. There is no identified pulmonary embolus. The main pulmonary artery diameter is within normal limits. There are atherosclerotic calcifications. 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 The renal arteries are widely patent bilaterally. There is no evidence of aortic dissection. There is no identified abnormally enlarged mediastinal, hilar, or axillary lymph node meeting CT size criteria for adenopathy. The gallbladder is distended. There is no CT apparent gallstone or evidence of acute cholecystitis. There is no biliary ductal dilation. There is moderate to severe atrophy of the right kidney. There is a low-attenuation right renal lesion on axial image 146 which measures 1.6 cm in size. Internal attenuation is consistent with a benign cyst. There are subcentimeter renal lesions on the right too small to characterize. There are multilevel degenerative changes of the spine. There are chronic-appearing left rib deformities. There is no identified acute bony abnormality. IMPRESSION: CT CHEST. 1. No identified pulmonary embolus or other acute cardiopulmonary abnormality. 2. 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 Agree with the provided preliminary [facility] report impression. Dictated by: Dictated on workstation # [id number]
== END 2022-11-25 03:00 | disposition home or self-care (01) ==
LOC: EDUNIT# 00:51 → ER FS 00:56
DX: J40 Bronchitis, not specified as acute or chronic (principal); I13.0 Hypertensive heart and chronic kidney disease with heart failure and stage 1 through stage 4 chronic kidney disease, or unspecified chronic kidney disease; N18.4 Chronic kidney disease, stage 4 (severe); I50.9 Heart failure, unspecified; E66.9 Obesity, unspecified; R79.82 Elevated C-reactive protein (CRP); Z68.32 Body mass index [BMI] 32.0-32.9, adult; Z20.822 Contact with and (suspected) exposure to COVID-19; Z28.310 Unvaccinated for COVID-19
CPT/HCPCS: 36415; 71275; 80053; 83605; 85025; 86141; 87040; 87636; 93005; 94640; 99284; G0480; 80320

== ENCOUNTER 2022-11-30 05:09 | Emergency (ER) | payer MEDICAID ==
[2022-11-30] MEDS ORDERED: ASPIRIN 81 MG CHEW (CHILDREN'S ASA) PO ONE (05:30)
--- NOTE | 2022-11-30 05:40 | ED Cardiac General ---
History of Present Illness General Chief Complaint: Cardiac/General Problems Stated Complaint: QUICK HEART BEAT/NECK PAIN Source: patient, old records Exam Limitations: no limitations History of Present Illness Date Seen by Provider: Nov 30, 2022 Time Seen by Provider: 05:13 Initial Comments 62-year-old man with past medical history of CKD, lower extremity edema, CHF, homelessness, alcohol use disorder coming in due to feeling like his heart was racing, and pain up his neck and jaw. Started over 2 hours prior to arrival, constant, throbbing, nothing really seems to make it better or worse. Took Tylenol before he got here as well as Benadryl to try to help him sleep. Did not take any aspirin, does not take any blood thinners. Was seen in the ER for similar complaints roughly 4 days ago, and again 3 days prior to that for a different complaint. He is denying any chest pain, abdominal pain, nausea, vomiting, diarrhea, weakness, numbness, dysuria, flank pain, rash, fever, or any other concerns. In regards to his flank pain and UTI, he states he still has 1 day of Levaquin left and has been taking it. Allergies and Home Medications Allergies Coded Allergies: codeine (Verified Allergy, Severe, Anaphylaxis, 04/11/22) Patient Home Medication List Home Medication List Reviewed: Yes Acetaminophen (Tylenol Extra Strength) 500 Mg Tablet, 1,000 MG PO Q8H PRN for PAIN-MILD (1-4), (Reported) Entered as Reported by: ADRIANA WILSON on 05/29/22 1008 Ascorbic Acid (Vitamin C) 500 Mg Tablet, 500 MG PO DAILY, (Reported) Entered as Reported by: ADRIANA WILSON on 05/29/22 1008 Cholecalciferol (Vitamin D3) (Vitamin D3) 50 Mcg (2000 Unit) Capsule, 50 MCG PO DAILY, (Reported) Entered as Reported by: ADRIANA WILSON on 05/29/22 1008 Dicyclomine HCl (Dicyclomine HCl) 10 Mg Capsule, 10 MG PO Q6H PRN for ABDOMINAL PAIN Prescribed by: SONNY DAVID on 10/24/22 0607 Fluconazole (Fluconazole) 100 Mg Tablet, 100 MG PO DAILY Prescribed by: ISAÍAS VALENZUELA on 07/02/22 1122 Levofloxacin (Levofloxacin) 750 Mg Tablet, 750 MG PO Q48H Prescribed by: ISAÍAS VALENZUELA on 07/02/22 1122 Levofloxacin (Levofloxacin) 500 Mg Tablet, 500 MG PO Q48H Prescribed by: SONNY DAVID on 10/24/22 0644 Levofloxacin (Levofloxacin) 750 Mg Tablet, 750 MG PO Q48H Prescribed by: SHANAE AMADO MD on 11/23/22 1518 Magnesium Oxide (Magnesium) 400 Mg Magnesium Tablet, 400 MG PO DAILY, (Reported) Entered as Reported by: ADRIANA WILSON on 05/29/22 1008 Pantoprazole Sodium (Pantoprazole Sodium) 40 Mg Tablet.dr, 40 MG PO DAILY Prescribed by: SONNY DAVID on 10/24/22 0607 Rivaroxaban (Xarelto Starter Pack) 15 Mg (42)- 20 Mg (9) Tab.ds.pk, 1 EACH PO UD Prescribed by: ISAÍAS VALENZUELA on 07/02/22 1122 Sodium Bicarbonate (Sodium Bicarbonate) 650 Mg Tablet, 650 MG PO TID Prescribed by: ISAÍAS VALENZUELA on 07/02/22 1122 Tamsulosin HCl (Flomax) 0.4 Mg Cap, 0.4 MG PO DAILY Prescribed by: SHANAE AMADO MD on 11/23/22 1518 Review of Systems Review of Systems Constitutional: No fever EENTM: No Symptoms Reported Respiratory: No Symptoms Reported Cardiovascular: See HPI Gastrointestinal: No Symptoms Reported Genitourinary: No Symptoms Reported Musculoskeletal: no symptoms reported Skin: no symptoms reported Psychiatric/Neurological: No Symptoms Reported Endocrine: No Symptoms Reported Hematologic/Lymphatic: No Symptoms Reported Past Szgblyw-Uwctpf-Qowrxo Hx Patient Social History Substance use?: Yes Substance type: Marijuana Immunizations Up To Date First/Initial COVID19 Vaccinat: Unvaccinated Second COVID19 Vaccination Hector: Denies Third COVID19 Vaccination Date: Denies Past Medical History Surgery/Hospitalization HX: chronic renal failure, peripheral edema; CHF, noncompliance, Alcoholism Surgeries: Yes (TERP , groin I&D and debridement) Testicular Respiratory: No Currently Using CPAP: No Currently Using BIPAP: No Cardiac: Yes Cardiomyopathy, Chronic Edema/Swelling, Hypertension Neurological: No Genitourinary: Yes (marie's gangrene) Benign Prostatic Hyperpl, Kidney Infection, Renal Failure Gastrointestinal: No Musculoskeletal: No Endocrine: No HEENT: No Loss of Vision: Denies Hearing Impairment: Denies Cancer: No Psychosocial: No Integumentary: Yes Recent Skin Changes Family Medical History Cancer, Diabetes Physical Exam Vital Signs Vital Signs - First Documented 11/30/22 05:14 Pulse 101 Resp 20 B/P (MAP) 122/86 (98) Pulse Ox 100 O2 Delivery Room Air Capillary Refill : Height, Weight, BMI Height: '" Weight: lbs. oz. kg; 32.00 BMI Method: General Appearance: No Apparent Distress, Chronically ill HEENT: PERRL/EOMI, Normal ENT Inspection, Pharynx Normal Neck: Full Range of Motion, Normal Inspection, Non Tender, Supple Respiratory: Chest Non Tender, Lungs Clear, Normal Breath Sounds, No Accessory Muscle Use, No Respiratory Distress Cardiovascular: Normal Peripheral Pulses, Tachycardia Gastrointestinal: Normal Bowel Sounds, Non Tender, Soft; No Distended, No Guarding Extremity: Normal Capillary Refill, Normal Range of Motion, Non Tender, No Calf Tenderness, Pedal Edema Neurologic/Psychiatric: Alert, Oriented x3, No Motor/Sensory Deficits, Normal Mood/Affect Skin: Normal Color, Warm/Dry Progress/Results/Core Measures Results/Orders Lab Results Laboratory Tests Test 11/30/22 05:25 Range/Units White Blood Count 9.6 4.3-11.0 10^3/uL Red Blood Count 4.07 L 4.30-5.52 10^6/uL Hemoglobin 13.8 13.3-17.7 g/dL Hematocrit 41 40-54 % Mean Corpuscular Volume 101 H 80-99 fL Mean Corpuscular Hemoglobin 34 25-34 pg Mean Corpuscular Hemoglobin Concent 34 32-36 g/dL Red Cell Distribution Width 16.7 H 10.0-14.5 % Platelet Count 145 130-400 10^3/uL Mean Platelet Volume 11.0 9.0-12.2 fL Immature Granulocyte % (Auto) 2 % Neutrophils (%) (Auto) 78 H 42-75 % Lymphocytes (%) (Auto) 11 L 12-44 % Monocytes (%) (Auto) 8 0-12 % Eosinophils (%) (Auto) 2 0-10 % Basophils (%) (Auto) 1 0-10 % Neutrophils # (Auto) 7.5 1.8-7.8 10^3/uL Lymphocytes # (Auto) 1.0 1.0-4.0 10^3/uL Monocytes # (Auto) 0.7 0.0-1.0 10^3/uL Eosinophils # (Auto) 0.2 0.0-0.3 10^3/uL Basophils # (Auto) 0.1 0.0-0.1 10^3/uL Immature Granulocyte # (Auto) 0.1 0.0-0.1 10^3/uL Prothrombin Time 12.7 12.2-14.7 SEC INR Comment 0.9 0.8-1.4 Activated Partial Thromboplast Time 27 24-35 SEC Sodium Level 140 135-145 MMOL/L Potassium Level 3.6 3.6-5.0 MMOL/L Chloride Level 110 H 98-107 MMOL/L Carbon Dioxide Level 15 L 21-32 MMOL/L Anion Gap 15 H 5-14 MMOL/L Blood Urea Nitrogen 38 H 7-18 MG/DL Creatinine 4.12 H 0.60-1.30 MG/DL Estimat Glomerular Filtration Rate 15 BUN/Creatinine Ratio 9 Glucose Level 146 H 70-105 MG/DL Calcium Level 8.7 8.5-10.1 MG/DL Corrected Calcium 8.8 8.5-10.1 MG/DL Magnesium Level 1.8 1.6-2.4 MG/DL Total Bilirubin 0.3 0.1-1.0 MG/DL Aspartate Amino Transf (AST/SGOT) 18 5-34 U/L Alanine Aminotransferase (ALT/SGPT) 11 0-55 U/L Alkaline Phosphatase 96 40-136 U/L Troponin I < 0.30 <0.30 NG/ML Pro-B-Type Natriuretic Peptide 1694.0 H <125.0 PG/ML Total Protein 7.5 6.4-8.2 GM/DL Albumin 3.9 3.2-4.5 GM/DL Lipase 75 8-78 U/L My Orders Orders - BRITTA WARREN MD Cbc With Automated Diff (11/30/22 05:29) Magnesium (11/30/22 05:29) Chest 1 View Ap/Pa Only (11/30/22 05:29) Ekg Tracing (11/30/22 05:29) Comprehensive Metabolic Panel (11/30/22 05:29) Protime With Inr (11/30/22 05:29) Partial Thromboplastin Time (11/30/22 05:29) O2 (11/30/22 05:29) Monitor-Rhythm Ecg Trace Only (11/30/22 05:29) Aspirin Chewable Tablet (Baby Aspirin Ch (11/30/22 05:30) Ed Iv/Invasive Line Start (11/30/22 05:29) Lipase (11/30/22 05:29) Troponin I Fs (11/30/22 05:29) Probnp Fs (11/30/22 05:29) Vital Signs/I&O 11/30/22 05:14 Pulse 101 Resp 20 B/P (MAP) 122/86 (98) Pulse Ox 100 O2 Delivery Room Air Progress Progress Note : Progress Note 62-year-old male with above history coming in feeling like his heart is racing and pain up his neck. Differential includes PE versus ACS versus A-fib with RVR versus SVT versus some other etiology. ABCs were intact and vitals were stable on presentation. Physical exam shows that he appears to be at his baseline with his normal lower extremity edema. His legs are similar sizes, 1 is not red, they are not tender, and clinically no signs of DVT. I reviewed the patient's chart from 4 days ago, and he had a CT PE study which was negative for PE. Given no clinical changes from then, improvement in his heart rate from that day, I think is unlikely he developed a PE in that time. 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 He will need to follow-up with the vascular surgeon as an outpatient in regards to that. His CT at that time was also negative for acute dissection of his aorta. Today he has normal distal pulses and coloration of his extremities, and he is in essentially no pain objectively. Aortic dissection highly unlikely at this time. No acute EKG changes, troponin negative, given the constant pain for several hours, I think it is unlikely to be ACS related. I did offer the patient aspirin on arrival, and he refused it. Chest x-ray ordered and interpreted by me showing no obvious pneumonia, no pneumothorax, normal cardiac silhouette. Labs are significant for normal white blood cell count, normal hemoglobin, BUN and creatinine around his baseline, negative troponin, elevated proBNP around 1600. In the past that was just above the thousand as well. He does have a history of CHF as well as his CKD which is likely both contribute to this. He does have significant lower extremity edema which is chronic. No crackles on exam today, breathing comfortably, oxygen saturation 100% on room air, no clinical signs of respiratory compromise at all with him resting comfortably at the moment he arrived to the ER. He is not in any type of visible objective pain as once again he essentially fell asleep upon arrival. His EKG shows sinus rhythm, and on the monitor his heart rate is in the 90s when he is resting which is reassuring. I am not seeing any concerning findings that would warrant an admission at this time. The patient was discharged in stable condition with strict return precautions. Of note, I discussed with the patient that he absolutely needs outpatient follow-up. He is listed as seeing Dr. Osborne in the chart, has not seen her in years. I discussed given his homelessness situation, he likely would benefit a lot from [facility]. I discussed how they are able to help get people i nto homes as well which I have had success with in the past with him. Initial ECG Impression Date: Nov 30, 2022 Initial ECG Impression Time: 05:20 Initial ECG Rate: 109 Initial ECG Rhythm: S.Tach Comment Narrow QRS with a duration of 104, borderline left axis deviation, Q waves in the septal leads, no STEMI, no significant T wave inversions, appears similar to multiple prior EKGs Diagnostic Imaging Diagonstic Imaging: Xray (chest) Departure Impression Primary Impression: Palpitations Additional Impression: Neck pain Disposition: 01 HOME, SELF-CARE Condition: Stable Departure-Patient Inst. Decision time for Depature: 06:40 Referrals: [facility]WILEY MONACO MD (PCP/Family) Primary Care Physician Patient Instructions: Neck Pain ED Add. Discharge Instructions: We are not seeing any evidence of anything life-threatening or anything that would require admission to the hospital at this time. Call your doctor this morning for follow-up. Take Tylenol as needed for pain. We recommend driving down the street to [facility] this morning when they open and scheduling an appointment since you do not have a phone. They are located on [address] used to [address]. BRITTA WARREN MD Nov 30, 2022 05:40
[2022-11-30 05:55] LABS: BASOPHILS # (AUTO) 0.1 10^3/uL (0.0-0.1); BASOPHILS % (AUTO) 1 % (0-10); EOSINOPHILS # (AUTO) 0.2 10^3/uL (0.0-0.3); EOSINOPHILS % (AUTO) 2 % (0-10); HEMATOCRIT 41 % (40-54); HEMOGLOBIN 13.8 g/dL (13.3-17.7); LYMPHOCYTES % (AUTO) 11 % (12-44); MEAN CORPUSCULAR HEMOGLOBIN 34 pg (25-34); MEAN CORPUSCULAR HGB CONC 34 g/dL (32-36); MEAN CORPUSCULAR VOLUME 101 fL (80-99); MONOCYTES # (AUTO) 0.7 10^3/uL (0.0-1.0); MONOCYTES % (AUTO) 8 % (0-12); NEUTROPHILS # (AUTO) 7.5 10^3/uL (1.8-7.8); NEUTROPHILS % (AUTO) 78 % (42-75); PLATELET COUNT 145 10^3/uL (130-400); WHITE BLOOD COUNT 9.6 10^3/uL (4.3-11.0)
[2022-11-30 06:30] LABS: CREATININE SERUM 4.12 MG/DL (0.60-1.30); POTASSIUM 3.6 MMOL/L (3.6-5.0)
[2022-11-30 06:31] LABS: ALBUMIN 3.9 GM/DL (3.2-4.5); BILIRUBIN,TOTAL 0.3 MG/DL (0.1-1.0); CALCIUM 8.7 MG/DL (8.5-10.1); MAGNESIUM 1.8 MG/DL (1.6-2.4); TOTAL PROTEIN 7.5 GM/DL (6.4-8.2)
[2022-11-30 06:35] LABS: INR 0.9 (0.8-1.4); PROTHROMBIN TIME PATIENT 12.7 SEC (12.2-14.7)
[2022-11-30 06:43] VITALS: BP 132/88
--- NOTE | 2022-11-30 06:47 | Diagnostic Imaging Report ---
CLINICAL INDICATION: Patient with fast heart rate. EXAM: Portable chest x-ray upright view. COMPARISON: Chest x-ray dated 06/29/2022. FINDINGS: Lungs/pleura: Lungs are clear. There is no pneumothorax. There is no pleural effusion. Mediastinum: Unremarkable. Pulmonary vasculature: Unremarkable. Heart: Unremarkable. Bones/extrathoracic soft tissue: Unremarkable. IMPRESSION: There is no radiographic evidence of acute cardiopulmonary process. Dictated by: Dictated on workstation # [id number]
== END 2022-11-30 06:49 | disposition home or self-care (01) ==
LOC: EDUNIT# 05:09 → ER FS 05:11
DX: M54.2 Cervicalgia (principal); R00.2 Palpitations; N39.0 Urinary tract infection, site not specified; R79.89 Other specified abnormal findings of blood chemistry; Z59.00 Homelessness unspecified; Z28.310 Unvaccinated for COVID-19
CPT/HCPCS: 36415; 71045; 80053; 83690; 83735; 83880; 84484; 85025; 85610; 85730; 93005; 93041

== ENCOUNTER 2023-04-03 19:53 | Emergency (ER) | payer MEDICAID, MEDICARE ==
[~2023-04-03] VITALS: Ht 188 cm; Wt 104.3 kg
[2023-04-03] MEDS ORDERED: CALCIUM CHLORIDE 1 GM/10 ML EMERGENCY SYR INJ ONE (19:56)
[2023-04-03] MEDS ORDERED: ETOMIDATE INJ SOLN 20 MG/10 ML VIAL IV ONE (19:56)
[2023-04-03] MEDS ORDERED: AMIODARONE INJ 150 MG/3 ML VIAL IV ONE (19:56)
[2023-04-03] MEDS ORDERED: ASPIRIN 81 MG CHEWABLE TABLET PO ONE (20:00)
[2023-04-03 20:04] LABS: BASOPHILS # (AUTO) 0.1 10^3/uL (0.0-0.1); BASOPHILS % (AUTO) 1 % (0-10); EOSINOPHILS # (AUTO) 0.4 10^3/uL (0.0-0.3); EOSINOPHILS % (AUTO) 3 % (0-10); HEMATOCRIT 31 % (40-54); HEMOGLOBIN 10.3 g/dL (13.3-17.7); LYMPHOCYTES # (AUTO) 0.8 10^3/uL (1.0-4.0); LYMPHOCYTES % (AUTO) 6 % (12-44); MEAN CORPUSCULAR HEMOGLOBIN 36 pg (25-34); MEAN CORPUSCULAR HGB CONC 33 g/dL (32-36); MEAN CORPUSCULAR VOLUME 107 fL (80-99); MEAN PLATELET VOLUME 10.6 fL (9.0-12.2); MONOCYTES % (AUTO) 8 % (0-12); NEUTROPHILS # (AUTO) 10.6 10^3/uL (1.8-7.8); NEUTROPHILS % (AUTO) 82 % (42-75); PLATELET COUNT 162 10^3/uL (130-400)
--- NOTE | 2023-04-03 20:08 | ED General ---
General Stated Complaint: CHEST PAIN Source of Information: Patient Exam Limitations: No Limitations History of Present Illness Date Seen by Provider: Apr 03, 2023 Time Seen by Provider: 19:51 Initial Comments 62-year-old male with relatively new diagnosis of chronic kidney disease, unknown stage presents to the emergency department today after he called EMS for chest pain and shortness of breath. On their arrival he was found to be in monomorphic ventricular tachycardia. He received 2 mg of Ativan and defibrillation at 100 J as well as IV lidocaine and converted back to sinus rhythm. On arrival here he is alert and oriented and states he feels much better. He states he is never had this happen to him before. After about 10 minutes in the emergency department he converted back to ventricular tachycardia. His blood pressure was normal upon arrival but did drop to the 70s when he went back into ventricular tachycardia. He was alert and oriented during the entirety of his dysrhythmia. I gave him 200 mg of amiodarone, calcium gluconate. He converted back to sinus rhythm and his blood pressure improved without subsequent defibrillation at this time. He is homeless and states he has been without medications for some time and has not sought medical care. He states he had a heart catheterization "several years ago" in [place]. He is only recently set up a nephrology appointment. All other systems reviewed and negative except documented per HPI. Voice recognition software was used to help create this chart Allergies and Home Medications Allergies Coded Allergies: codeine (Verified Allergy, Severe, Anaphylaxis, 04/11/22) Patient Home Medication List Home Medication List Reviewed: Yes Acetaminophen (Tylenol Extra Strength) 500 Mg Tablet, 1,000 MG PO Q8H PRN for PAIN-MILD (1-4), (Reported) Entered as Reported by: ADRIANA WILSON on 05/29/22 1008 Ascorbic Acid (Vitamin C) 500 Mg Tablet, 500 MG PO DAILY, (Reported) Entered as Reported by: ADRIANA WILSON on 05/29/22 1008 Cholecalciferol (Vitamin D3) (Vitamin D3) 50 Mcg (2000 Unit) Capsule, 50 MCG PO DAILY, (Reported) Entered as Reported by: ADRIANA WILSON on 05/29/22 1008 Dicyclomine HCl (Dicyclomine HCl) 10 Mg Capsule, 10 MG PO Q6H PRN for ABDOMINAL PAIN Prescribed by: SONNY DAVID on 10/24/22 0607 Fluconazole (Fluconazole) 100 Mg Tablet, 100 MG PO DAILY Prescribed by: ISAÍAS VALENZUELA on 07/02/22 112 Levofloxacin (Levofloxacin) 750 Mg Tablet, 750 MG PO Q48H Prescribed by: ISAÍAS VALENZUELA on 07/02/22 112 Levofloxacin (Levofloxacin) 500 Mg Tablet, 500 MG PO Q48H Prescribed by: SONNY BARCLAYRT on 10/24/22 0644 Levofloxacin (Levofloxacin) 750 Mg Tablet, 750 MG PO Q48H Prescribed by: SHANAE AMADO MD on 11/23/22 1518 Magnesium Oxide (Magnesium) 400 Mg Magnesium Tablet, 400 MG PO DAILY, (Reported) Entered as Reported by: ADRIANA WILSON on 05/29/22 1008 Pantoprazole Sodium (Pantoprazole Sodium) 40 Mg Tablet.dr, 40 MG PO DAILY Prescribed by: SONNY DAVID on 10/24/22 0607 Rivaroxaban (Xarelto Starter Pack) 15 Mg (42)- 20 Mg (9) Tab.ds.pk, 1 EACH PO UD Prescribed by: ISAÍAS VALENZUELA on 07/02/22 112 Sodium Bicarbonate (Sodium Bicarbonate) 650 Mg Tablet, 650 MG PO TID Prescribed by: ISAÍAS VALENZUELA on 07/02/22 112 Tamsulosin HCl (Flomax) 0.4 Mg Cap, 0.4 MG PO DAILY Prescribed by: SHANAE AMADO MD on 11/23/22 1518 Review of Systems Review of Systems Constitutional: see HPI Past Gmgvseg-Fskyds-Cwloji Hx Patient Social History Tobacco Use?: Yes Use of E-Cig and/or Vaping dev: No Substance use?: No Alcohol Use?: Yes Immunizations Up To Date First/Initial COVID19 Vaccinat: Unvaccinated Second COVID19 Vaccination Hector: Denies Third COVID19 Vaccination Date: Denies Past Medical History Surgery/Hospitalization HX: chronic renal failure, peripheral edema; CHF, noncompliance, Alcoholism Surgeries: Yes (TERP , groin I&D and debridement) Testicular Respiratory: No Currently Using CPAP: No Currently Using BIPAP: No Cardiac: Yes Cardiomyopathy, Chronic Edema/Swelling, Hypertension Neurological: No Genitourinary: Yes (marie's gangrene) Benign Prostatic Hyperpl, Kidney Infection, Renal Failure Gastrointestinal: No Musculoskeletal: No Endocrine: No HEENT: No Loss of Vision: Denies Hearing Impairment: Denies Cancer: No Psychosocial: No Integumentary: Yes Recent Skin Changes Family Medical History Cancer, Diabetes Physical Exam Vital Signs Vital Signs - First Documented 04/03/23 19:53 Temp 36.6 Pulse 102 Resp 20 B/P (MAP) 125/69 (87) Pulse Ox 98 O2 Delivery Room Air Capillary Refill : Height, Weight, BMI Height: '" Weight: lbs. oz. kg; 32.00 BMI Method: General Appearance: No Apparent Distress, WD/WN HEENT: Pharynx Normal, Other (Dry mucous membranes) Neck: Non Tender, Supple Respiratory: Chest Non Tender, Lungs Clear, Normal Breath Sounds, No Accessory Muscle Use, No Respiratory Distress Cardiovascular: No Murmur, Other (Frequent PVCs with 2-5 beat runs of V. tach. Underlying sinus rhythm.) Gastrointestinal: Non Tender, Soft Extremity: Normal Capillary Refill, Normal Range of Motion, Non Tender, Other (1+ pitting edema bilateral lower extremities) Neurologic/Psychiatric: Alert, Oriented x3, No Motor/Sensory Deficits Skin: Normal Color, Warm/Dry Progress/Results/Core Measures Suspected Sepsis SIRS Temperature: Pulse: Respiratory Rate: Laboratory Tests 04/03/23 19:58: White Blood Count 13.0H Blood Pressure / Mean: Laboratory Tests 04/03/23 19:58: Creatinine 4.57H, INR Comment 1.1, Platelet Count 162, Total Bilirubin 0.3 Results/Orders Lab Results Laboratory Tests Test 04/03/23 19:58 Range/Units White Blood Count 13.0 H 4.3-11.0 10^3/uL Red Blood Count 2.90 L 4.30-5.52 10^6/uL Hemoglobin 10.3 L 13.3-17.7 g/dL Hematocrit 31 L 40-54 % Mean Corpuscular Volume 107 H 80-99 fL Mean Corpuscular Hemoglobin 36 H 25-34 pg Mean Corpuscular Hemoglobin Concent 33 32-36 g/dL Red Cell Distribution Width 15.3 H 10.0-14.5 % Platelet Count 162 130-400 10^3/uL Mean Platelet Volume 10.6 9.0-12.2 fL Immature Granulocyte % (Auto) 1 % Neutrophils (%) (Auto) 82 H 42-75 % Lymphocytes (%) (Auto) 6 L 12-44 % Monocytes (%) (Auto) 8 0-12 % Eosinophils (%) (Auto) 3 0-10 % Basophils (%) (Auto) 1 0-10 % Neutrophils # (Auto) 10.6 H 1.8-7.8 10^3/uL Lymphocytes # (Auto) 0.8 L 1.0-4.0 10^3/uL Monocytes # (Auto) 1.0 0.0-1.0 10^3/uL Eosinophils # (Auto) 0.4 H 0.0-0.3 10^3/uL Basophils # (Auto) 0.1 0.0-0.1 10^3/uL Immature Granulocyte # (Auto) 0.1 0.0-0.1 10^3/uL Neutrophils % (Manual) 81 % Lymphocytes % (Manual) 6 % Monocytes % (Manual) 10 % Eosinophils % (Manual) 2 % Basophils % (Manual) 0 % Band Neutrophils 1 % Platelet Estimate NORMAL Hypochromasia 1+ Macrocytosis 2+ Prothrombin Time 14.2 12.2-14.7 SEC INR Comment 1.1 0.8-1.4 Activated Partial Thromboplast Time 30 24-35 SEC Sodium Level 142 135-145 MMOL/L Potassium Level 3.3 L 3.6-5.0 MMOL/L Chloride Level 116 H 98-107 MMOL/L Carbon Dioxide Level 10 L 21-32 MMOL/L Anion Gap 16 H 5-14 MMOL/L Blood Urea Nitrogen 48 H 7-18 MG/DL Creatinine 4.57 H 0.60-1.30 MG/DL Estimat Glomerular Filtration Rate 14 BUN/Creatinine Ratio 11 Glucose Level 146 H 70-105 MG/DL Calcium Level 8.1 L 8.5-10.1 MG/DL Corrected Calcium 8.3 L 8.5-10.1 MG/DL Magnesium Level 1.7 1.6-2.4 MG/DL Total Bilirubin 0.3 0.1-1.0 MG/DL Aspartate Amino Transf (AST/SGOT) 10 5-34 U/L Alanine Aminotransferase (ALT/SGPT) < 5 0-55 U/L Alkaline Phosphatase 100 40-136 U/L Troponin I < 0.30 <0.30 NG/ML Total Protein 6.7 6.4-8.2 GM/DL Albumin 3.7 3.2-4.5 GM/DL My Orders Orders - JASON MARIN DO Cbc With Automated Diff (04/03/23 19:56) Magnesium (04/03/23 19:56) Chest 1 View Ap/Pa Only (04/03/23 19:56) Ekg Tracing (04/03/23 19:56) Comprehensive Metabolic Panel (04/03/23 19:56) Protime With Inr (04/03/23 19:56) Partial Thromboplastin Time (04/03/23 19:56) Monitor-Rhythm Ecg Trace Only (04/03/23 19:56) Aspirin Chewable Tablet (Aspirin Chewabl (04/03/23 20:00) Ed Iv/Invasive Line Start (04/03/23 19:56) Troponin I Fs (04/03/23 19:56) Manual Differential (04/03/23 19:58) Amiodarone For Drip (Amiodarone For Drip (04/03/23 20:15) Potassium Cl 10meq/50ml Ivpb (Kcl 10 Meq (04/03/23 20:45) Ns Iv 500 Ml (Ns Iv 500 Ml) (04/03/23 20:45) Magnesium 1 Gm/100 Ml Ivpb (Magnesium 1 (04/03/23 21:00) Ns Iv 500 Ml (Ns Iv 500 Ml) (04/03/23 21:20) Etomidate Injection (Etomidate Injection (04/03/23 19:56) Amiodarone For Bolus (Amiodarone For Karin (04/03/23 19:56) Calcium Chloride 10% Syringe (Calcium Ch (04/03/23 19:56) Medications Given in ED Vital Signs/I&O 04/03/23 04/03/23 04/03/23 04/03/23 19:53 21:15 21:50 22:45 Temp 36.6 Pulse 102 76 Resp 20 31 B/P (MAP) 125/69 (87) 120/70 Pulse Ox 98 98 100 98 O2 Delivery Room Air Room Air Room Air Room Air Capillary Refill : ECG Comment Sinus rhythm with a rate of 99 bpm. Normal intervals. Normal axis. No ST or T wave abnormalities. No ectopy. No STEMI. Critical Care Note Critical Care Total Time (minutes) 90 Departure Communication (Admissions) On arrival patient went back into [facility]. We gave him a bolus of 150mg amiodarone as well as calcium chloride due to his renal disease. He was hypotensive during this time and ultimately spontaneously converted while we were preparing for cardioversion. Blood pressure improved at this time as well. After labs return he is slightly hypokalemic and hypomagnesemic. I have ordered iv repletion. He is also on amio drip. He continued to have short runs of Vtach that would spontaneously convertto sinus rhythm after a few seconds. at approx 2109 he had a sustained run of vtach with hypotension. He was given 10mg of etomidate and cardioverted at 360J x2, ultimately with conversion to sinus rhythm. 2039: contacted [facility], pending call back for accepting physician. 2102: [facility] called [facility] and Dr Thompson accepts to cardiac ICU. 2119: [facility] called back with bed assignment, pending air transport. Impression Primary Impression: Ventricular tachycardia Additional Impressions: Chest pain Qualified Codes: R07.9 - Chest pain, unspecified Hypokalemia Hypomagnesemia Disposition: XFER SHT-TRM HOSP Condition: Critical Departure-Patient Inst. Referrals: WILEY SIMMONS MD (PCP/Family) Primary Care Physician JASON MARIN DO Apr 03, 2023 20:08
[2023-04-03] MEDS ORDERED: AMIODARONE FOR DRIP 450 MG in NORMAL SALINE (EXCEL) 250 ML 250 ML IV SCH (20:15)
[2023-04-03 20:18] LABS: INR 1.1 (0.8-1.4); PROTHROMBIN TIME PATIENT 14.2 SEC (12.2-14.7)
[2023-04-03 20:23] LABS: BAND NEUTROPHILS 1 %; BASOPHILS % (MANUAL) 0 %; EOSINOPHILS % (MANUAL) 2 %; HYPOCHROMASIA 1+; LYMPHOCYTES % (MANUAL) 6 %; MONOCYTES % (MANUAL) 10 %; NEUTROPHILS % (MANUAL) 81 %; PLATELET ESTIMATE NORMAL
[2023-04-03 20:24] LABS: CHLORIDE 116 MMOL/L (98-107); POTASSIUM 3.3 MMOL/L (3.6-5.0); SODIUM 142 MMOL/L (135-145)
[2023-04-03 20:25] LABS: ALANINE AMINOTRANSFERASE < 5 U/L (0-55); ALBUMIN 3.7 GM/DL (3.2-4.5); ALKALINE PHOSPHATASE 100 U/L (40-136); BILIRUBIN,TOTAL 0.3 MG/DL (0.1-1.0); BUN/CREATININE RATIO 11; CALCIUM 8.1 MG/DL (8.5-10.1); CARBON DIOXIDE 10 MMOL/L (21-32); CREATININE SERUM 4.57 MG/DL (0.60-1.30); GFR ESTIMATED 14; GLUCOSE 146 MG/DL (70-105); MAGNESIUM 1.7 MG/DL (1.6-2.4); TOTAL PROTEIN 6.7 GM/DL (6.4-8.2)
[2023-04-03] MEDS ORDERED: NS IV 500 ML 500 ML IV ONE (20:45)
[2023-04-03] MEDS: POTASSIUM CL 10MEQ/50ML IVPB 50 ML IV SCH ×3 (20:46→22:24)
[2023-04-03] MEDS: MAGNESIUM 1 GM/100 ML IVPB 100 ML IV SCH ×2 (21:00→22:10)
[2023-04-03] MEDS ORDERED: NS IV 500 ML 500 ML ONE (21:20)
[2023-04-03 22:45] VITALS: BP 120/70
--- NOTE | 2023-04-04 08:18 | Diagnostic Imaging Report ---
EXAMINATION: Chest 1 view HISTORY: Chest pain. COMPARISON: 11/30/2022 FINDINGS: The lungs are clear without edema or pneumonia. No pleural effusion or pneumothorax. Heart size is normal. IMPRESSION: 1. Clear lungs. Dictated by: Dictated on workstation # [id number]
== END 2023-04-03 22:45 | disposition short-term general hospital (02) ==
LOC: EDUNIT# 19:53 → ER FS 19:55
DX: I47.20 Ventricular tachycardia, unspecified (principal); E87.6 Hypokalemia; E83.42 Hypomagnesemia; Z72.0 Tobacco use; Z28.310 Unvaccinated for COVID-19
CPT/HCPCS: 36415; 71045; 80053; 83735; 84484; 85007; 85027; 85610; 85730; 93005; 93041